=== PATIENT | female | born 1940 | race Caucasian/White ===

== ENCOUNTER 2017-04-20 15:21 | Emergency (ER) | payer MEDICARE, SELFPAY ==
[2017-04-20 16:53] VITALS: BP 129/76; PULSE 92; RESP 20; TEMP 37; O2SAT 96; BMI 31.1
--- NOTE | 2017-04-20 17:01 | HMH.EDUTC ---
[facility] [place] Disposition Clinical Impression: Traumatic hematoma Fall due to ice or snow Qualifiers: Encounter type: initial encounter Qualified Code(s): W00.9XXA - Unspecified fall due to ice and snow, initial encounter Disposition: Home, Self-Care Condition on Discharge: Good Instructions: DI for Hematoma (Bruise) Additional Instructions: Ice 15-20 minutes 3-4x day Elevated as much as possible although in a difficult place Can apply emmy wrap if ensure not too tight but again, difficult place for this Tylenol as needed for pain Bruising will gradually look worse. Referrals: Leigh Ann Acuna APRN [Primary Care Provider] - (Call Saturday. Report diagnosis and that seen here. Request follow up appt as you will need continued evaluation to ensure resolving and surgeon not required. ) Time of Disposition: 19:26 Medical Decision Making Vital Signs: 04/20/17 16:53 Temperature 98.6 F Temperature Source Temporal Artery Scan Pulse Rate [Right Radial] 92 H Respiratory Rate 20 Blood Pressure [Right Arm] 129/76 Blood Pressure Mean [Right Arm] 93 Blood Pressure Source [Right Arm] Automatic Cuff Blood Pressure Position [Right Arm] Sitting 02 Sat by Pulse Oximetry 96 Oxygen Delivery Method Room Air - Lab Data Lab results reviewed: Yes: I reviewed the patient's lab results. Lab Results 04/20/17 17:10: WBC 9.8, RBC 5.54 H, Hgb 13.8, Hct 44.2, MCV 79.7 L, MCH 24.9 L, MCHC 31.3 L, RDW 22.3 H, Plt Count 389, MPV 7.2 L, Neut % (Auto) 67.0, Lymph % (Auto) 22.0, [place] % (Auto) 6.5, Eos % (Auto) 3.8, Baso % (Auto) 0.7, Neut # (Auto) 6.6, Lymph # (Auto) 2.2, [place] # (Auto) 0.6, Eos # (Auto) 0.4, Baso # (Auto) 0.1 04/20/17 17:10: PT 15.4 H, INR 1.42 H, APTT 33.3 04/20/17 17:10: Sodium 141, Potassium 3.2 L, Chloride 100, Carbon Dioxide 34 H, Anion Gap 10.2, BUN 14, Creatinine 0.96, Estimated Creat Clear 56, Estimated GFR 56 L, Est GFR ( Amer) 68, Glucose 88, Total Creatine Kinase 76 Result diagrams: 04/20/17 17:10 04/20/17 17:10 - Radiology Data #1 Image(s): Pelvis, Hip, Other (femur) Image Reviewed: Yes I have reviewed radiologist's interpretation No acute findings - Physician Consults Physician Consulted: Dr. Frey, ER MD Reason -: Pt condition Comment/Response: Discussed PMHx, meds, HPI, exam with ER MD considering size of hematoma. Suggest CPK, CBC, BMP, PT, PTT, INR, hip and pelvis xray although no hip pain. 1919: Discussed pt's results with Dr. Frey. Have patient follow up with primary care Saturday. No treatment or medication changes necessary tonight. - Edvin Inquiry Pt receiving controlled substance: No - Reevaluation(s) Time: 18:50 Reevaluation #1: Went to discuss pt with Dr. Frey, ER MD. He is suturing. Patient updated that he will call be once finished. Provided with water. [facility] [place] HPI - General Stated complaint: ao [id number] fellinjured r hip&Leg Time Seen by Provider: 04/20/17 17:01 Mode of Arrival: Family Vehicle Source of Information: Patient Limitations: No Limitations Description of Symptoms (Recalled from Triage Doc. by RN): PT FELL YESTERDAY AND HAS KNOT ON RIGHT THIGH. HEENT Symptoms (Recalled from RN notes): No Resp Symptoms (Recalled from RN notes): No Skin Symptoms (Recalled from RN notes): No MS Symptoms (Recalled from RN notes): Yes (PT FELL AND HAS KNOT ON RIGHT THIGH) Functional Status (Recalled from RN notes): NA - History of Present Illness Provider Complaint: Here w/ daughter c/o swelling to right thigh after slipping on porch yesterday, covered with ice. States smacked right lateral lower leg on concrete. Denies joint pain or limited ROM. Just this knot hurts . Knot bruised today. No fever. No treatment before arrival. pt does take xarelto and ASA along with a list of other medications - Related Data Home Medications Medication Instructions Recorded Confirmed aspirin 81 mg tablet,delayed 81 mg PO .qday tab 04/02/17 04/20/17 release atorvastatin 80 mg tab
--- NOTE | 2017-04-20 17:11 | ED_ITS ---
[facility] [place] Clinical Impression: Traumatic hematoma Fall due to ice or snow Qualifiers: Encounter type: initial encounter Qualified Code(s): W00.9XXA - Unspecified fall due to ice and snow, initial encounter Disposition: Home, Self-Care Condition on Discharge: Good Instructions: DI for Hematoma (Bruise) Additional Instructions: Ice 15-20 minutes 3-4x day Elevated as much as possible although in a difficult place Can apply emmy wrap if ensure not too tight but again, difficult place for this Tylenol as needed for pain Bruising will gradually look worse. Referrals: Leigh Ann Acuna APRN [Primary Care Provider] - (Call Saturday. Report diagnosis and that seen here. Request follow up appt as you will need continued evaluation to ensure resolving and surgeon not required. ) Time of Disposition: 19:26 Medical Decision Making Vital Signs: 04/20/17 16:53 Temperature 98.6 F Temperature Source Temporal Artery Scan Pulse Rate [Right Radial] 92 H Respiratory Rate 20 Blood Pressure [Right Arm] 129/76 Blood Pressure Mean [Right Arm] 93 Blood Pressure Source [Right Arm] Automatic Cuff Blood Pressure Position [Right Arm] Sitting 02 Sat by Pulse Oximetry 96 Oxygen Delivery Method Room Air - Lab Data Lab results reviewed: Yes: I reviewed the patient's lab results. Lab Results 04/20/17 17:10: WBC 9.8, RBC 5.54 H, Hgb 13.8, Hct 44.2, MCV 79.7 L, MCH 24.9 L , MCHC 31.3 L, RDW 22.3 H, Plt Count 389, MPV 7.2 L, Neut % (Auto) 67.0, Lymph % (Auto) 22.0, [place] % (Auto) 6.5, Eos % (Auto) 3.8, Baso % (Auto) 0.7, Neut # ( Auto) 6.6, Lymph # (Auto) 2.2, Fisher # (Auto) 0.6, Eos # (Auto) 0.4, Baso # (Auto ) 0.1 04/20/17 17:10: PT 15.4 H, INR 1.42 H, APTT 33.3 04/20/17 17:10: Sodium 141, Potassium 3.2 L, Chloride 100, Carbon Dioxide 34 H, Anion Gap 10.2, BUN 14, Creatinine 0.96, Estimated Creat Clear 56, Estimated GFR 56 L, Est GFR ( Amer) 68, Glucose 88, Total Creatine Kinase 76 Result diagrams: 04/20/17 17:10 04/20/17 17:10 - Radiology Data #1 Image(s): Pelvis, Hip, Other (femur) Image Reviewed: Yes I have reviewed radiologist's interpretation No acute findings - Physician Consults Physician Consulted: Dr. Frey, ER MD Reason -: Pt condition Comment/Response: Discussed PMHx, meds, HPI, exam with ER MD considering size of hematoma. Suggest CPK, CBC, BMP, PT, PTT, INR, hip and pelvis xray although no hip pain. 1919: Discussed pt's results with Dr. Frey. Have patient follow up with primary care Saturday. No treatment or medication changes necessary tonight. - Edvin Inquiry Pt receiving controlled substance: No - Reevaluation(s) Time: 18:50 Reevaluation #1: Went to discuss pt with Dr. Frey, ER MD. He is suturing. Patient updated that he will call be once finished. Provided with water. [facility] [place] - General Stated complaint: ao [id number] fellinjured r hip&Leg Time Seen by Provider: 04/20/17 17:01 Mode of Arrival: Family Vehicle Source of Information: Patient Limitations: No Limitations Description of Symptoms (Recalled from Triage Doc. by RN): PT FELL YESTERDAY AND HAS KNOT ON RIGHT THIGH. HEENT Symptoms (Recalled from RN notes): No Resp Symptoms (Recalled from RN notes): No Skin Symptoms (Recalled from RN notes): No MS Symptoms (Recalled from RN notes): Yes (PT FELL AND HAS KNOT ON RIGHT THIGH) Functional Status (Recalled from RN notes): NA - History of Present Illness Provider Complaint: Here w/
--- NOTE | 2017-04-20 17:11 | XR_ITS ---
XR femur RT 2V COMPARISON: None HISTORY: Fell yesterday has hematoma right thigh TECHNIQUE: AP and crosstable lateral views FINDINGS: Right femur is intact with no evidence of recent or old fracture. There is prominent degenerative change of the knee with joint space narrowing both medially and laterally and spurring of the tibial spines. There is diffuse soft tissue swelling of the lateral mid and upper thigh likely due to the known large hematoma. There are no soft tissue foreign bodies or calcifications. IMPRESSION: Prominent degenerative changes of the knee, right femur negative for fracture
--- NOTE | 2017-04-20 17:21 | XR_ITS ---
XR hip RT 2-3V w/pelvis COMPARISON: None HISTORY: Fell on concrete yesterday. TECHNIQUE: AP pelvis cone-down AP and frog-leg views right hip FINDINGS: The iliac bones and pubic bones appear intact. There is prominent spurring of the acetabulum of both hips. There is no significant joint space narrowing on either side is no fracture seen either hip. There is normal range of motion of the right hip on the frog-leg view. SI joints and symphysis pubis are normal. IMPRESSION: Mild degenerative changes of both hips, pelvis and hips negative for fracture
[2017-04-20 17:59] LABS: Basophils # 0.1 K/mm3 (0-0.2); Basophils % 0.7 % (0.1-2.0); Eosinophils # 0.4 K/mm3 (0.0-0.4); Eosinophils % 3.8 % (0.1-12.0); Hematocrit 44.2 % (37.0-47.0); Hemoglobin 13.8 g/dL (12.2-16.2); Lymphocytes # 2.2 K/mm3 (0.7-4.5); Mean Corpuscular HGB Conc 31.3 g/dL (31.8-35.4); Mean Corpuscular Hemoglobin 24.9 pg (27.0-31.2); Mean Corpuscular Volume 79.7 fl (81-99); Mean Platelet Volume 7.2 fl (7.4-10.4); Monocytes # 0.6 K/mm3 (0.1-1.0); Monocytes % 6.5 % (1.7-9.3); Neutrophils # 6.6 K/mm3 (1.8-7.8); Platelet Count 389 K/mm3 (142-424); Red Blood Count 5.54 M/mm3 (4.20-5.40); Red Cell Distribution Width 22.3 % (11.5-17.5); White Blood Count 9.8 K/mm3 (4.8-10.8)
[2017-04-20 18:06] LABS: Activated Partial Thrombo Time 33.3 seconds (23.6-34.0); INR 1.42 (0.9-1.1); Prothrombin Time 15.4 seconds (9.4-11.8)
[2017-04-20 18:10] LABS: Anion Gap 10.2 mEq/L (5-15); Blood Urea Nitrogen 14 mg/dL (7-18); Carbon Dioxide 34 mmol/L (21.0-32.0); Chloride 100 mmol/L (98-107); Creatine Kinase 76 U/L (26-192); Creatinine Clearance Estimated 56 mL/min (0-300); Creatinine,Serum 0.96 mg/dL (0.55-1.02); Estimated Glomerular Filt Rate 56 ml/min (>60); GFR (African American) 68 ML/MIN (>60); Glucose 88 mg/dL (74-106); Potassium 3.2 mmoL/L (3.5-5.1); Sodium 141 mmol/L (136-145)
[2017-04-20 19:28] VITALS: BP 136/77; PULSE 88; RESP 20; TEMP 36.4; O2SAT 98
== END 2017-04-20 19:31 | disposition home or self-care (01) ==
PROVIDERS: Emergency Provider Nurse Practitioner Family; Family Provider Nurse Practitioner Family; PCP Nurse Practitioner Family
DX: S70.11XA Contusion of right thigh, initial encounter (principal); W00.9XXA Unspecified fall due to ice and snow, initial encounter
CPT/HCPCS: 73502; 73552; 80048; 82550; 85025; 85610; 85730; 99201; 99202

== ENCOUNTER 2017-11-02 18:37 | Inpatient (IN) ==
[2017-11-02 19:23] LABS: Basophils # 0.1 K/mm3 (0-0.2); Basophils % 0.5 % (0.1-2.0); Eosinophils # 0.1 K/mm3 (0.0-0.4); Eosinophils % 0.8 % (0.1-12.0); Hematocrit 46.6 % (37.0-47.0); Hemoglobin 16.5 g/dL (12.2-16.2); Lymphocytes # 2.1 K/mm3 (0.7-4.5); Lymphocytes % 14.4 K/mm3 (10-50); Mean Corpuscular HGB Conc 35.5 g/dL (31.8-35.4); Mean Corpuscular Hemoglobin 31.9 pg (27.0-31.2); Mean Corpuscular Volume 89.9 fl (81-99); Mean Platelet Volume 7.4 fl (7.4-10.4); Monocytes # 1.1 K/mm3 (0.1-1.0); Monocytes % 7.7 % (1.7-9.3); Neutrophils # 11.1 K/mm3 (1.8-7.8); Neutrophils % 76.6 % (37.0-80.0); Platelet Count 325 K/mm3 (142-424); Red Blood Count 5.18 M/mm3 (4.20-5.40); Red Cell Distribution Width 14.6 % (11.5-17.5); White Blood Count 14.5 K/mm3 (4.8-10.8)
[2017-11-02 19:25] LABS: Microscopic, Urine URINE MICROSCOPIC (MICROSCOPIC)
[2017-11-02 19:27] LABS: INR 1.34 (0.9-1.1); Prothrombin Time 13.7 seconds (9.4-11.8)
--- NOTE | 2017-11-02 19:29 | Emergency Department Note ---
ED Disposition Condition on Discharge: Serious - Critical Care Critical Care Time: No <SravaniDick - Last Filed: 11/02/17 20:01> <Tushar Chairez - Last Filed: 11/02/17 21:16> Clinical Impression: Severe sepsis, Acute respiratory failure with hypoxia, Hypokalemia, Acute exacerbation of chronic obstructive airways disease UTI (urinary tract infection) Qualifiers: Urinary tract infection type: site unspecified Hematuria presence: without hematuria Qualified Code(s): N39.0 - Urinary tract infection, site not specified Atrial fibrillation Qualifiers: Atrial fibrillation type: chronic Qualified Code(s): I48.2 - Chronic atrial fibrillation Disposition: Admitted As Inpatient Referrals: Leigh Ann Acuna APRN [Primary Care Provider] - Attestation: On 11/02/17, the high probability of a clinically significant, sudden or life threatening deterioration of the following system(s) required my full and direct attention, intervention and personal management. The time I documented below is in addition to time spent performing reported procedures but includes the following listed in this critical care notation. Medical Decision Making - Edvin Inquiry Pt receiving controlled substance: No - Lab Data Result diagrams: 11/02/17 19:00 11/02/17 19:00 - Radiology Data #1 Image(s): Chest Image Reviewed: Yes I reviewed the patient's radiology image - CT Data CT Scan: Head Time Received: 20:[address] Reviewed: Yes: I have viewed the radiologist's interpretation <SravaniDick - Last Filed: 11/02/17 20:01> - Lab Data Lab results reviewed: Yes: I reviewed the patient's lab results. Result diagrams: 11/02/17 19:00 11/02/17 19:00 - ECG Data Tracing #1 I reviewed this ECG and interpreted as documented below: Arrhythmias present: afib Ischemic changes: non-specific ST-T wave changes ECG compared to prior tracings: there are no significant changes - Physician Consults Physician Consulted: breezy Reason -: Admission - Tissue Perfus/Sepsis Re-Eval Reperfusion Exam Performed: Yes Date Performed: 11/02/17 Time Performed: 21:00 Sepsis Follow-Up: Yes: Respiratory exam, Cardiovascular exam, Capillary refill, Peripheral pulse strength, Peripheral pulse location, Skin exam, Vital Signs <Tushar Chairez - Last Filed: 11/02/17 21:16> Vital Signs: 11/02/17 18:50 11/02/17 19:11 11/02/17 20:08 Temperature 100.4 F H Temperature Source Oral Pulse Rate Pulse Rate [Right Radial] 121 H 117 H 105 H Respiratory Rate 24 20 Blood Pressure [Right Arm] 160/78 177/98 145/82 Blood Pressure Mean [Right Arm] 105 124 103 Blood Pressure Source [Right Arm] Automatic Cuff Automatic Cuff Automatic Cuff Blood Pressure Position [Right Arm] Sitting Sitting Supine 02 Sat by Pulse Oximetry 84 L 74 L 93 L Oxygen Delivery Method Room Air Room Air 11/02/17 20:41 11/02/17 20:50 11/02/17 20:51 Temperature 100.3 F H Temperature Source Oral Pulse Rate 83 83 Pulse Rate [Right Radial] Respiratory Rate Blood Pressure [Right Arm] Blood Pressure Mean [Right Arm] Blood Pressure Source [Right Arm] Blood Pressure Position [Right Arm] 02 Sat by Pulse Oximetry Oxygen Delivery Method - Lab Data Lab Results 11/02/17 18:05: Urine Color Yellow, Urine Appearance Sl cloudy, Urine pH 6.5, Ur Specific [place] 1.010, Urine Protein Trace, Urine Glucose (UA) Negative, Urine Ketones Negative, Urine Blood 1+, Urine Nitrate Positive, Urine Bilirubin Negative, Urine Urobilinogen 0.2, Ur Leukocyte Esterase 2+ A, Urine RBC Occasional, Urine WBC 10-20, Ur Squamous Epith Cells 5-10, Urine Bacteria 4+ 11/02/17 19:00: WBC 14.5 H, RBC 5.18, Hgb 16.5 H, Hct 46.6, MCV 89.9, MCH 31.9 H , MCHC 35.5 H, RDW 14.6, Plt Count 325, MPV 7.4, Neut % (Auto) 76.6, Lymph % ( Auto) 14.4, [place] % (Auto) 7.7, Eos % (Auto) 0.8, Baso % (Auto) 0.5, Neut # (Auto ) 11.1 H, Lymph # (Auto) 2.1, [place] # (Auto) 1.1 H, Eos # (Auto) 0.1, Baso # ( Auto) 0.1 11/02/17 19:00: PT 13.7 H, INR 1.34 H 11/02/17 19:00: Sodium 139, Potassium 3.2 L, Chloride 97 L, Carbon Dioxide 31, Anion Gap 14.2, BUN 15, Creatinine 1.43 H, Estimated Creat Clear 35, Estimated GFR 35 L, Est GFR ( Amer) 43 L, Glucose 143 H, Calcium 8.7, Total Bilirubin 1.4 H, AST 16, ALT 25, Alkaline Phosphatase 123 H, Total Creatine Kinase 61, CK-MB (CK-2) 0.6, CK-MB (CK-2) Rel Index 1.0, Troponin I < 0.02, Total Protein 8.3 H, Albumin 3.7, Globulin 4.6 H, Albumin/Globulin Ratio 0.8 L 11/02/17 19:00: Lactate 4.2 H 11/02/17 19:17: Urine Color Yellow, Urine Appearance Clear, Urine pH 7.0, Ur Specific [place] 1.015, Urine Protein 2+, Urine Glucose (UA) Negative, Urine Ketones Negative, Urine Blood 1+, Urine Nitrate Positive A, Urine Bilirubin Negative, Urine Urobilinogen 1, Ur Leukocyte Esterase 1+ A 11/02/17 20:34: ABG pH 7.47 H, ABG pCO2 38.7, ABG pO2 58.0 L, ABG HCO3 27.7 H, ABG Total CO2 28.8 H, ABG O2 Saturation 91, ABG Base Excess 4.0 H Orders (Tests/Meds): ED MEDICATIONS Generic Name Dose Route Start Last Admin Trade Name Freq PRN Reason Stop Dose Admin Albuterol/Ipratropium 3 ml 11/02/17 20:00 11/02/17 20:50 Duoneb 3ml Neb IH 12/02/17 19:59 3 ml QIDRT ESTRELLA Administration Ceftriaxone Sodium 1 gm/ 50 mls @ 100 mls/hr 11/02/17 19:30 11/02/17 19:39 Sodium Chloride IV 11/16/17 19:29 100 mls/hr Q24H ESTRELLA Administration Protocol Sodium Chloride 2,110 mls @ 1,055 mls/hr 11/02/17 19:55 11/02/17 20:04 Sod Chlor 0.9% 1000ml Bag 30 ml/kg infuse over 2 hr (2110 ml) 11/02/17 21: 54 1,055 mls/hr IV Administration .Q2H ONE Discontinued Medications Generic Name Dose Route Start Last Admin Trade Name Nicho PRN Reason Stop Dose Admin Acetaminophen 650 mg 11/02/17 19:39 11/02/17 19:40 Acetaminophen 325mg Tab PO 11/02/17 19:40 650 mg ONCE ONE Administration Methylprednisolone Sodium Succinate 125 mg 11/02/17 19:30 11/02/17 19:39 Solu-Medrol 125mg/2ml Vial IV 11/02/17 19:31 125 mg ONCE ONE Administration Potassium Chloride 40 meq 11/02/17 19:47 11/02/17 20:10 Klor-Con 20meq Tablet PO 11/02/17 19:48 40 meq ONCE ONE Administration ORDERS Category Date Time Status CT head/brain wo con Stat Cat Scan 11/02/17 19:29 Taken XR chest portable Stat Exams 11/02/17 19:07 Taken Urine Culture Stat Micro 11/02/17 18:05 Received Urine Culture Stat Micro 11/02/17 19:09 Uncollected ABG [Arterial Blood Gas] Stat RT 11/02/17 19:17 Ordered 12-lead EKG Request [ECG Request by Dr/Nse] Stat Y 11/02/17 19:09 Ordered - Radiology Data #1 atelectasis left base, no definite infiltrate (Dick Lassiter) - CT Data Findings Narrative: CT scan interpreted by [facility] radiologist. Faxed report received and reviewed: No acute intracranial findings (Dick Lassiter) Medical Decision Narrative: 8:00 PM: At shift change, I have discussed the patient with Dr. Chairez, who will assume care of the patient at this time. I have discussed all clinical information including history, physical and diagnostic study results. Preliminary diagnoses based on information available at this point have been recorded by me. Controlled substance administration and critical care statement are also preliminary, as of the time of handoff. (Dick Lassiter) General Adult HPI - General Mode of Arrival: Wheelchair Limitations: No Limitations Description of Symptoms (Recalled from ER Triage Doc. by RN): Pt currently has a UTI, she was treated for a sinus infection 2 wks ago. Today she is complaining of burning with urination, lethargy, and increased difficulty breathing. Pt doesn't remember falling but she has a red spot on her left restorationism. She thinks she nodded off and leaned side ways hitting her head on the dresser. <Dick Lassiter - Last Filed: 11/02/17 20:01> - General Source of Information: Patient, Relative, Medical Record <ContrerasTushar Kenny - Last Filed: 11/02/17 21:16> - General Chief complaint: Shortness of Breath/Dyspnea Stated complaint: Weakness, frequent urination Time Seen by Provider: 11/02/17 19:27 - History of Present Illness HPI narrative: History from Ronan López [employer] for Dr. Chairez, patient, and daughter. The patient came in today and went to the urgent treatment center for dysuria. She was found to have hypoxemia there. She initially denied shortness of breath , but now admits that she has increasing shortness of breath for 3 days. She is diagnosed with COPD and in fact saw Dr. Cason, commander internal affairs, a year ago and he wanted her on oxygen, but she refused. She has had a cough recently, nonproductive. She feels feverish, but no documented fever. She has rhinorrhea. Denies chest pain. She has never been a smoker. Daughter states she has been falling asleep in mid sentence for the past few days. Sleepy all the time. She has a bump on her left restorationism area. Thinks she might have fallen asleep and fallen and bumped her head on something today. Denies headache currently, but says she had one earlier. (Dick Lassiter) - Related Data Home Medications Medication Instructions Recorded Confirmed aspirin 81 mg tablet,delayed 81 mg PO .qday tab 04/02/17 11/02/17 release atorvastatin 80 mg tablet 80 mg PO Q24H tab 04/02/17 11/02/17 ferrous sulfate 325 mg (65 mg 325 mg PO DAILY tab 05/01/17 11/02/17 iron) tablet metformin 500 mg tablet 500 mg PO DAILY tab 05/23/17 11/02/17 Buspirone HCl 15 mg PO BID 11/02/17 11/02/17 Levothyroxine Sodium [Tirosint] 75 mcg PO DAILY 11/02/17 11/02/17 Previous Rx's Medication Instructions Recorded bisoprolol fumarate 5 mg tablet 5 mg PO DAILY #90 tab 05/27/17 diltiazem CD 180 mg 180 mg PO Q24H #30 cap 06/04/17 capsule,extended release 24 hr rivaroxaban 20 mg tablet 20 mg PO DAILY #30 tab 09/02/17 furosemide 80 mg tablet 80 mg PO Q24H #30 tab 09/09/17 digoxin 125 mcg tablet 125 mcg PO Q24H #30 tab 09/26/17 Allergies Allergy/AdvReac Type Severity Reaction Status Date / Time warfarin [From Coumadin] Allergy Mild Verified 11/02/17 19:22 amiodarone [AMIODARONE] Allergy Unknown Verified 11/02/17 19:22 PEROXIDE Allergy Mild S-BLISTERING Uncoded 03/05/17 14:31 [facility] History I have reviewed the patient's past medical history: Yes Medical History: Reports:: Atrial Fibrillation, Congestive Heart Failure, Coronary Artery Disease, Diabetes Mellitus Type 2, Gastroesophageal Reflux Disease(GERD), Hypertension Other Medical History: Reports: Arthritis Laterality Cases: Right: Arthroscopy Knee, Carpal Tunnel Release, Bilateral: Other Other Surgeries: Yes: Angioplasty, Appendectomy, Hysterectomy-Total, Hysterectomy-Partial Amputation: No Fractures: No - Social History Smoking Status: Never smoker Alcohol Intake: never Family Hx:: Cancer, Heart Attack Comment: Son-Cerebrovascular accident <Dick Lassiter - Last Filed: 11/02/17 20:01> ROS Obtained: Yes All systems reviewed & no additional complaints - Constitutional Constitutional: Reports chills - Cardiovascular Cardiovascular: Denies chest pain - Respiratory Respiratory: No change in phlegm color, Yes cough, Yes dyspnea, No excessive phlegm production, No coughing up blood - Gastrointestinal Gastrointestingal: Denies: abdominal pain, vomiting - Genitourinary Female Genitourinary: Reports dysuria <Dick Lassiter - Last Filed: 11/02/17 20:01> Physical Exam - General General appearance: alert, in no apparent distress - Head Head exam: other (Erythema edema and tenderness left restorationism area, approximately 5 x 10 cm) - Eye Eye exam: Present: normal appearance, PERRL, EOMI - ENT ENT exam: Present: normal exam, normal oropharynx, mucous membranes moist, TM's normal bilaterally, normal external ear exam - Neck Neck exam: Present: normal inspection, full ROM, trachea midline. Absent: meningismus, lymphadenopathy - Chest Chest inspection: Present: normal inspection, symmetric chest wall rise. Absent : tenderness - Respiratory Respiratory exam: Present: normal lung sounds bilaterally. Absent: respiratory distress - Cardiovascular Cardiovascular exam: Present: regular rate, normal rhythm. Absent: JVD - Abdominal Exam Abdominal exam: Present: soft, normal bowel sounds. Absent: distention, tenderness, guarding - Extremities Exam Extremities exam: Present: normal inspection, full ROM, normal capillary refill. Absent: calf tenderness - Back Exam Back exam: Present: normal inspection. Absent: tenderness, CVA tenderness (R), CVA tenderness (L) - Neurological Exam Neurological exam: Present: alert, oriented X3 - Psychiatric Psychiatric exam: Present: normal affect, normal mood - Skin Skin exam: Present: warm, dry, intact, cyanosis (Nailbeds) <Dick Lassiter - Last Filed: 11/02/17 20:01> <Tushar Chairez - Last Filed: 11/02/17 21:16> - General Comment: Pulse ox 90% on nasal cannula oxygen (Dick Lassiter)
[2017-11-02 19:36] LABS: Appearance,Urine SL CLOUDY (Clear); Bilirubin,Urine Negative (Negative); Blood, Urine 1+ (Negative); Color,Urine YELLOW (Yellow); Glucose,Urine (UA) Negative (Negative); Ketones,Urine Negative (Negative); Leukocyte Esterase,Urine 2+ (Negative); PH,Urine 6.5 (5.0-8.5); Protein,Urine TRACE (Negative); Urobilinogen,Urine 0.2 EU/dl (0.2)
[2017-11-02 19:46] LABS: Alanine Aminotransferase 25 U/L (12-78); Albumin Level 3.7 gm/dL (3.4-5.0); Albumin/Globulin Ratio 0.8 (1.1-1.8); Alkaline Phosphatase 123 U/L (46-116); Anion Gap 14.2 mEq/L (5-15); Aspartate Amino Transferase 16 U/L (15-37); Bilirubin,Total 1.4 mg/dL (0.2-1.0); Blood Urea Nitrogen 15 mg/dL (7-18); Calcium 8.7 mg/dL (8.5-10.1); Carbon Dioxide 31 mmol/L (21.0-32.0); Chloride 97 mmol/L (98-107); Creatine Kinase 61 U/L (26-192); Globulin 4.6 gm/dl (1.3-3.2); Glucose 143 mg/dL (74-106); Potassium 3.2 mmoL/L (3.5-5.1); Sodium 139 mmol/L (136-145); Total Protein,Serum 8.3 gm/dL (6.4-8.2)
[2017-11-02 19:54] LABS: Bacteria,Urine 4+ /lpf; RBC,Urine Occasional #/hpf (0-3)
[2017-11-02 20:35] LABS: ABG HCO3 27.7 mmhg (22.0-26.0); ABG Oxygen Saturation 91 % (90-100); ABG PCO2 38.7 mmhg (35.0-45.0); ABG PH 7.47 mmol/L (7.35-7.45); ABG TCO2 28.8 mmhg (23-27)
[2017-11-02 21:27] LABS: Digoxin 0.54 ng/mL (1.15-2.56); T4 (Thyroxine) 10.7 ug/dl (4.7-13.3); Thyroid Stimulating Hormone 1.13 uIU/ml (0.358-3.740)
[2017-11-03 05:44] LABS: Basophils % 0.3 % (0.1-2.0); Eosinophils % 0.1 % (0.1-12.0); Hematocrit 43.9 % (37.0-47.0); Lymphocytes # 0.7 K/mm3 (0.7-4.5); Lymphocytes % 7.4 K/mm3 (10-50); Mean Corpuscular HGB Conc 32.7 g/dL (31.8-35.4); Mean Corpuscular Hemoglobin 29.7 pg (27.0-31.2); Mean Corpuscular Volume 90.9 fl (81-99); Mean Platelet Volume 6.9 fl (7.4-10.4); Monocytes # 0.4 K/mm3 (0.1-1.0); Neutrophils % 88.2 % (37.0-80.0); Platelet Count 227 K/mm3 (142-424); Red Blood Count 4.83 M/mm3 (4.20-5.40); Red Cell Distribution Width 14.4 % (11.5-17.5); White Blood Count 9.1 K/mm3 (4.8-10.8)
[2017-11-03 05:46] LABS: Anion Gap 8.8 mEq/L (5-15); Potassium 3.8 mmoL/L (3.5-5.1)
[2017-11-03 05:52] LABS: Calcium 7.8 mg/dL (8.5-10.1)
[2017-11-03 06:16] LABS: Hemoglobin 14.4 g/dL (12.2-16.2)
--- NOTE | 2017-11-03 07:39 | History & Physical Report ---
*Admission Date: 11/02/17 *Chief complaint: Urinary urgency *History of present illness: 77-year-old female presented to the urgent treatment clinic yesterday with complaint of urinary urgency and frequency. In the [facility] she was noted to be hypoxic on check of her vital signs and she was transferred over to the emergency department. Patient does admit that over the preceding 24-48 hours she had noticed some mild shortness of breath. Workup in the emergency department was begun. Patient informed ER staff she had been battling a urinary tract infection for about 2 weeks with sensation of urinary urgency with incomplete bladder emptying. While she denies fever she had also endorsed chills over the preceding 24 hours. Workup was significant for hypoxia, tachycardia, elevation of white blood cell count, abnormal urine. Patient met criteria for sepsis and was treated as such with fluid bolus. She was given Rocephin for her urinary tract infection and admitted. This morning she states she is feeling better and has not had any urinary symptoms overnight [facility] History I have reviewed the patient's past medical history: Yes Medical History: Reports:: Atrial Fibrillation, Congestive Heart Failure, Coronary Artery Disease, Diabetes Mellitus Type 2, Gastroesophageal Reflux Disease(GERD), Hypertension Other Medical History: Reports: Arthritis Laterality Cases: Right: Arthroscopy Knee, Carpal Tunnel Release, Bilateral: Other Other Surgeries: Yes: Angioplasty, Appendectomy, Hysterectomy-Total, Hysterectomy-Partial Amputation: No Fractures: No - *Social History Smoking Status: Never smoker Alcohol Intake: former Occupational Status: retired - Psychiatric History Expresses thoughts of harming self/others: None Suicide Plan Description: No Plan *Family Hx:: Cancer, Heart Attack Review of Systems - Review of Systems Review of systems:: pertinent systems reviewed and negative unless documented below See HPI Meds Home Medications Medication Instructions Recorded Confirmed Type aspirin 81 mg tablet,delayed 81 mg PO .qday tab 04/02/17 11/02/17 History release atorvastatin 80 mg tablet 80 mg PO Q24H tab 04/02/17 11/02/17 History ferrous sulfate 325 mg (65 mg 325 mg PO DAILY tab 05/01/17 11/02/17 History iron) tablet metformin 500 mg tablet 500 mg PO DAILY tab 05/23/17 11/02/17 History Buspirone HCl 15 mg PO BID 11/02/17 11/02/17 History Digoxin 125 mcg PO Q48H 11/02/17 11/02/17 History Levothyroxine Sodium [Tirosint] 75 mcg PO DAILY 11/02/17 11/02/17 History Allergies Allergy/AdvReac Type Severity Reaction Status Date / Time warfarin [From Coumadin] Allergy Mild Verified 11/02/17 19:22 amiodarone [AMIODARONE] Allergy Unknown Difficulty Verified 11/02/17 21:54 Breathing PEROXIDE Allergy Mild S-BLISTERING Uncoded 03/05/17 14:31 WELTS Exam Vital signs and Labs for Last 24 Hours: Temp Pulse Resp BP Pulse Ox 98.0 F 80 16 129/59 90 L 11/03/17 07:24 11/03/17 07:24 11/03/17 07:24 11/03/17 07:24 11/03/17 07:24 Laboratory Results - last 24 hr 11/02/17 18:05: Urine Color Yellow, Urine Appearance Sl cloudy, Urine pH 6.5, Ur Specific [place] 1.010, Urine Protein Trace, Urine Glucose (UA) Negative, Urine Ketones Negative, Urine Blood 1+, Urine Nitrate Positive, Urine Bilirubin Negative, Urine Urobilinogen 0.2, Ur Leukocyte Esterase 2+ A, Urine RBC Occasional, Urine WBC 10-20, Ur Squamous Epith Cells 5-10, Urine Bacteria 4+ 11/02/17 19:00: WBC 14.5 H, RBC 5.18, Hgb 16.5 H, Hct 46.6, MCV 89.9, MCH 31.9 H , MCHC 35.5 H, RDW 14.6, Plt Count 325, MPV 7.4, Neut % (Auto) 76.6, Lymph % ( Auto) 14.4, [place] % (Auto) 7.7, Eos % (Auto) 0.8, Baso % (Auto) 0.5, Neut # (Auto ) 11.1 H, Lymph # (Auto) 2.1, [place] # (Auto) 1.1 H, Eos # (Auto) 0.1, Baso # ( Auto) 0.1 11/02/17 19:00: PT 13.7 H, INR 1.34 H 11/02/17 19:00: Sodium 139, Potassium 3.2 L, Chloride 97 L, Carbon Dioxide 31, Anion Gap 14.2, BUN 15, Creatinine 1.43 H, Estimated Creat Clear 35, Estimated GFR 35 L, Est GFR ( Amer) 43 L, Glucose 143 H, Calcium 8.7, Total Bilirubin 1.4 H, AST 16, ALT 25, Alkaline Phosphatase 123 H, Total Creatine Kinase 61, CK-MB (CK-2) 0.6, CK-MB (CK-2) Rel Index 1.0, Troponin I < 0.02, Total Protein 8.3 H, Albumin 3.7, Globulin 4.6 H, Albumin/Globulin Ratio 0.8 L 11/02/17 19:00: Lactate 4.2 H 11/02/17 19:00: TSH 1.13, Thyroxine (T4) 10.7, Digoxin 0.54 L 11/02/17 19:17: Urine Color Yellow, Urine Appearance Clear, Urine pH 7.0, Ur Specific [place] 1.015, Urine Protein 2+, Urine Glucose (UA) Negative, Urine Ketones Negative, Urine Blood 1+, Urine Nitrate Positive A, Urine Bilirubin Negative, Urine Urobilinogen 1, Ur Leukocyte Esterase 1+ A 11/02/17 20:34: ABG pH 7.47 H, ABG pCO2 38.7, ABG pO2 58.0 L, ABG HCO3 27.7 H, ABG Total CO2 28.8 H, ABG O2 Saturation 91, ABG Base Excess 4.0 H 11/02/17 23:25: Troponin I < 0.02 11/02/17 23:25: Lactate 0.9 11/03/17 02:49: Troponin I < 0.02 11/03/17 05:30: Troponin I < 0.02 11/03/17 05:30: WBC 9.1 D, RBC 4.83, Hgb 14.4 D, Hct 43.9, MCV 90.9, MCH 29.7 , MCHC 32.7, RDW 14.4, Plt Count 227 D, MPV 6.9 L, Neut % (Auto) 88.2 H, Lymph % (Auto) 7.4 L, [place] % (Auto) 4.0, Eos % (Auto) 0.1, Baso % (Auto) 0.3, Neut # ( Auto) 8.0 H, Lymph # (Auto) 0.7, [place] # (Auto) 0.4, Eos # (Auto) 0.0, Baso # ( Auto) 0.0 11/03/17 05:30: Sodium 141, Potassium 3.8, Chloride 106, Carbon Dioxide 30, Anion Gap 8.8, BUN 16, Creatinine 1.02 D, Estimated Creat Clear 50, Estimated GFR 52 L, Est GFR ( Amer) 63 D, Glucose 159 H, Calcium 7.8 L D, Magnesium 1.9 11/03/17 06:07: POC Glucose 136 H I & O for Last 24 hours: Intake & Output 10/31/17 11/01/17 11/02/17 11/03/17 11:59 11:59 11:59 11:59 Intake Total 4926 / 4926 Balance 4926 / 4926 Weight 156 lb 1 oz Narrative: Patient is awake and alert this morning HEENT exam reveals pupils are reactive to light, normal external ears, moist oropharynx. Neck is without lymphadenopathy or carotid bruits. Lungs are clear to auscultation bilaterally. Heart has an irregularly irregular rate and rhythm. Abdomen is soft, nontender, nondistended. Patient has active range of motion in all extremities. Assessment and Plan (1) UTI (urinary tract infection) Current visit: Yes Status: Acute Qualifiers: Urinary tract infection type: site unspecified Hematuria presence: without hematuria Qualified Code(s): N39.0 - Urinary tract infection, site not specified Category: Medical Code(s): N39.0 - Urinary tract infection, site not specified (2) Acute exacerbation of chronic obstructive airways disease Current visit: Yes Status: Acute Category: Medical Code(s): J44.1 - Chronic obstructive pulmonary disease with (acute) exacerbation (3) Acute respiratory failure with hypoxia Current visit: Yes Status: Acute Category: Medical Code(s): J96.01 - Acute respiratory failure with hypoxia (4) Severe sepsis Current visit: Yes Status: Acute Category: Medical Code(s): A41.9 - Sepsis , unspecified organism; R65.20 - Severe sepsis without septic shock (5) Atrial fibrillation Current visit: Yes Status: Chronic Qualifiers: Atrial fibrillation type: chronic Qualified Code(s): I48.2 - Chronic atrial fibrillation Category: Medical Code(s): I48.91 - Unspecified atrial fibrillation - Assessment and plan all Dx Assessment and Plan for all problems:: Patient is feeling better. She may been working on early pyelonephritis. Continue Rocephin intravenously. DC IV fluids as her appetite is adequate. Await blood and urine cultures
[2017-11-03 08:14] LABS: Lymphocytes % 7 % (10-50); Monocytes % 4 % (2-9); Neutrophils % 88 % (42-76); RBC Morphology Normal; Total Cells Counted 100
--- NOTE | 2017-11-03 10:15 | Pharmacy Consult Notes ---
[facility] Pharmacy VTE Monitoring - Patient Demographics Admission date: 11/03/17 Report Date: 11/03/17 Time: 10:15 Allergies/Adverse Reactions: Patient Allergies hydrogen peroxide Allergy (Severe, Verified 11/03/17 08:41) Blister warfarin [From Coumadin] Allergy (Mild, Verified 11/03/17 08:41) Unknown allergy reaction amiodarone [AMIODARONE] Allergy (Unknown, Verified 11/02/17 21:54) Difficulty Breathing Height: 1.57 m Weight: 70.789 kg Patient Problems: Current Active Problems Severe sepsis (Acute) UTI (urinary tract infection) (Acute) Acute respiratory failure with hypoxia (Acute) Hypokalemia (Acute) Acute exacerbation of chronic obstructive airways disease (Acute) Atrial fibrillation (Chronic) - VTE Risk Labs: VTE Related Lab Results Hgb 14.4 g/dL (12.2-16.2) D 11/03/17 05:30 Hct 43.9 % (37.0-47.0) 11/03/17 05:30 Plt Count 227 K/mm3 (142-424) D 11/03/17 05:30 PT 13.7 seconds (9.4-11.8) H 11/02/17 19:00 INR 1.34 (0.9-1.1) H 11/02/17 19:00 BUN 16 mg/dL (7-18) 11/03/17 05:30 Creatinine 1.02 mg/dL (0.55-1.02) D 11/03/17 05:30 Estimated Creat Clear 50 mL/min (0-300) 11/03/17 05:30 Was VTE Risk Assessment Performed: Yes VTE Score: 5 VTE Risk Level: Low Risk - Prophylaxis Types of VTE Prophylaxis: Pharmacological (XARELTO ORDERED) Location of Applied Device: Not Applicable
--- NOTE | 2017-11-04 07:03 | Progress Note ---
Internal Medicine - PN: Subj *Date: 11/04/17 *Time: 07:01 Interval history: Patient's only complaints this morning are what she considers small things. She is uncomfortable in the bed. Her room was little too cold last night while she was trying to sleep. Otherwise she had an uneventful day yesterday. She has been without supplemental oxygen now for about 24 hours and endorses some dyspnea on exertion but states this is fairly normal to her. She denies cough. Urinary symptoms have nearly resolved and we are awaiting her urine culture Exam Vital signs and Labs for Last 24 Hours: Temp Pulse Resp BP Pulse Ox 97.6 F 72 18 114/53 88 L 11/04/17 04:00 11/04/17 04:00 11/04/17 04:00 11/04/17 04:00 11/04/17 06:09 Laboratory Results - last 24 hr 11/03/17 05:30: Total Counted 100, Neutrophils % (Manual) 88 H, Band Neutrophils % 1.0, Lymphocytes % (Manual) 7 L, Monocytes % (Manual) 4, Platelet Estimate Normal, RBC Morphology Normal 11/03/17 11:55: POC Glucose 158 H 11/03/17 16:45: POC Glucose 208 H 11/03/17 20:54: POC Glucose 151 H 11/04/17 06:22: POC Glucose 133 H I & O for Last 24 hours: Intake & Output 11/01/17 11/02/17 11/03/17 11/04/17 11:59 11:59 11:59 11:59 Intake Total 4926 / 4926 100 / 100 Output Total 700 / 700 Balance 4926 / 4926 -600 / -600 Weight 156 lb 1 oz 151 lb 3 oz Microbiology Reports for the Last 24 Hours: Microbiology 11/02/17 18:05 Urine,Clean Catch Urine Culture - Preliminary Narrative: Patient is awake and alert. Lungs have some basilar crackles that clear with deep breathing. Heart rate is irregularly irregular. Abdomen is soft Assessment and Plan (1) UTI (urinary tract infection) Current visit: Yes Status: Acute Qualifiers: Urinary tract infection type: site unspecified Hematuria presence: without hematuria Qualified Code(s): N39.0 - Urinary tract infection, site not specified Category: Medical Code(s): N39.0 - Urinary tract infection, site not specified (2) Acute exacerbation of chronic obstructive airways disease Current visit: Yes Status: Acute Category: Medical Code(s): J44.1 - Chronic obstructive pulmonary disease with (acute) exacerbation (3) Acute respiratory failure with hypoxia Current visit: Yes Status: Acute Category: Medical Code(s): J96.01 - Acute respiratory failure with hypoxia (4) Severe sepsis Current visit: Yes Status: Acute Category: Medical Code(s): A41.9 - Sepsis , unspecified organism; R65.20 - Severe sepsis without septic shock (5) Atrial fibrillation Current visit: Yes Status: Chronic Qualifiers: Atrial fibrillation type: chronic Qualified Code(s): I48.2 - Chronic atrial fibrillation Category: Medical Code(s): I48.91 - Unspecified atrial fibrillation (6) Hypertensive heart disease Current visit: Yes Status: Acute Category: Medical Code(s): I11.9 - Hypertensive heart disease without heart failure (7) Chronic diastolic heart failure Current visit: Yes Status: Acute Category: Medical Code(s): I50.32 - Chronic diastolic (congestive) heart failure - Assessment and plan all Dx Assessment and Plan for all problems:: 1. Await urine culture, possible discharge this afternoon 2. Continue to monitor O2 sats. Patient does have known chronic diastolic heart failure.
--- NOTE | 2017-11-04 16:35 | Discharge Summary ---
General - General Admission date:: 11/02/17 Discharge date: 11/04/17 HPI HPI: 77-year-old female presented to the urgent treatment clinic yesterday with complaint of urinary urgency and frequency. In the [facility] she was noted to be hypoxic on check of her vital signs and she was transferred over to the emergency department. Patient does admit that over the preceding 24-48 hours she had noticed some mild shortness of breath. Workup in the emergency department was begun. Patient informed ER staff she had been battling a urinary tract infection for about 2 weeks with sensation of urinary urgency with incomplete bladder emptying. While she denies fever she had also endorsed chills over the preceding 24 hours. Workup was significant for hypoxia, tachycardia, elevation of white blood cell count, abnormal urine. Patient met criteria for sepsis and was treated as such with fluid bolus. She was given Rocephin for her urinary tract infection and admitted. This morning she states she is feeling better and has not had any urinary symptoms overnight Hospital Course Hospital Course: Patient was admitted after evaluation in the emergency department triggered a sepsis response. Patient was placed on IV fluids and received her 3 L bolus. She was given Rocephin intravenously for possibility of early pyelonephritis. Urinalysis was positive for nitrates. She did not have any fevers. By the morning following admission patient had near resolution of urinary frequency and urgency. Over the following 24 hours symptoms resolved. Urine culture was growing 2 gram-negative organisms. While patient had been given Rocephin initially on the day of discharge she was given Invanz 1 g to cover the possibility of an ESBL positive organism. From a physical and mental standpoint the patient was doing quite well and admitted she felt like she was at her baseline. She was hypoxic with some exertion but this is also her baseline at home. Patient was discharged home with 3 additional days of Cipro and will follow up with her primary care provider, Leigh Ann Acuna APRN either tomorrow or Saturday morning Objective Vital signs: Temp Pulse Resp BP Pulse Ox 97.6 F 72 18 123/49 93 L 11/04/17 15:50 11/04/17 15:50 11/04/17 15:50 11/04/17 15:50 11/04/17 15:50 Results Labs on day of discharge: Labs from last 24 hours 11/04/17 11/04/17 11/04/17 16:23 10:51 06:22 POC Glucose 109 173 H 133 H Urine Color Urine Appearance Urine pH Ur Specific [place] Urine Protein Urine Glucose (UA) Urine Ketones Urine Blood Urine Nitrate Urine Bilirubin Urine Urobilinogen Ur Leukocyte Esterase Urine RBC Urine WBC Ur Squamous Epith Cells Urine Bacteria 11/03/17 11/03/17 11/02/17 20:54 16:45 18:05 POC Glucose 151 H 208 H Urine Color Yellow Urine Appearance Sl cloudy Urine pH 6.5 Ur Specific [place] 1.010 Urine Protein Trace Urine Glucose (UA) Negative Urine Ketones Negative Urine Blood 1+ Urine Nitrate Positive Urine Bilirubin Negative Urine Urobilinogen 0.2 Ur Leukocyte Esterase 2+ A Urine RBC Occasional Urine WBC 10-20 Ur Squamous Epith Cells 5-10 Urine Bacteria 4+ Preliminary micro results at discharge 11/02/17 18:05 Urine Culture - Preliminary Urine,Clean Catch Gram Negative Rods Gram Negative Rods#2 DS: Diagnosis - Discharge Diagnosis (1) UTI (urinary tract infection) Status: Acute (2) Acute exacerbation of chronic obstructive airways disease Status: Acute (3) Acute respiratory failure with hypoxia Status: Acute (4) Severe sepsis Status: Acute (5) Atrial fibrillation Status: Chronic (6) Hypertensive heart disease Status: Acute (7) Chronic diastolic heart failure Status: Acute Discharge Plan - Patient Discharge Instructions ACTIVITY: Continue current activity DIET: continue same diet Patient Instructions: Heart-Healthy Diet - Follow up Plan Follow up with: Leigh Ann Acuna APRN [Primary Care Provider] - Disposition: Home, Self-Longterm Medications: Home Medications Medication Instructions Recorded Confirmed Type aspirin 81 mg tablet,delayed 81 mg PO DAILY tab 04/02/17 11/03/17 History release atorvastatin 80 mg tablet 80 mg PO HS tab 04/02/17 11/03/17 History ferrous sulfate 325 mg (65 mg 325 mg PO DAILY tab 05/01/17 11/02/17 History iron) tablet metformin 500 mg tablet 500 mg PO DAILY tab 05/23/17 11/02/17 History Buspirone HCl 15 mg PO BID 11/02/17 11/02/17 History Digoxin 125 mcg PO Q48H 11/02/17 11/02/17 History Levothyroxine Sodium [Tirosint] 75 mcg PO DAILY 11/02/17 11/02/17 History Rivaroxaban [Xarelto] 20 mg PO 1700 11/03/17 11/03/17 History Prescriptions/Medication Reconciliation: New Ciprofloxacin HCl [Ciprofloxacin 250mg Tab] 250 mg PO BID #6 tab Continue aspirin 81 mg tablet,delayed release 81 mg PO DAILY tab atorvastatin 80 mg tablet 80 mg PO HS tab ferrous sulfate 325 mg (65 mg iron) tablet 325 mg PO DAILY tab metformin 500 mg tablet 500 mg PO DAILY tab bisoprolol fumarate 5 mg tablet 5 mg PO DAILY #90 tab diltiazem CD 180 mg capsule,extended release 24 hr 180 mg PO Q24H #30 cap furosemide 80 mg tablet 80 mg PO Q24H #30 tab Buspirone HCl 15 mg PO BID Digoxin 125 mcg PO Q48H Rivaroxaban [Xarelto] 20 mg PO 1700 Levothyroxine Sodium [Tirosint] 75 mcg PO DAILY
== END 2017-11-04 17:18 | disposition home or self-care (01) ==
LOC: ER 18:37 → 2ND 21:13
PROVIDERS: ADMIT Family Medicine; ATTEND Family Medicine

== ENCOUNTER → 2017-12-16 12:54 | Outpatient (CLI) | payer MEDICARE, SELFPAY ==
--- NOTE | 2017-12-16 12:56 | CA_ITS ---
PROCEDURE: 2-D M-mode and color Doppler study INDICATIONS FOR THE TEST: Chest pain COPD+ Heart Murmur Tobacco Smoking Palpitations Fatigue+ Syncope Edema Hypertension+Diabetes Mellitus+ Rheumatic Fever SOB+CAMARENA+Obesity Hyperlipidemia+ Family History HD+ Additional History CAD, Pacemaker, Afib, CHF PATIENT INFORMATION HEIGHT: 63 WEIGHT: 154 GENDER: Female B/P: 119/65 2-D/M-MODE INTERPRETATION: 2-D MEASUREMENTS OBSERVED VALUES IN CMS Right Ventricular Dimension (RVDd) 2.0 Interventricular Septum (Thickness)(IVsd) 1.2 Left Ventricular Internal Dimensions(LVIDd) 4.4 Left Ventricular Posterior Wall (Thickness)(LVPWd) 1.0 Aortic Root 3.5 Aortic Cusp Separation 2.1 Left Atrial Dimensions (LAD) 4.7 2D 1. Left atrium is moderately enlarged, left ventricle is normal size, mild concentric left ventricular hypertrophy, visually estimated ejection fraction 55% with no regional wall motion abnormality. 2. The right atrium and right ventricle are moderately enlarged with normal contractility, there is a pacemaker lead seen in the right atrium and right ventricle. 3. The aortic valve is minimally thickened and fibrosed. 4. The mitral and tricuspid valve leaflets are minimally thickened. 5. The pulmonic valve is poorly visualized. 6. No significant pericardial effusion noted. DOPPLER INTERROGATION: Doppler interrogation of the aortic, mitral and tricuspid valvular presence of mild mitral and tricuspid regurgitation, tricuspid regurgitation jet velocity is insufficient for calculation of the right ventricular systolic pressure, diastolic parameters are inconclusive. CONCLUSION: 1. Moderate biatrial enlargement, normal left ventricular size, mild concentric left ventricular hypertrophy, visually estimated ejection fraction 55% with no regional wall motion abnormality. 2. Moderately enlarged right ventricle with normal contractility. 3. Mild mitral and tricuspid regurgitation 4. No significant pericardial effusion noted.
== END ==
PROVIDERS: Family Provider Nurse Practitioner Family; PCP Nurse Practitioner Family; Visit Provider Internal Medicine Cardiovascular Disease
DX: I11.0 Hypertensive heart disease with heart failure (principal); I50.32 Chronic diastolic (congestive) heart failure
CPT/HCPCS: 93306

== ENCOUNTER → 2018-09-24 13:15 | Outpatient (CLI) | payer MEDICARE, SELFPAY ==
[2018-09-24 15:34] LABS: Alanine Aminotransferase 30 U/L (12-78); Albumin Level 3.5 gm/dL (3.4-5.0); Alkaline Phosphatase 100 U/L (46-116); Aspartate Amino Transferase 21 U/L (15-37); Bilirubin,Direct 0.2 mg/dL (0.0-0.2); Bilirubin,Indirect 0.6 mg/dL (0.0-0.9); Bilirubin,Total 0.8 mg/dL (0.2-1.0); Chol/HDL Ratio 2.7 (1-3.5); Cholesterol 104 mg/dL (140-200); HDL Cholesterol 39 mg/dL (29-89); LDL Cholesterol 37 mg/dL (0-130); Total Protein,Serum 6.7 gm/dL (6.4-8.2); Triglycerides 138 mg/dL (30-200); VLDL Cholesterol 28 mg/dL (0-40)
== END ==
PROVIDERS: Visit Provider Internal Medicine
DX: I11.0 Hypertensive heart disease with heart failure (principal); I25.10 Atherosclerotic heart disease of native coronary artery without angina pectoris; I48.2 Chronic atrial fibrillation; I50.32 Chronic diastolic (congestive) heart failure; Z79.01 Long term (current) use of anticoagulants; Z95.0 Presence of cardiac pacemaker
CPT/HCPCS: 36415; 80061; 80076

== ENCOUNTER → 2018-12-08 06:55 | Outpatient (CLI) | payer MEDICARE, SELFPAY ==
--- NOTE | 2018-12-08 | CA_ITS ---
APPROVED REPORT Exam: Pharmacologic Technologist: Corazon Prather Ht: 5 ft 3 in Wt: 153 lbs BSA: 1.73 m2 HR: 70 bpm BP: 132/62 mmHg Stress Test Details HR Resting HR: 70 bpm Max Heart Rate (APMHR): 140 bpm Max HR Achieved: 89 bpm Target HR (85% APMHR): 119 bpm % of APMHR: 63 Recovery HR: 78 bpm BP Resting BP: 132.0/62.0 mmHg Max BP: 146.0/62.0 mmHg Recovery BP: 134.0/68.0 mmHg ECG Stress ECG Conclusion Resting ECG: Paced Rhythm (Atrial Fibrillation) Symptoms: Shortness of breath during peak infusion. Resolved in recovery. No chest pain Arrhythmias/Ectopy: No ectopy ST-T Changes: Less than 1.5mm ST depression. Conclusion: Images to follow Electronically signed by : Alberto Spring, 12/08/2018 21:18:39
--- NOTE | 2018-12-08 06:57 | NM_ITS ---
APPROVED REPORT Exam: Nuclear Stress Test Indication: SOB, HTN, Family history, CAD, Hx of CA, Pre-op Patient Location: Outpatient Stress Tech: Corazon Prather NM Tech:Leelee Angeles, ARRT, RT (R)(N) Ht: 5 ft 3 in Wt: 153 lbs BSA: 1.73 m2 HR: 70 bpm BP: 132/62 mmHg BMI: 27.0 History: SOB, HTN, Family history, CAD, Hx of CA, Pre-op Procedure: Patient received a 0.4 mg of intravenous Lexiscan, resting heart rate 70 bpm, resting blood pressure 132/62 mmHg, with Lexiscan maximum heart rate achived was 89 bpm which is 85 % of the maximum predicted heart rate and blood pressure was 140/72 mmHg. With Lexiscan, patient denied any complaint of chest pain. Electrocardiogram Resting electrocardiogram showed atrial fibrillation, nonspecific ST-T changes, intermittent paced rhythm. With Lexiscan there is less than 1.[address] segment depression noted from the baseline EKG. Intermittent paced beat with left bundle branch morphology was also seen. The EKG portion of the Lexiscan Myoview is nondiagnostic. Cardiac Stress and Resting SPECT Images: Cardiac Stress and Resting SPECT images were obtained using technetium 99m Myoview 32.5 mCi stress and 10.73 mCi at rest. Gated SPECT with analysis of segmental wall motion and calculation of the ejection fraction also done. Cardiac stress and resting SPECT images show uniform myocardial activity without segmental perfusion abnormality, computer derived ejection fraction is 50% with no regional wall motion abnormality, right ventricle is mildly enlarged with normal contractility. Conclusion: 1. The EKG portion of the Lexiscan Myoview is nondiagnostic. 2. No obvious scintigraphic evidence of reversible ischemia seen, computer derived ejection fraction 50% with no regional wall motion abnormality, right ventricle is mildly enlarged with normal contractility. 3. Normal Lexiscan perfusion imaging. Electronically signed by : Alberto Spring, 12/08/2018 21:11:32
--- NOTE | 2018-12-08 06:57 | CA_ITS ---
APPROVED REPORT EXAM: Comprehensive 2D, Doppler, and color-flow Echocardiogram Tool Room Machinist: Ingrid Vanegas RDCS Ht: 5 ft 4 in Wt: 153lbs BSA: 1.75 BP: 121/59 mmHg Indications: PACEMAKER PRE OP CLEARANCE Congestive Heart Failure, Atrial Fibrillation, CAD, Hypertension/HDD 2D Dimensions LVOT 2.00 cm (M/F) 1.5-2.5 M-Mode Dimensions RVDd 2.90 cm (0.9-2.6) LA Diam 5.30 cm (1.9-4.0) LVDd 4.60 cm (3.5-5.7) Ao Diam 3.70 cm (2.0-3.7) LVDs 2.80 cm (3.5-5.7) AV Cusp 2.40 cm (1.5-2.6) IVSd 1.90 cm (0.6-1.1) PWd 1.20 cm (0.6-1.1) EF (Teich) 69.60% FS 39.10% EDV (Teich) 97.30 mL ESV (Teich) 29.60 mL LV Diastology E/A Ratio 4.3 Mitral Valve MV E Max Robert. 89.30 (40-130 cm/s) MV A Velocity 20.70 (40-130 cm/s) E/A Ratio 4.30 Tricuspid Valve TR P. Velocity 369.00 cm/s RAP Estimate 10.00 mmHg RVSP 64.00 mmHg Left Ventricle Left atrium is moderately enlarged, left ventricle is normal size, mild concentric left ventricular hypertrophy, visually estimated ejection fraction 50% with no regional wall motion abnormality, endocardial surfaces are poorly visualized, there is abnormal septal motion. Diastolic parameters are inconclusive. Right Ventricle Right atrium and right ventricular moderately large, contractility of the right ventricle is normal, there is a pacemaker lead seen in the right atrium and right ventricle. Aortic Valve Aortic valve is minimally thickened and fibrosed, there is no aortic stenosis aortic insufficiency. Mitral Valve Mitral valve has mitral calcification, leaflets are minimally thickened, there is no mitral stenosis, there is mild mitral regurgitation. Tricuspid Valve Tricuspid valve leaflets are minimally thickened, there is mild tricuspid regurgitation, calculated right ventricular systolic pressure is 73 mmHg consistent with severely elevated right ventricular systolic pressure. Inferior vena cava is not well-visualized. Pulmonic Valve Pulmonic valve is poorly visualized. Great Vessels Aortic root is normal size. Pericardium No significant pericardial effusion noted. Conclusion 1. Moderate biatrial enlargement, normal left ventricular size, mild concentric left ventricular hypertrophy, visually estimated ejection fraction 50%, there is abnormal septal motion, diastolic parameters are inconclusive. Endocardial surfaces are poorly visualized. 2. Moderately enlarged right ventricle with normal contractility. 3. Mild mitral and tricuspid regurgitation, calculated right ventricular systolic pressure is 73 mmHg consistent with severely elevated right ventricular systolic pressure. 4. No significant pericardial effusion noted, inferior vena cava is not well visualized. Electronically signed by : Alberto Spring, 12/09/2018 06:11:48
--- NOTE | 2018-12-08 07:16 | HMH.ITSHM ---
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 []RIVAROXABAN PIOGLITAZONE METFORMIN LISINOPRIL LEVOTHYROXINE FUROSEMIDE DILTIAZEM DIGOXIN CETIRIZINE BUSPIRONE BISOPROLOL ATORVASTATIN ASA
== END ==
PROVIDERS: PCP Nurse Practitioner Family; Visit Provider Urology
DX: I11.0 Hypertensive heart disease with heart failure; I25.10 Atherosclerotic heart disease of native coronary artery without angina pectoris; Z01.818 Encounter for other preprocedural examination; I44.0 Atrioventricular block, first degree; I48.2 Chronic atrial fibrillation; I50.32 Chronic diastolic (congestive) heart failure; N18.3 Chronic kidney disease, stage 3 (moderate); R06.02 Shortness of breath; Z79.01 Long term (current) use of anticoagulants; Z95.0 Presence of cardiac pacemaker; E78.49 Other hyperlipidemia
CPT/HCPCS: 78452; 93017; 93306; A9502; J2785

== ENCOUNTER → 2018-12-25 11:21 | Outpatient (CLI) | payer MEDICARE, SELFPAY ==
[2018-12-25 12:57] LABS: Anion Gap 9.8 mEq/L (5-15); Blood Urea Nitrogen 23 mg/dL (7-18); Calcium 8.7 mg/dL (8.5-10.1); Carbon Dioxide 32 mmol/L (21.0-32.0); Chloride 106 mmol/L (98-107); Creatinine,Serum 1.25 mg/dL (0.55-1.02); Estimated Glomerular Filt Rate 41 ml/min (>60); GFR (African American) 50 ML/MIN (>60); Glucose 96 mg/dL (74-106); Potassium 4.8 mmoL/L (3.5-5.1); Sodium 143 mmol/L (136-145)
== END ==
PROVIDERS: Visit Provider Urology
DX: Z01.818 Encounter for other preprocedural examination; E78.49 Other hyperlipidemia; I11.0 Hypertensive heart disease with heart failure; I25.10 Atherosclerotic heart disease of native coronary artery without angina pectoris; I44.0 Atrioventricular block, first degree; I50.32 Chronic diastolic (congestive) heart failure; N18.3 Chronic kidney disease, stage 3 (moderate); R06.02 Shortness of breath; Z79.01 Long term (current) use of anticoagulants; Z95.0 Presence of cardiac pacemaker
CPT/HCPCS: 36415; 80048

== ENCOUNTER 2019-02-03 13:28 | Inpatient (IN) ==
--- NOTE | 2019-02-03 14:34 | Emergency Department Note ---
ED Disposition Clinical Impression: Fall, DELILAH (acute kidney injury) Disposition: Admitted as Observation Condition on Discharge: Fair Referrals: Breanne Clayton [Primary Care Provider] - Time of Disposition: 18:03 - Critical Care Critical Care Time: No Attestation: On 02/03/19, the high probability of a clinically significant, sudden or life threatening deterioration of the following system(s) required my full and direct attention, intervention and personal management. The time I documented below is in addition to time spent performing reported procedures but includes the fo llowing listed in this critical care notation. Medical Decision Making - Medical Records Medical records reviewed: Yes: I reviewed the patient's medical records. - Edvin Inquiry Pt receiving controlled substance: No Edvin was queried for this patient: No Vital Signs: 02/03/19 13:48 02/03/19 14:21 02/03/19 15:42 Temperature 98.3 F 97.7 F Temperature Source Oral Oral Pulse Rate [Right Brachial] 76 68 76 Respiratory Rate 20 18 Blood Pressure [Right Arm] 98/45 L 78/43 L 101/50 L Blood Pressure Mean [Right Arm] 62 54 67 Blood Pressure Source [Right Arm] Automatic Cuff Blood Pressure Position [Right Arm] Sitting Sitting 02 Sat by Pulse Oximetry 95 98 97 Oxygen Delivery Method Room Air Room Air 02/03/19 16:00 Temperature Temperature Source Pulse Rate [Right Brachial] 98 H Respiratory Rate Blood Pressure [Right Arm] 111/60 Blood Pressure Mean [Right Arm] 77 Blood Pressure Source [Right Arm] Blood Pressure Position [Right Arm] Sitting 02 Sat by Pulse Oximetry Oxygen Delivery Method - Lab Data Lab results reviewed: Yes: I reviewed the patient's lab results. Lab Results 02/03/19 14:10: WBC 10.2, RBC 4.30, Hgb 12.9, Hct 39.6, MCV 92.1, MCH 29.9, MCHC 32.5, RDW 15.0, Plt Count 247, MPV 7.7, Neut % (Auto) 74.8, Lymph % (Auto) 16.3, [place] % (Auto) 6.7, Eos % (Auto) 1.4, Baso % (Auto) 0.8, Neut # (Auto) 7.6, Lymph # (Auto) 1.7, [place] # (Auto) 0.7, Eos # (Auto) 0.2, Baso # (Auto) 0.1 02/03/19 14:10: Sodium 131 L, Potassium 5.3 H, Chloride 97 L, Carbon Dioxide 22, Anion Gap 17.3 H, BUN 78 H, Creatinine 4.23 H, Estimated Creat Clear 11, E stimated GFR 10 L*, Est GFR ( Amer) 12 L*, Glucose 119 H, Calcium 8.4 L, Total Bilirubin 0.5, Direct Bilirubin 0.2, Indirect Bilirubin 0.3, AST 17, ALT 19, Alkaline Phosphatase 88, Troponin I < 0.02, Total Protein 7.0, Albumin 3.3 L 02/03/19 15:54: Urine Color Yellow, Urine Appearance Clear, Urine pH 6.0, Ur Specific [place] 1.010, Urine Protein Negative, Urine Glucose (UA) Negative, Urine Ketones Negative, Urine Blood Negative, Urine Nitrate Negative, Urine Bilirubin Negative, Urine Urobilinogen 0.2, Ur Leukocyte Esterase Negative, Urine WBC Occasional, Ur Squamous Epith Cells 3-5, Urine Bacteria 1+ 02/03/19 16:50: Sodium 135 L, Potassium 5.2 H, Chloride 103, Carbon Dioxide 24, Anion Gap 13.2, BUN 69 H, Creatinine 3.38 H D, Estimated Creat Clear 14, Estimat ed GFR 13 L*, Est GFR ( Amer) 16 L* D, Glucose 110 H, Calcium 7.9 L Result diagrams: 02/03/19 14:10 02/03/19 16:50 Orders (Tests/Meds): ED MEDICATIONS Discontinued Medications Generic Name Dose Route Start Last Admin Trade Name Freq PRN Reason Stop Dose Admin Sodium Chloride 1,000 mls @ 999 mls/hr 02/03/19 14:45 02/03/19 14:34 Sod Chlor 0.9% 1000ml Bag IV 02/03/19 15:45 999 mls/hr .Q1H1M ESTRELLA Administration Sodium Chloride 1,000 mls @ 999 mls/hr 02/03/19 14:45 02/03/19 15:41 Sod Chlor 0.9% 1000ml Bag IV 02/03/19 15:45 999 mls/hr .Q1H1M ESTRELLA Administration Morphine Sulfate 2 mg 02/03/19 15:54 02/03/19 15:58 Morphine 2mg/Ml Syringe IV 02/03/19 15:55 2 mg ONCE ONE Administration Ondansetron HCl 4 mg 02/03/19 15:54 02/03/19 15:58 Zofran 4mg/2ml Vial IV 02/03/19 15:55 4 mg ONCE ONE Administration ORDERS Category Date Time Status CK [Creatine Kinase] Stat Lab 02/03/19 18:01 Ordered - Physician Consults Physician Consulted: opal Time: 18:02 Reason -: Pt condition Comment/Response: admit General Adult HPI - General Chief complaint: Dizziness Stated complaint: syncope, fell Time Seen by Provider: 02/03/19 14:29 Mode of Arrival: Wheelchair Source of Information: Patient Limitations: No Limitations Description of Symptoms (Recalled from ER Triage Doc. by RN): to ed per pvt car pt sent to ed from [facility] for eval. pt with c/o dizziness, nausea, multiple falls starting saturday. family c/o syncopal episodes but pt denies. pt states she bent over yesterday became dizzy and fell hitting lt hip on wall c/o pain. large hematoma, bruising noted lt hip area. limited wgt bearing lt side. pt alert skin pale. - History of Present Illness HPI narrative: patient had a fall today, has pain in left hip/buttock. Large hematoma noted. BP is low on arrival. She lives alone. Has frequent falls. - Related Data Home Medications Medication Instructions Recorded Confirmed aspirin 81 mg tablet,delayed 81 mg PO DAILY tab 04/02/17 12/16/18 release metformin 500 mg tablet 500 mg PO DAILY tab 05/23/17 12/16/18 buspirone 15 mg tablet 15 mg PO BID tab 11/11/18 12/16/18 cetirizine 10 mg tablet 10 mg PO DAILY tab 11/11/18 12/16/18 lisinopril 10 mg tablet 10 mg PO DAILY 11/11/18 12/16/18 pioglitazone 15 mg tablet 15 mg PO DAILY 11/11/18 12/16/18 Previous Rx's Medication Instructions Recorded digoxin 125 mcg (0.125 mg) tablet 125 mcg PO DAILY #30 tab 12/03/17 levothyroxine 75 mcg capsule 75 mcg PO DAILY #90 cap 12/04/17 atorvastatin 80 mg tablet 80 mg PO HS #90 tab 02/13/18 bisoprolol fumarate 5 mg tablet 5 mg PO QDAY #30 tab 03/05/18 furosemide 80 mg tablet 80 mg PO Q24H #90 tab 10/06/18 spironolactone 25 mg tablet 25 mg PO DAILY #30 tab 12/16/18 diltiazem CD 180 mg 180 mg PO Q24H #30 cap 12/29/18 capsule,extended release 24 hr Cyclobenzaprine HCl 10 mg PO Q8H PRN 30 Days #90 tab 01/09/19 [Cyclobenzaprine 10mg Tab] rivaroxaban 20 mg tablet 20 mg PO DAILY #30 tab 01/28/19 Allergies Allergy/AdvReac Type Severity Reaction Status Date / Time hydrogen peroxide Allergy Severe Blister Verified 12/16/18 08:58 amiodarone [AMIODARONE] Allergy Unknown Difficulty Verified 12/16/18 08:58 Breathing [facility] History - Hepatitis A Screen Drug use history?: No High risk sexual behaviors?: No History of sexually transmitted infection?: No Currently employed?: No Childcare worker?: No Do you have indoor plumbing?: Yes Do you have electricity?: Yes Attestation statement:: This patient has been screened for Hepatitis A risk factors. I have reviewed the patient's past medical history: Yes Medical History: Reports:: Atrial Fibrillation, Congestive Heart Failure, Coronary Artery Disease, Diabetes Mellitus Type 2, Gastroesophageal Reflux Disease(GERD), Hypertension Other Medical History: Reports: Arthritis Laterality Cases: Right: Arthroscopy Knee, Carpal Tunnel Release, Bilateral: Other Other Surgeries: Yes: Angioplasty, Appendectomy, Hysterectomy-Total, Hysterectomy-Partial Amputation: No Fractures: No - Social History Smoking Status: Never smoker Alcohol Intake: never Substance Use Type: denies use Occupational Status: retired Family Hx:: Cancer, Heart Attack Comment: Son-Cerebrovascular accident ROS Obtained: Yes All systems reviewed & no additional complaints - Constitutional Constitutional: Denies fever(s) - Eyes Eyes: Denies change in vision - Cardiovascular Cardiovascular: Denies chest pain at rest - Respiratory Respiratory: No system reviewed and no additional complaints, except as docu - Gastrointestinal Gastrointestingal: Denies: abdominal pain - Musculoskeletal Musculoskeletal: Reports system reviewed and no additional complaints, except as docu, Reports joint swelling, Reports limited range of motion, Reports stiffness - Integumentary/Breasts Skin/Breast: Denies skin pain - Neurologic Neurologic: Reports system reviewed and no additional complaints, except as docu - Endocrine Endocrine: Reports system reviewed and no additional complaints, except as docu - Hematologic/Lymphatic Henatologic/Lymphatic: Reports system reviewed and no additional complaints, except as docu - Allergic/Immunologic Allergic/Immunologic: Reports system reviewed and no additional complaints, except as docu Physical Exam - General General appearance: alert, in no apparent distress - Head Head exam: atraumatic, normocephalic, normal inspection - Eye Eye exam: Present: normal appearance, PERRL, EOMI - ENT ENT exam: Present: normal exam, normal oropharynx, mucous membranes moist, TM's normal bilaterally, normal external ear exam - Chest Chest inspection: Present: normal inspection, symmetric chest wall rise. Absent: tenderness - Respiratory Respiratory exam: Present: normal lung sounds bilaterally. Absent: respiratory distress - Cardiovascular Cardiovascular exam: Present: regular rate, normal rhythm. Absent: JVD - Abdominal Exam Abdominal exam: Present: soft, normal bowel sounds. Absent: distention, tenderness, guarding - Extremities Exam Extremities exam: Present: tenderness, normal capillary refill, other (large hematoma left buttock/hip, tense with blood). Absent: normal inspection, full ROM - Neurological Exam Neurological exam: Present: alert, oriented X3 - Psychiatric Psychiatric exam: Present: normal affect, normal mood - Skin Skin exam: Present: erythema
[2019-02-03 14:37] LABS: Basophils # 0.1 K/mm3 (0-0.2); Basophils % 0.8 % (0.1-2.0); Eosinophils # 0.2 K/mm3 (0.0-0.4); Eosinophils % 1.4 % (0.1-12.0); Hematocrit 39.6 % (37.0-47.0); Hemoglobin 12.9 g/dL (12.2-16.2); Lymphocytes # 1.7 K/mm3 (0.7-4.5); Lymphocytes % 16.3 % (10-50); Mean Corpuscular HGB Conc 32.5 g/dL (31.8-35.4); Mean Corpuscular Volume 92.1 fl (81-99); Mean Platelet Volume 7.7 fl (7.4-10.4); Monocytes # 0.7 K/mm3 (0.1-1.0); Monocytes % 6.7 % (1.7-9.3); Neutrophils # 7.6 K/mm3 (1.8-7.8); Neutrophils % 74.8 % (37.0-80.0); Platelet Count 247 K/mm3 (142-424); White Blood Count 10.2 K/mm3 (4.8-10.8)
[2019-02-03 14:59] LABS: Alanine Aminotransferase 19 U/L (12-78); Albumin Level 3.3 gm/dL (3.4-5.0); Alkaline Phosphatase 88 U/L (46-116); Anion Gap 17.3 mEq/L (5-15); Aspartate Amino Transferase 17 U/L (15-37); Bilirubin,Direct 0.2 mg/dL (0.0-0.2); Bilirubin,Indirect 0.3 mg/dL (0.0-0.9); Bilirubin,Total 0.5 mg/dL (0.2-1.0); Calcium 8.4 mg/dL (8.5-10.1); Carbon Dioxide 22 mmol/L (21.0-32.0); Chloride 97 mmol/L (98-107); Glucose 119 mg/dL (74-106); Sodium 131 mmol/L (136-145)
[2019-02-03 15:02] LABS: Blood Urea Nitrogen 78 mg/dL (7-18)
[2019-02-03 15:59] LABS: Microscopic, Urine URINE MICROSCOPIC (MICROSCOPIC)
[2019-02-03 16:04] LABS: Appearance,Urine CLEAR (Clear); Bilirubin,Urine Negative (Negative); Blood, Urine Negative (Negative); Color,Urine YELLOW (Yellow); Glucose,Urine (UA) Negative (Negative); Ketones,Urine Negative (Negative); Leukocyte Esterase,Urine Negative (Negative); Protein,Urine Negative (Negative); Urobilinogen,Urine 0.2 EU/dl (0.2)
[2019-02-03 16:21] LABS: Bacteria,Urine 1+ /lpf; WBC,Urine Occasional #/hpf (0-3)
[2019-02-03 17:07] LABS: Anion Gap 13.2 mEq/L (5-15); Calcium 7.9 mg/dL (8.5-10.1)
[2019-02-03 18:25] LABS: Digoxin 1.59 ng/mL (0.90-2.00)
[2019-02-04 07:18] LABS: Anion Gap 10.9 mEq/L (5-15); Calcium 8.3 mg/dL (8.5-10.1)
--- NOTE | 2019-02-04 07:21 | Pharmacy Consult Notes ---
[facility] Pharmacy VTE Monitoring - Patient Demographics Admission date: 02/04/19 Report Date: 02/04/19 Time: 07:21 Allergies/Adverse Reactions: Patient Allergies hydrogen peroxide Allergy (Severe, Verified 12/16/18 08:58) Blister amiodarone [AMIODARONE] Allergy (Unknown, Verified 12/16/18 08:58) Difficulty Breathing Height: 1.68 m Weight: 67.16 kg Patient Problems: Current Active Problems (Last Updated 11/11/18 @ 09:58 by Pippa Orozco RN) Fall (Acute) DELILAH (acute kidney injury) (Acute) - VTE Risk Labs: VTE Related Lab Results Hgb 12.9 g/dL (12.2-16.2) 02/03/19 14:10 Hct 39.6 % (37.0-47.0) 02/03/19 14:10 Plt Count 247 K/mm3 (142-424) 02/03/19 14:10 BUN 55 mg/dL (7-18) H 02/04/19 06:59 Creatinine 2.10 mg/dL (0.55-1.02) H D 02/04/19 06:59 Estimated Creat Clear 23 mL/min (50-200) 02/04/19 06:59 Was VTE Risk Assessment Performed: Yes VTE Score: 11 VTE Risk Level: Moderate Risk Clinical Trial Participant: No - Prophylaxis VTE Prophylaxis Ordered?: Yes Types of VTE Prophylaxis: TEDS Knee High
[2019-02-04 07:35] LABS: Basophils # 0.1 K/mm3 (0-0.2); Basophils % 0.7 % (0.1-2.0); Eosinophils # 0.2 K/mm3 (0.0-0.4); Eosinophils % 2.1 % (0.1-12.0); Hematocrit 38.5 % (37.0-47.0); Hemoglobin 12.5 g/dL (12.2-16.2); Lymphocytes # 1.2 K/mm3 (0.7-4.5); Lymphocytes % 12.5 % (10-50); Mean Corpuscular HGB Conc 32.4 g/dL (31.8-35.4); Mean Corpuscular Volume 91.7 fl (81-99); Mean Platelet Volume 7.7 fl (7.4-10.4); Monocytes # 0.7 K/mm3 (0.1-1.0); Monocytes % 7.7 % (1.7-9.3); Neutrophils # 7.2 K/mm3 (1.8-7.8); Neutrophils % 76.9 % (37.0-80.0); Platelet Count 236 K/mm3 (142-424); Red Cell Distribution Width 14.9 % (11.5-17.5); White Blood Count 9.4 K/mm3 (4.8-10.8)
--- NOTE | 2019-02-04 08:32 | History & Physical Report ---
*Admission Date: 02/04/19 <Magdalena Rivero 02/04/19 08:39> *Chief complaint: fall at home, left hip pain <Magdalena Rivero 02/04/19 08:39> *History of present illness: Ms. Bolanos is an 78-year-old female with a history of A. fib with pacemaker/defibrillator, CHF, coronary artery disease, type 2 diabetes, GERD, and hypertension. She states 2 days ago she had a bolus some strawberries that fell on the floor. She bent over to pick them up and got dizzy and fell landing on her left hip. She was able to get herself up and into her recliner. She states her daughter had a physical therapy appointment yesterday and she felt she should come to the emergency room for evaluation of her left hip as it continued to hurt. She did have a pelvic CT which showed a posterior pelvic hematoma but no fracture. Her BUN was 78 and her creatinine was 4.23. Her potassium was elevated and her sodium was low, therefore she was admitted for IV fluids. This a.m., she is feeling slightly better. She was able to eat some of her breakfast. She continues with some left hip pain. She has had good output out of her catheter. <Magdalena Rivero 02/04/19 08:39> [facility] History I have reviewed the patient's past medical history: Yes <Magdalena Rivero 02/04/19 08:39> Medical History: Reports:: Atrial Fibrillation, Congestive Heart Failure, Coronary Artery Disease, Diabetes Mellitus Type 2, Gastroesophageal Reflux Disease(GERD), Hypertension, Internal Pacemaker Denies:: Cancer, MRSA <Magdalena Rivero 02/04/19 08:39> *Have you ever received a pneumonia vaccine?: Yes <Magdalena Rivero 02/04/19 08:39> *Have you received a flu vaccine this season?: Yes <Magdalena Rivero 02/04/19 08:39> Other Medical History: Reports: Arthritis <Magdalena Rivero 02/04/19 08:39> Laterality Cases: Right: Arthroscopy Knee, Bilateral: Carpal Tunnel Release, Other <Magdalena Rivero 02/04/19 08:39> Other Surgeries: Yes: Angioplasty, Appendectomy, Hysterectomy-Total, Pacemaker, Other (Back surgery, Dental implant) <Magdalena Rivero 02/04/19 08:39> Amputation: No <Magdalena Rivero 02/04/19 08:39> Fractures: No <Magdalena Rivero 02/04/19 08:39> - *Social History Smoking Status: Never smoker <Magdalena Rivero 02/04/19 08:39> Alcohol Intake: never <Magdalena Rivero 02/04/19 08:39> Substance Use Type: denies use <Magdalena Rivero 02/04/19 08:39> *Occupational Status:: retired <Magdalena Rivero 02/04/19 08:39> *Travel in the last 8 weeks: None <Magdalena Rivero 02/04/19 08:39> Family Hx:: Cancer, Heart Attack, Tuberculosis <Magdalena Rivero 02/04/19 08:39> Review of Systems - Constitutional Reports weakness, Denies chills, Denies fever(s) <Magdalena Rivero 02/04/19 08:39> - Eyes Denies blurry vision, Denies double vision <Magdalena Rivero 02/04/19 08:39> - ENT Reports nasal congestion, Denies throat swelling <Magdalena Rivero 02/04/19 08:39> - *Cardiovascular Denies chest pain, Denies leg swelling, Denies rapid, pounding, or irregular heartbeat <Magdalena Rivero 02/04/19 08:39> - *Respiratory Reports shortness of breath, Denies cough, Denies wheezing <Magdalena Rivero 02/04/19 08:39> - *Gastrointestinal Denies abdominal pain, Denies loose stools, Denies nausea, Denies vomiting <Magdalena Rivero 02/04/19 08:39> - *Genitourinary Denies difficulty urinating, Denies painful urination <Magdalena Rivero 02/04/19 08:39> - *Musculoskeletal Reports joint pain (left hip) <Magdalena Rivero 02/04/19 08:39> - *Neurologic Reports dizziness, Reports weakness, Denies headache(s) <Magdalena Rivero 02/04/19 08:39> Meds Home Medications Medication Instructions Recorded Confirmed Type aspirin 81 mg tablet,delayed 81 mg PO DAILY tab 04/02/17 02/03/19 History release digoxin 125 mcg (0.125 mg) tablet 125 mcg PO DAILY #30 tab 12/03/17 02/03/19 Rx levothyroxine 75 mcg capsule 75 mcg PO DAILY #90 cap 12/04/17 02/03/19 Rx atorvastatin 80 mg tablet 80 mg PO HS #90 tab 02/13/18 02/03/19 Rx furosemide 80 mg tablet 80 mg PO Q24H #90 tab 10/06/18 02/03/19 Rx buspirone 15 mg tablet 15 mg PO BID tab 11/11/18 02/03/19 History lisinopril 10 mg tablet 10 mg PO DAILY 11/11/18 02/03/19 History pioglitazone 15 mg tablet 15 mg PO DAILY 11/11/18 02/03/19 History diltiazem CD 180 mg 180 mg PO Q24H #30 cap 12/29/18 02/03/19 Rx capsule,extended release 24 hr rivaroxaban 20 mg tablet 20 mg PO DAILY #30 tab 01/28/19 02/03/19 Rx Bisoprolol Fumarate [Bisoprolol 5 mg PO QDAY 02/03/19 02/03/19 History 5mg Tablet] Cetirizine HCl 10 mg PO DAILYP PRN 02/04/19 02/04/19 History Cyclobenzaprine HCl 10 mg PO TIDP PRN 02/04/19 02/04/19 History [Cyclobenzaprine 10mg Tab] Spironolactone [Spironolactone 25 mg PO DAILY 02/04/19 02/04/19 History 25mg Tablet] <Brent Bonilla - 02/04/19 09:37> Allergies Allergy/AdvReac Type Severity Reaction Status Date / Time hydrogen peroxide Allergy Severe Blister Verified 12/16/18 08:58 amiodarone [AMIODARONE] Allergy Unknown Difficulty Verified 12/16/18 08:58 Breathing <Brent Bonilla - 02/04/19 09:37> Exam Vital signs and Labs for Last 24 Hours: Temp Pulse Resp BP Pulse Ox 98.0 F 68 17 96/54 L 96 02/04/19 08:00 02/04/19 09:23 02/04/19 08:00 02/04/19 08:00 02/04/19 08:00 Laboratory Results - last 24 hr 02/03/19 14:10: WBC 10.2, RBC 4.30, Hgb 12.9, Hct 39.6, MCV 92.1, MCH 29.9, MCHC 32.5, RDW 15.0, Plt Count 247, MPV 7.7, Neut % (Auto) 74.8, Lymph % (Auto) 16.3, [place] % (Auto) 6.7, Eos % (Auto) 1.4, Baso % (Auto) 0.8, Neut # (Auto) 7.6, Lymph # (Auto) 1.7, [place] # (Auto) 0.7, Eos # (Auto) 0.2, Baso # (Auto) 0.1 02/03/19 14:10: Sodium 131 L, Potassium 5.3 H, Chloride 97 L, Carbon Dioxide 22, Anion Gap 17.3 H, BUN 78 H, Creatinine 4.23 H, Estimated Creat Clear 11, Estimated GFR 10 L*, Est GFR ( Amer) 12 L*, Glucose 119 H, Calcium 8.4 L, Total Bilirubin 0.5, Direct Bilirubin 0.2, Indirect Bilirubin 0.3, AST 17, ALT 19, Alkaline Phosphatase 88, Troponin I < 0.02, Total Protein 7.0, Albumin 3.3 L 02/03/19 15:54: Urine Color Yellow, Urine Appearance Clear, Urine pH 6.0, Ur Specific Jol[place] 1.010, Urine Protein Negative, Urine Glucose (UA) Negative, Urine Ketones Negative, Urine Blood Negative, Urine Nitrate Negative, Urine Bilirubin Negative, Urine Urobilinogen 0.2, Ur Leukocyte Esterase Negative, Urine WBC Occasional, Ur Squamous Epith Cells 3-5, Urine Bacteria 1+ 02/03/19 16:40: Total Creatine Kinase 47, Digoxin 1.59 02/03/19 16:50: Sodium 135 L, Potassium 5.2 H, Chloride 103, Carbon Dioxide 24, Anion Gap 13.2, BUN 69 H, Creatinine 3.38 H D, Estimated Creat Clear 14, Estimated GFR 13 L*, Est GFR ( Amer) 16 L* D, Glucose 110 H, Calcium 7.9 L 02/04/19 06:59: WBC 9.4, RBC 4.20, Hgb 12.5, Hct 38.5, MCV 91.7, MCH 29.7, MCHC 32.4, RDW 14.9, Plt Count 236, MPV 7.7, Neut % (Auto) 76.9, Lymph % (Auto) 12.5, [place] % (Auto) 7.7, Eos % (Auto) 2.1, Baso % (Auto) 0.7, Neut # (Auto) 7.2, Lymp h # (Auto) 1.2, [place] # (Auto) 0.7, Eos # (Auto) 0.2, Baso # (Auto) 0.1 02/04/19 06:59: Sodium 140, Potassium 4.9, Chloride 108 H, Carbon Dioxide 26, A nion Gap 10.9, BUN 55 H, Creatinine 2.10 H D, Estimated Creat Clear 23, Estimated GFR 23 L, Est GFR ( Amer) 27 L D, Glucose 104, Calcium 8.3 L <IreneBrent lambert - 02/04/19 09:37> Temp Pulse Resp BP Pulse Ox 97.6 F 73 17 98/55 L 92 L 02/04/19 04:00 02/04/19 04:00 02/04/19 04:00 02/04/19 04:00 02/04/19 04:00 Laboratory Results - last 24 hr 02/03/19 14:10: WBC 10.2, RBC 4.30, Hgb 12.9, Hct 39.6, MCV 92.1, MCH 29.9, MCHC 32.5, RDW 15.0, Plt Count 247, MPV 7.7, Neut % (Auto) 74.8, Lymph % (Auto) 16.3, [place] % (Auto) 6.7, Eos % (Auto) 1.4, Baso % (Auto) 0.8, Neut # (Auto) 7.6, Lymph # (Auto) 1.7, [place] # (Auto) 0.7, Eos # (Auto) 0.2, Baso # (Auto) 0.1 02/03/19 14:10: Sodium 131 L, Potassium 5.3 H, Chloride 97 L, Carbon Dioxide 22, Anion Gap 17.3 H, BUN 78 H, Creatinine 4.23 H, Estimated Creat Clear 11, Estimated GFR 10 L*, Est GFR ( Amer) 12 L*, Glucose 119 H, Calcium 8.4 L, Total Bilirubin 0.5, Direct Bilirubin 0.2, Indirect Bilirubin 0.3, AST 17, ALT 19, Alkaline Phosphatase 88, Troponin I < 0.02, Total Protein 7.0, Albumin 3.3 L 02/03/19 15:54: Urine Color Yellow, Urine Appearance Clear, Urine pH 6.0, Ur Specific [place] 1.010, Urine Protein Negative, Urine Glucose (UA) Negative, Urine Ketones Negative, Urine Blood Negative, Urine Nitrate Negative, Urine Bilirubin Negative, Urine Urobilinogen 0.2, Ur Leukocyte Esterase Negative, Urine WBC Occasional, Ur Squamous Epith Cells 3-5, Urine Bacteria 1+ 02/03/19 16:40: Total Creatine Kinase 47, Digoxin 1.59 02/03/19 16:50: Sodium 135 L, Potassium 5.2 H, Chloride 103, Carbon Dioxide 24, Anion Gap 13.2, BUN 69 H, Creatinine 3.38 H D, Estimated Creat Clear 14, Estimated GFR 13 L*, Est GFR ( Amer) 16 L* D, Glucose 110 H, Calcium 7.9 L 02/04/19 06:59: WBC 9.4, RBC 4.20, Hgb 12.5, Hct 38.5, MCV 91.7, MCH 29.7, MCHC 32.4, RDW 14.9, Plt Count 236, MPV 7.7, Neut % (Auto) 76.9, Lymph % (Auto) 12.5, [place] % (Auto) 7.7, Eos % (Auto) 2.1, Baso % (Auto) 0.7, Neut # (Auto) 7.2, Lymph # (Auto) 1.2, [place] # (Auto) 0.7, Eos # (Auto) 0.2, Baso # (Auto) 0.1 02/04/19 06:59: Sodium 140, Potassium 4.9, Chloride 108 H, Carbon Dioxide 26, Anion Gap 10.9, BUN 55 H, Creatinine 2.10 H D, Estimated Creat Clear 23, Estimated GFR 23 L, Est GFR ( Amer) 27 L D, Glucose 104, Calcium 8.3 L <Magdalena Rivero - 02/04/19 08:39> I & O for Last 24 hours: Intake & Output 02/01/19 02/02/19 02/03/19 02/04/19 11:59 11:59 11:59 11:59 Intake Total 4190 / 4190 Output Total 4300 / 4300 Balance -110 / -110 Weight 148 lb 1 oz <Brent Bonilla - 02/04/19 09:37> Intake & Output 02/01/19 02/02/19 02/03/19 02/04/19 11:59 11:59 11:59 11:59 Intake Total 1974 Output Total 4300 / 4300 Balance -2325 / -2325 Weight 148 lb 1 oz <Magdalena Rivero - 02/04/19 08:39> - Constitutional no acute distress <Magdalena Rivero 02/04/19 08:39> - *Routine HEENT Exam Head: Present: normocephalic <Magdalena Rivero 02/04/19 08:39> Eye: Present: EOMI, PERRL <TojayMagdalena 02/04/19 08:39> ENT: Present: mucous membranes dry <Magdalena Rivero 02/04/19 08:39> - *Routine Neck Exam Present: supple. Absent: lymphadenopathy <Magdalena Rivero 02/04/19 08:39> - *Routine Respiratory Exam Present: CTA bilaterally <Magdalena Rivero 02/04/19 08:39> - *Routine Cardiovascular Exam Present: RRR <Magdalena Rivero 02/04/19 08:39> - *Routine Abdominal Exam Present: soft, normoactive bowel sounds. Absent: tenderness <Magdalena Rivero 02/04/19 08:39> - *Routine Extremities Exam Absent: cyanosis, clubbing, edema <Magdalena Rivero 02/04/19 08:39> Comments: left leg with ttp along the lateral side of the hip, mild ecchymosis <Magdalena Rivero 02/04/19 08:39> - *Routine Skin Exam Present: warm. Absent: rash <Magdalena Rivero 02/04/19 08:39> - *Routine Neurological Exam Present: alert, oriented X3 <TojayMagdalena 02/04/19 08:39> H&P: Result - Impressions CXR - nothing acute Head CT - nothing acute Lumbar Spine CT 1. Left lower flank and upper posterior pelvic hematoma 2. No acute fracture. 3. Degenerative changes of the hips Pelvic CT 1. Left lower flank and upper posterior pelvic hematoma 2. No acute fracture. 3. Degenerative changes of the hips <Magdalena Rivero - 02/04/19 08:39> Assessment and Plan (1) Left hip pain Current visit: Yes Status: Acute Category: Medical Code(s): M25.552 - Pain in left hip (2) DELILAH (acute kidney injury) Current visit: Yes Status: Acute Category: Medical Code(s): N17.9 - Acute kidney failure, unspecified (3) Fall Current visit: Yes Status: Acute Category: Medical Code(s): W19.XXXA - Unspecified fall, initial encounter (4) Arthritis Current visit: No Status: Chronic Category: Medical Code(s): M19.90 - Unspecified osteoarthritis, unspecified site (5) Chronic diastolic heart failure Current visit: No Status: Chronic Category: Medical Code(s): I50.32 - Chronic diastolic (congestive) heart failure (6) Anticoagulant long-term use Current visit: No Status: Chronic Category: Medical Code(s): Z79.01 - 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 transplanted heart: [place] heart Associated angina: without angina Qualified Code(s): I25.10 - Atherosclerotic heart disease of [place] coronary artery without angina pectoris Category: Medical Code(s): I25.10 - Atherosclerotic heart disease of [place] coronary artery without angina pectoris (9) Cardiac pacemaker in situ Current visit: No Status: Chronic Category: Medical Code(s): Z95.0 - Presence of cardiac pacemaker (10) Chronic kidney disease, stage 3 Current visit: No Status: Chronic Category: Medical Code(s): N18.3 - Chronic kidney disease, stage 3 (moderate) (11) Hyperlipemia Current visit: No Status: Chronic Qualifiers: Hyperlipidemia type: other hyperlipidemia Category: Medical Code(s): E78.5 - Hyperlipidemia, unspecified (12) Hypertensive heart disease Current visit: No Status: Chronic Qualifiers: Heart failure presence: with heart failure Heart failure type: diastolic Heart failure chronicity: chronic Qualified Code(s): I11.0 - Hypertensive heart disease with heart failure Category: Medical Code(s): I11.9 - Hypertensive heart disease without heart failure <Magdalena Rivero - 02/04/19 08:29> (1) Near syncope Current visit: Yes Status: Acute Category: Medical Code(s): R55 - Syncope and collapse (2) Fall Current visit: Yes Status: Acute Category: Medical Code(s): W19.XXXA - Unspecified fall, initial encounter (3) Contusion of left hip Current visit: Yes Status: Acute Category: Medical Code(s): S70.02XA - Contusion of left hip, initial encounter (4) Hematoma Current visit: Yes Status: Acute Category: Medical Code(s): T14.8XXA - Other injury of unspecified body region, initial encounter (5) Acute on chronic renal failure Current visit: Yes Status: Acute Category: Medical Code(s): N17.9 - Acute kidney failure, unspecified; N18.9 - Chronic kidney disease, unspecified (6) Prerenal azotemia Current visit: Yes Status: Acute Category: Medical Code(s): R79.89 - Other specified abnormal findings of blood chemistry (7) Arthritis Current visit: No Status: Chronic Category: Medical Code(s): M19.90 - Unspecified osteoarthritis, unspecified site (8) Chronic diastolic heart failure Current visit: No Status: Chronic Category: Medical Code(s): I50.32 - Clarification Operator mihai diastolic (congestive) heart failure (9) Anticoagulant long-term use Current visit: No Status: Chronic Category: Medical Code(s): Z79.01 - extermination inspector (current) use of anticoagulants (10) Atrial fibrillation Current visit: No Status: Chronic Qualifiers: Atrial fibrillation type: chronic Category: Medical Code(s): I48.91 - Unspecified atrial fibrillation (11) CAD (coronary artery disease) Current visit: No Status: Chronic Qualifiers: Coronary Disease-Associated Artery/Lesion type: [place] artery [place] vs. transplanted heart: [place] heart Associated angina: without angina Qualified Code(s): I25.10 - Atherosclerotic heart disease of [place] coronary artery without angina pectoris Category: Medical Code(s): I25.10 - Atherosclerotic heart disease of [place] coronary artery without angina pectoris (12) Cardiac pacemaker in situ Current visit: No Status: Chronic Category: Medical Code(s): Z95.0 - Presence of cardiac pacemaker (13) Chronic kidney disease, stage 3 Current visit: No Status: Chronic Category: Medical Code(s): N18.3 - Chronic kidney disease, stage 3 (moderate) (14) Hyperlipemia Current visit: No Status: Chronic Qualifiers: Hyperlipidemia type: other hyperlipidemia Category: Medical Code(s): E78.5 - Hyperlipidemia, unspecified (15) Hypertensive heart disease Current visit: No Status: Chronic Qualifiers: Heart failure presence: with heart failure Heart failure type: diastolic Heart failure chronicity: chronic Qualified Code(s): I11.0 - Hypertensive heart disease with heart failure Category: Medical Code(s): I11.9 - Hypertensive heart disease without heart failure (16) Diastolic heart failure Current visit: No Status: Chronic Qualifiers: Heart failure chronicity: chronic Qualified Code(s): I50.32 - Chronic diastolic (congestive) heart failure Category: Medical Code(s): I50.30 - Unspecified diastolic (congestive) heart failure <Brent Bonilla - 02/04/19 09:37> - Assessment and plan all Dx Assessment and Plan for all problems:: Patient seen and examined this morning. She feels better and is comfortable. Denies feeling dizzy. Renal function has improved with hydration. Will continue IV fluids but decrease IV fluid rate. Cardiology consult for recommendations on adjusting diuretics upon discharge. <Brent Bonilla - 02/04/19 09:37> Renal function has improved with hydration. Potassium and sodium have normalized. We will continue IV fluids and discuss further care with Dr. Bonilla. <Magdalena Rivero - 02/04/19 08:39>
--- NOTE | 2019-02-04 09:34 | Consult Report ---
History of Present Illness Consult date: 02/04/19 Requesting physician: Brent Bonilla Consult reason: hypotension Chief complaint: dizziness Additional Medical History:: 1. Coronary artery disease 2. Atrial fibrillation 3. Chronic diastolic congestive heart failure 4. Hypertension 5. Hyperlipidemia 6. Diabetes mellitus 7. Permanent pacemaker in place 8. Long-term anticoagulation 9. Chronic kidney disease Echocardiogram from November 2018 shows: 1. Moderate biatrial enlargement, normal left ventricular size, mild concentric left ventricular hypertrophy, visually estimated ejection fraction 50%, there is abnormal septal motion, diastolic parameters are inconclusive. Endocardial surfaces are poorly visualized. 2. Moderately enlarged right ventricle with normal contractility. 3. Mild mitral and tricuspid regurgitation, calculated right ventricular systolic pressure is 73 mmHg consistent with severely elevated right ventricular systolic pressure. 4. No significant pericardial effusion noted, inferior vena cava is not well visualized. Myoview from November 2018 shows: 1. The EKG portion of the Lexiscan Myoview is nondiagnostic. 2. No obvious scintigraphic evidence of reversible ischemia seen, computer derived ejection fraction 50% with no regional wall motion abnormality, right ventricle is mildly enlarged with normal contractility. 3. Normal Lexiscan perfusion imaging. History of present illness: This is an 78-year-old white female who presented to the emergency department with complaints of dizziness. The patient states that 2 days ago she was sitting at the kitchen table. She dropped a drink and bent over to clean it up. When she bent over the patient states that she became significantly dizzy and fell injuring her left hip. The patient states that she has had left hip pain since that time. She denies any syncope or loss of consciousness. She states that her left hip was very painful swollen and bruised. The patient states that yesterday she became progressively worse with her dizziness and just did not feel well. She states that she felt very lightheaded and felt as if she could pass out but never passed out. She states that because of the significant dizziness and pain in her left hip she decided to come to the emergency department. Upon arrival at the emergency department, the patient was found to be hypotensive and in acute renal failure. She did have a hematoma noted to her left hip as well. The patient has received IV fluids and her creatinine has gone from 4.23 down to 2.10. She still remains a little hypotensive this morning as well but all of her diuretics and lisinopril have been discontinued. The patient does have atrial fibrillation with a history of atrial fibrillation with RVR. She is on long-term anticoagulation. The patient also has a history of coronary artery disease as well as chronic diastolic congestive heart failure. She denies any chest pain or pressure. She denies any shortness of breath or edema. She denies any fever, chills, nausea, diarrhea, PND or orthopnea. [facility] History I have reviewed the patient's past medical history: Yes Medical History: Reports:: Atherosclerotic Heart Disease, Atrial Fibrillation, Congestive Heart Failure (Chronic diastolic congestive heart failure), Coronary Artery Disease, Diabetes Mellitus Type 2, Gastroesophageal Reflux Disease(GERD), Hyperlipidemia, Hypertension, Internal Pacemaker, Palpitations Denies:: Cancer, MRSA *Have you ever received a pneumonia vaccine?: Yes *Have you received a flu vaccine this season?: Yes Other Medical History: Reports: Arthritis Laterality Cases: Right: Arthroscopy Knee, Bilateral: Carpal Tunnel Release, Other Other Surgeries: Yes: Angioplasty, Appendectomy, Hysterectomy-Total, Hysterectomy-Partial, Pacemaker, Other (Back surgery, Dental implant) Amputation: No Fractures: No - *Social History Smoking Status: Never smoker Alcohol Intake: never Substance Use Type: denies use *Occupational Status:: retired *Travel in the last 8 weeks: None Family Hx:: Cancer, Heart Attack, Tuberculosis Meds Home Medications Medication Instructions Recorded Confirmed Type aspirin 81 mg tablet,delayed 81 mg PO DAILY tab 04/02/17 02/03/19 History release digoxin 125 mcg (0.125 mg) tablet 125 mcg PO DAILY #30 tab 12/03/17 02/03/19 Rx levothyroxine 75 mcg capsule 75 mcg PO DAILY #90 cap 12/04/17 02/03/19 Rx atorvastatin 80 mg tablet 80 mg PO HS #90 tab 02/13/18 02/03/19 Rx furosemide 80 mg tablet 80 mg PO Q24H #90 tab 10/06/18 02/03/19 Rx buspirone 15 mg tablet 15 mg PO BID tab 11/11/18 02/03/19 History lisinopril 10 mg tablet 10 mg PO DAILY 11/11/18 02/03/19 History pioglitazone 15 mg tablet 15 mg PO DAILY 11/11/18 02/03/19 History diltiazem CD 180 mg 180 mg PO Q24H #30 cap 12/29/18 02/03/19 Rx capsule,extended release 24 hr rivaroxaban 20 mg tablet 20 mg PO DAILY #30 tab 01/28/19 02/03/19 Rx Bisoprolol Fumarate [Bisoprolol 5 mg PO DAILY 02/03/19 02/04/19 History 5mg Tablet] Cetirizine HCl 10 mg PO DAILYP PRN 02/04/19 02/04/19 History Cyclobenzaprine HCl 10 mg PO TIDP PRN 02/04/19 02/04/19 History [Cyclobenzaprine 10mg Tab] Spironolactone [Spironolactone 25 mg PO DAILY 02/04/19 02/04/19 History 25mg Tablet] Allergies Allergy/AdvReac Type Severity Reaction Status Date / Time hydrogen peroxide Allergy Severe Blister Verified 12/16/18 08:58 amiodarone [AMIODARONE] Allergy Unknown Difficulty Verified 12/16/18 08:58 Breathing Review of Systems - Review of Systems Review of systems:: pertinent systems reviewed and negative unless documented below - Constitutional Reports fatigue, Reports weakness - *Neurologic Reports dizziness, Reports weakness, Denies headache(s) Exam Vital signs and Labs for Last 24 Hours: Temp Pulse Resp BP Pulse Ox 98.0 F 68 17 96/54 L 96 02/04/19 08:00 02/04/19 09:23 02/04/19 08:00 02/04/19 08:00 02/04/19 08:00 Laboratory Results - last 24 hr 02/03/19 14:10: WBC 10.2, RBC 4.30, Hgb 12.9, Hct 39.6, MCV 92.1, MCH 29.9, MCHC 32.5, RDW 15.0, Plt Count 247, MPV 7.7, Neut % (Auto) 74.8, Lymph % (Auto) 16.3, [place] % (Auto) 6.7, Eos % (Auto) 1.4, Baso % (Auto) 0.8, Neut # (Auto) 7.6, Lymph # (Auto) 1.7, [place] # (Auto) 0.7, Eos # (Auto) 0.2, Baso # (Auto) 0.1 02/03/19 14:10: Sodium 131 L, Potassium 5.3 H, Chloride 97 L, Carbon Dioxide 22, Anion Gap 17.3 H, BUN 78 H, Creatinine 4.23 H, Estimated Creat Clear 11, Estimated GFR 10 L*, Est GFR ( Amer) 12 L*, Glucose 119 H, Calcium 8.4 L, Total Bilirubin 0.5, Direct Bilirubin 0.2, Indirect Bilirubin 0.3, AST 17, ALT 19, Alkaline Phosphatase 88, Troponin I < 0.02, Total Protein 7.0, Albumin 3.3 L 02/03/19 15:54: Urine Color Yellow, Urine Appearance Clear, Urine pH 6.0, Ur Specific [place] 1.010, Urine Protein Negative, Urine Glucose (UA) Negative, Urine Ketones Negative, Urine Blood Negative, Urine Nitrate Negative, Urine Bilirubin Negative, Urine Urobilinogen 0.2, Ur Leukocyte Esterase Negative, Urine WBC Occasional, Ur Squamous Epith Cells 3-5, Urine Bacteria 1+ 02/03/19 16:40: Total Creatine Kinase 47, Digoxin 1.59 02/03/19 16:50: Sodium 135 L, Potassium 5.2 H, Chloride 103, Carbon Dioxide 24, Anion Gap 13.2, BUN 69 H, Creatinine 3.38 H D, Estimated Creat Clear 14, Estimated GFR 13 L*, Est GFR ( Amer) 16 L* D, Glucose 110 H, Calcium 7.9 L 02/04/19 06:59: WBC 9.4, RBC 4.20, Hgb 12.5, Hct 38.5, MCV 91.7, MCH 29.7, MCHC 32.4, RDW 14.9, Plt Count 236, MPV 7.7, Neut % (Auto) 76.9, Lymph % (Auto) 12.5, [place] % (Auto) 7.7, Eos % (Auto) 2.1, Baso % (Auto) 0.7, Neut # (Auto) 7.2, Lymph # (Auto) 1.2, [place] # (Auto) 0.7, Eos # (Auto) 0.2, Baso # (Auto) 0.1 02/04/19 06:59: Sodium 140, Potassium 4.9, Chloride 108 H, Carbon Dioxide 26, Anion Gap 10.9, BUN 55 H, Creatinine 2.10 H D, Estimated Creat Clear 23, Estimated GFR 23 L, Est GFR ( Amer) 27 L D, Glucose 104, Calcium 8.3 L I & O for Last 24 hours: Intake & Output 02/01/19 02/02/19 02/03/19 02/04/19 23:59 23:59 23:59 23:59 Intake Total 4190 / 4190 Output Total 2400 / 2400 1900 / 1900 Balance -2400 / -2400 2290 / 2290 Weight 148 lb 1 oz 148 lb 1 oz Radiology Reports for the Last 24 Hours: Chest x-ray shows No change with no acute finding. CT of the head shows no intracranial abnormalities. Lumbar CT shows: 1. No acute fracture. 2. Multilevel lumbar spondylosis with facet and ligamentum hypertrophy and bulging disc. Please see above for detailed description at each level. There are varying degrees of foraminal lateral recess narrowing and canal stenosis. Pelvic CT shows: 1. Left lower flank and upper posterior pelvic hematoma 2. No acute fracture. 3. Degenerative changes of the hips Narrative: Her EKG is AV pacing with a rate of 72. - Constitutional no acute distress, average body habitus - *Routine HEENT Exam Head: Present: normocephalic, atraumatic Eye: Present: EOMI, PERRL ENT: Present: mucous membranes moist - *Routine Neck Exam Present: supple, full ROM, normal carotid upstroke. Absent: JVD, carotid bruit, lymphadenopathy - *Routine Respiratory Exam Present: CTA bilaterally - *Routine Cardiovascular Exam Present: RRR, Normal S1, Normal S2. Absent: murmur, gallop - *Routine Abdominal Exam Present: soft, normoactive bowel sounds. Absent: tenderness, distended - *Routine Extremities Exam Present: full ROM, pulses intact, normal capillary refill. Absent: cyanosis, clubbing, edema - *Routine Skin Exam Present: intact, warm. Absent: erythema, rash - *Routine Neurological Exam Present: alert, oriented X3, CN II-XII intact. Absent: sensory deficit, motor deficit - Routine Psychiatric Exam Present: normal affect, normal thought process - Detailed Eye Exam Eyelids: Left normal inspection Assessment and Plan (1) Left hip pain Current visit: Yes Status: Acute Category: Medical Code(s): M25.552 - Pain in left hip (2) DELILAH (acute kidney injury) Current visit: Yes Status: Acute Category: Medical Code(s): N17.9 - Acute kidney failure, unspecified (3) Fall Current visit: Yes Status: Acute Category: Medical Code(s): W19.XXXA - Unspecified fall, initial encounter (4) Arthritis Current visit: No Status: Chronic Category: Medical Code(s): M19.90 - Unspecified osteoarthritis, unspecified site (5) Chronic diastolic heart failure Current visit: No Status: Chronic Category: Medical Code(s): I50.32 - Chronic diastolic (congestive) heart failure (6) Anticoagulant long-term use Current visit: No Status: Chronic Category: Medical Code(s): Z79.01 - long-term (current) use of anticoagulants (7) Atrial fibrillation Current visit: No Status: Chronic Qualifiers: Category: Medical Code(s): I48.91 - Unspecified atrial fibrillation (8) CAD (coronary artery disease) Current visit: No Status: Chronic Qualifiers: Qualified Code(s): I25.10 - Atherosclerotic heart disease of [place] coronary artery without angina pectoris Category: Medical Code(s): I25.10 - Atherosclerotic heart disease of [place] coronary artery without angina pectoris (9) Cardiac pacemaker in situ Current visit: No Status: Chronic Category: Medical Code(s): Z95.0 - Presence of cardiac pacemaker (10) Chronic kidney disease, stage 3 Current visit: No Status: Chronic Category: Medical Code(s): N18.3 - Chronic kidney disease, stage 3 (moderate) (11) Hyperlipemia Current visit: No Status: Chronic Qualifiers: Qualified Code(s): E78.49 - Other hyperlipidemia; E78.4 - Other hyperlipidemia Category: Medical Code(s): E78.5 - Hyperlipidemia, unspecified (12) Hypertensive heart disease Current visit: No Status: Chronic Qualifiers: Qualified Code(s): I11.0 - Hypertensive heart disease with heart failure; I50.32 - Chronic diastolic (congestive) heart failure Category: Medical Code(s): I11.9 - Hypertensive heart disease without heart failure - Assessment and plan all Dx Assessment and Plan for all problems:: Plan: 1. The patient was admitted to the hospital secondary to dizziness, a fall and hypotension as well as acute renal failure. The patient states that she was trying to pick something up when she got significantly dizzy and fell. She injured her left hip and the next day the left hip pain worsened and she was significantly dizzy. The patient decided to come into the emergency department. She was found to be hypotensive and in acute renal failure. The patient has been getting IV fluids and her creatinine has gone from 4.23 down t to 2.10. Be mindful of the fluid load given her history of chronic diastolic congestive heart failure, want to avoid pulmonary edema. 2. We will stop her Lasix and Aldactone given her acute renal failure. She was significantly dehydrated likely from her diuretics. However she does have a history of chronic diastolic congestive heart failure as well as pulmonary hypertension. If the patient does become short of breath, consider starting back low-dose diuretics. 3. Stop her lisinopril secondary to her acute renal failure. 4. The patient does have a history of atrial fibrillation. She has had multiple episodes of atrial fibrillation with RVR. We will continue her bisoprolol at current dose. We will decrease her diltiazem CD down to 120 mg daily for rate control. She is on Xarelto for anticoagulation. 5. The patient does have a permanent pacemaker in place. We will have this downloaded today. 6. The patient does have a history of coronary artery disease. She denies any chest pain or pressure. She had a stress test in November of this year that showed no evidence of ischemia. No plans for invasive testing at this time. 7. Her blood pressure is marginal. We will continue to follow. 8. Her LDL goal is less than 55. 9. The patient does have a history of diabetes. She will need aggressive control of her diabetes. Will defer this to the primary care provider. 10. Place the patient on telemetry. 11. The patient does have chronic kidney disease. We will continue to follow her renal function. 12. Further recommendations will be made pending the patient's response to treatment. Thank you for the opportunity to help participate in the care of this patient.
[2019-02-05 07:23] LABS: Anion Gap 8.1 mEq/L (5-15); Calcium 8.3 mg/dL (8.5-10.1)
--- NOTE | 2019-02-05 08:29 | Progress Note ---
<Magdalena Rivero - Last Filed: 02/05/19 08:26> Internal Medicine - PN: Subj *Date: 02/05/19 *Time: 08:26 Interval history: Patient states she is feeling a little bit better this morning. She still has some significant left hip pain and bruising. She states if she walks or lays on her left side she has hip pain. She slept better last night and has been eating and drinking well. Exam Vital signs and Labs for Last 24 Hours: Temp Pulse Resp BP Pulse Ox 98.3 F 84 18 110/59 L 99 02/05/19 04:00 02/05/19 08:12 02/05/19 04:00 02/05/19 04:00 02/05/19 04:00 Laboratory Results - last 24 hr 02/05/19 06:48: Sodium 138, Potassium 5.1, Chloride 108 H, Carbon Dioxide 27, Anion Gap 8.1, BUN 37 H D, Creatinine 1.35 H D, Estimated Creat Clear 35, Estimated GFR 38 L, Est GFR ( Amer) 46 L D, Glucose 103, Calcium 8.3 L I & O for Last 24 hours: Intake & Output 02/02/19 02/03/19 02/04/19 02/05/19 11:59 11:59 11:59 11:59 Intake Total 4190 / 4190 2655 / 2655 Output Total 4900 / 4900 575 / 575 Balance -710 / -710 2080 / 2080 Weight 148 lb 1 oz 149 lb 2 oz - Constitutional no acute distress - *Routine Respiratory Exam Present: CTA bilaterally - *Routine Cardiovascular Exam Present: RRR - *Routine Abdominal Exam Present: soft, normoactive bowel sounds. Absent: tenderness - *Routine Extremities Exam Absent: cyanosis, clubbing, edema Comments: ecchymosis along the left lateral hip and up into the left pelvic region - *Routine Skin Exam Present: warm. Absent: rash - *Routine Neurological Exam Present: alert, oriented X3 Assessment and Plan (1) Near syncope Current visit: Yes Status: Acute Category: Medical Code(s): R55 - Syncope and collapse (2) Fall Current visit: Yes Status: Acute Category: Medical Code(s): W19.XXXA - Unspecified fall, initial encounter (3) Contusion of left hip Current visit: Yes Status: Acute Category: Medical Code(s): S70.02XA - Contusion of left hip, initial encounter (4) Hematoma Current visit: Yes Status: Acute Category: Medical Code(s): T14.8XXA - Other injury of unspecified body region, initial encounter (5) Acute on chronic renal failure Current visit: Yes Status: Acute Category: Medical Code(s): N17.9 - Acute kidney failure, unspecified; N18.9 - Chronic kidney disease, unspecified (6) Prerenal azotemia Current visit: Yes Status: Acute Category: Medical Code(s): R79.89 - Other specified abnormal findings of blood chemistry (7) Arthritis Current visit: No Status: Chronic Category: Medical Code(s): M19.90 - Unspecified osteoarthritis, unspecified site (8) Chronic diastolic heart failure Current visit: No Status: Chronic Category: Medical Code(s): I50.32 - Chronic diastolic (congestive) heart failure (9) Anticoagulant long-term use Current visit: No Status: Chronic Category: Medical Code(s): Z79.01 - senior care (current) use of anticoagulants (10) Atrial fibrillation Current visit: No Status: Chronic Qualifiers: Atrial fibrillation type: chronic Category: Medical Code(s): I48.91 - Unspecified atrial fibrillation (11) CAD (coronary artery disease) Current visit: No Status: Chronic Qualifiers: Coronary Disease-Associated Artery/Lesion type: [place] artery [place] vs. transplanted heart: [place] heart Associated angina: without angina Qualified Code(s): I25.10 - Atherosclerotic heart disease of [place] coronary artery without angina pectoris Category: Medical Code(s): I25.10 - Atherosclerotic heart disease of [place] coronary artery without angina pectoris (12) Cardiac pacemaker in situ Current visit: No Status: Chronic Category: Medical Code(s): Z95.0 - Presence of cardiac pacemaker (13) Chronic kidney disease, stage 3 Current visit: No Status: Chronic Category: Medical Code(s): N18.3 - Chronic kidney disease, stage 3 (moderate) (14) Hyperlipemia Current visit: No Status: Chronic Qualifiers: Hyperlipidemia type: other hyperlipidemia Category: Medical Code(s): E78.5 - Hyperlipidemia, unspecified (15) Hypertensive heart disease Current visit: No Status: Chronic Qualifiers: Heart failure presence: with heart failure Heart failure type: diastolic Heart failure chronicity: chronic Qualified Code(s): I11.0 - Hypertensive heart disease with heart failure Category: Medical Code(s): I11.9 - Hypertensive heart disease without heart failure (16) Diastolic heart failure Current visit: No Status: Chronic Qualifiers: Heart failure chronicity: chronic Qualified Code(s): I50.32 - Chronic diastolic (congestive) heart failure Category: Medical Code(s): I50.30 - Unspecified diastolic (congestive) heart failure - Assessment and plan all Dx Assessment and Plan for all problems:: Patient's renal function has improved. She can likely be discharged home today but will await cardiology's recommendations for medication. <Brent Bonilla - Last Filed: 02/05/19 14:03> Internal Medicine - PN: Subj *Date: 02/05/19 *Time: 14:03 Exam Vital signs and Labs for Last 24 Hours: Temp Pulse Resp BP Pulse Ox 98.3 F 80 18 111/70 95 02/05/19 08:00 02/05/19 12:00 02/05/19 08:00 02/05/19 08:00 02/05/19 08:00 Laboratory Results - last 24 hr 02/05/19 06:48: Sodium 138, Potassium 5.1, Chloride 108 H, Carbon Dioxide 27, Anion Gap 8.1, BUN 37 H D, Creatinine 1.35 H D, Estimated Creat Clear 35, Estimated GFR 38 L, Est GFR ( Amer) 46 L D, Glucose 103, Calcium 8.3 L I & O for Last 24 hours: Intake & Output 02/03/19 02/04/19 02/05/19 02/06/19 11:59 11:59 11:59 11:59 Intake Total 4190 / 4190 2655 / 2655 Output Total 4900 / 4900 575 / 575 Balance -710 / -710 0 / 208 Weight 148 lb 1 oz 149 lb 2 oz Assessment and Plan (1) Near syncope Current visit: Yes Status: Acute Category: Medical Code(s): R55 - Syncope and collapse (2) Fall Current visit: Yes Status: Acute Category: Medical Code(s): W19.XXXA - Unspecified fall, initial encounter (3) Contusion of left hip Current visit: Yes Status: Acute Category: Medical Code(s): S70.02XA - Contusion of left hip, initial encounter (4) Hematoma Current visit: Yes Status: Acute Category: Medical Code(s): T14.8XXA - Other injury of unspecified body region, initial encounter (5) Acute on chronic renal failure Current visit: Yes Status: Acute Category: Medical Code(s): N17.9 - Acute kidney failure, unspecified; N18.9 - Chronic kidney disease, unspecified (6) Prerenal azotemia Current visit: Yes Status: Acute Category: Medical Code(s): R79.89 - Other specified abnormal findings of blood chemistry (7) Arthritis Current visit: No Status: Chronic Category: Medical Code(s): M19.90 - Unspecified osteoarthritis, unspecified site (8) Chronic diastolic heart failure Current visit: No Status: Chronic Category: Medical Code(s): I50.32 - Chronic diastolic (congestive) heart failure (9) Anticoagulant long-term use Current visit: No Status: Chronic Category: Medical Code(s): Z79.01 - senior care (current) use of anticoagulants (10) Atrial fibrillation Current visit: No Status: Chronic Qualifiers: Atrial fibrillation type: chronic Category: Medical Code(s): I48.91 - Unspecified atrial fibrillation (11) CAD (coronary artery disease) Current visit: No Status: Chronic Qualifiers: Coronary Disease-Associated Artery/Lesion type: [place] artery [place] vs. transplanted heart: [place] heart Associated angina: without angina Qualified Code(s): I25.10 - Atherosclerotic heart disease of [place] coronary artery without angina pectoris Category: Medical Code(s): I25.10 - Atherosclerotic heart disease of [place] coronary artery without angina pectoris (12) Cardiac pacemaker in situ Current visit: No Status: Chronic Category: Medical Code(s): Z95.0 - Presence of cardiac pacemaker (13) Chronic kidney disease, stage 3 Current visit: No Status: Chronic Category: Medical Code(s): N18.3 - Chronic kidney disease, stage 3 (moderate) (14) Hyperlipemia Current visit: No Status: Chronic Qualifiers: Hyperlipidemia type: other hyperlipidemia Category: Medical Code(s): E78.5 - Hyperlipidemia, unspecified (15) Hypertensive heart disease Current visit: No Status: Chronic Qualifiers: Heart failure presence: with heart failure Heart failure type: diastolic Heart failure chronicity: chronic Qualified Code(s): I11.0 - Hypertensive heart disease with heart failure Category: Medical Code(s): I11.9 - Hypertensive heart disease without heart failure - Assessment and plan all Dx Assessment and Plan for all problems:: Patient seen and examined. Concur with above. Will obtain PT eval to assess for post hospital needs.
--- NOTE | 2019-02-05 09:29 | Progress Note ---
Subjective Date: 02/05/19 Time: 09:15 Principal diagnosis: dizziness Interval history: This is an 78-year-old female who was admitted to the hospital after an episode of dizziness and falling. She was found to be hypotensive and in acute renal failure. The patient has been in getting IV fluids and all of her diuretics and lisinopril was stopped. The patient's creatinine has improved to 1.3 today. She denies any dizziness today. She denies any shortness of breath or edema. She denies any chest pain or pressure. She denies any fever, chills, nausea, vomiting, diarrhea, PND or orthopnea. She states that she is feeling much better. Exam Vital signs and Labs for Last 24 Hours: Temp Pulse Resp BP Pulse Ox 98.3 F 84 18 111/70 95 02/05/19 08:00 02/05/19 08:12 02/05/19 08:00 02/05/19 08:00 02/05/19 08:00 Laboratory Results - last 24 hr 02/05/19 06:48: Sodium 138, Potassium 5.1, Chloride 108 H, Carbon Dioxide 27, Anion Gap 8.1, BUN 37 H D, Creatinine 1.35 H D, Estimated Creat Clear 35, Estimated GFR 38 L, Est GFR ( Amer) 46 L D, Glucose 103, Calcium 8.3 L I & O for Last 24 hours: Intake & Output 02/02/19 02/03/19 02/04/19 02/05/19 23:59 23:59 23:59 23:59 Intake Total 5688 / 6416 1157 / 1157 Output Total 2400 / 2400 2750 / 2750 325 / 325 Balance -2400 / -2400 2938 / 3666 832 / 832 Weight 148 lb 1 oz 148 lb 0.999 oz 149 lb 2 oz Narrative: Her telemetry strip shows atrial fibrillation with a rate of 82. - Constitutional no acute distress, average body habitus - *Routine HEENT Exam Head: Present: normocephalic, atraumatic Eye: Present: EOMI, PERRL ENT: Present: mucous membranes moist - *Routine Neck Exam Present: supple, full ROM, normal carotid upstroke. Absent: JVD, carotid bruit, lymphadenopathy - *Routine Respiratory Exam Present: CTA bilaterally - *Routine Cardiovascular Exam Present: Normal S1, Normal S2, irregularly irregular. Absent: murmur - *Routine Abdominal Exam Present: soft, normoactive bowel sounds. Absent: tenderness, distended - *Routine Extremities Exam Present: full ROM, pulses intact, normal capillary refill. Absent: cyanosis, clubbing, edema - *Routine Skin Exam Present: intact, petechiae (Noted to her left hip), warm. Absent: erythema, rash - *Routine Neurological Exam Present: alert, oriented X3, CN II-XII intact. Absent: sensory deficit, motor deficit - Detailed Eye Exam Eyelids: Left normal inspection Progress Note: A&P (1) Near syncope Status: Acute Current Visit: Yes (2) Fall Status: Acute Current Visit: Yes (3) Contusion of left hip Status: Acute Current Visit: Yes (4) Hematoma Status: Acute Current Visit: Yes (5) Acute on chronic renal failure Status: Acute Current Visit: Yes (6) Prerenal azotemia Status: Acute Current Visit: Yes (7) Arthritis Status: Chronic Current Visit: No (8) Chronic diastolic heart failure Status: Chronic Current Visit: No (9) Anticoagulant long-term use Status: Chronic Current Visit: No (10) Atrial fibrillation Status: Chronic Current Visit: No (11) CAD (coronary artery disease) Status: Chronic Current Visit: No (12) Cardiac pacemaker in situ Status: Chronic Current Visit: No (13) Chronic kidney disease, stage 3 Status: Chronic Current Visit: No (14) Hyperlipemia Status: Chronic Current Visit: No (15) Hypertensive heart disease Status: Chronic Current Visit: No Assessment and Plan for All Diagnoses:: Plan: 1. Patient was admitted to the hospital secondary to fall. She was found to be hypotensive and in acute renal failure. The patient has been getting IV fluid resuscitation and her creatinine is down to 1.3 today which is significantly improved. We will continue to hold her diuretics and lisinopril at this time. 2. The patient does have chronic diastolic congestive heart failure. Will need to be mindful of the amount of fluids that the patient does get to avoid pulmonary edema. 3. The patient does have chronic atrial fibrillation. She does have a history of multiple episodes of atrial fibrillation with RVR. Her heart rate is a little higher than we would like today at 82 bpm. We will increase her bisoprolol to 10 mg p.o. daily for better heart rate control. 4. Her blood pressure is well controlled today. 5. Her coronary artery disease is likely stable. She denies any chest pain or pressure at this time. 6. Her LDL goal is less than 55. 7. The patient does have permanent pacemaker in place. Her download yesterday showed no events. She is in chronic atrial fibrillation. 8. The patient is on long-term anticoagulation with Xarelto. We will continue this medication. 9. She is diabetic. She does need aggressive control of her diabetes. Will defer this to her primary care provider. 10. No further recognitions at this time from a cardiac standpoint. She is stable for discharge home from a cardiac standpoint whenever her primary care provider feels that it is reasonable to discharge the patient. She will need to follow-up in 1 to 2 weeks on an outpatient basis. Thank you for the opportunity to help participate in the care of this patient.
--- NOTE | 2019-02-05 14:47 | Discharge Summary ---
General - General Admission date:: 02/04/19 <Brent Bonilla - 02/24/19 12:39> 02/04/19 <Magdalena Rivero - 02/05/19 14:49> Discharge date: 02/05/19 <Magdalena Rivero - 02/05/19 14:49> HPI HPI: Ms. Bolanos is an 78-year-old female with a history of A. fib with pacemaker/defibrillator, CHF, coronary artery disease, type 2 diabetes, GERD, and hypertension. She states 2 days prior to admission, she had some strawberries that fell on the floor. She bent over to pick them up and got dizzy and fell landing on her left hip. She was able to get herself up and into her recliner. She stated her daughter had a physical therapy appointment in the hospital the next day and she felt she should come to the emergency room for evaluation of her left hip as it continued to hurt. She did have a pelvic CT which showed a posterior pelvic hematoma but no fracture. Her BUN was 78 and her creatinine was 4.23. Her potassium was elevated and her sodium was low, therefore she was admitted for IV fluids. <Magdalena Rivero - 02/05/19 14:49> Hospital Course Hospital Course: The patient's chest x-ray showed nothing acute. Her head CT also showed nothing acute. Her lumbar spine CT showed some disc bulging and arthritic changes as well as canal stenosis, but nothing acute. Her pelvic CT showed a left lower flank and upper posterior pelvic hematoma but no acute fracture. She was admitted and started on IV fluids due to her renal failure. Cardiology was consulted for recommendations on adjusting patient's diuretics upon discharge. The patient's renal function improved with hydration and her potassium and sodium both normalized. Cardiology saw the patient and stopped her Lasix and Aldactone given her acute renal failure. They felt if the patient became short of breath, they would consider starting her back on low-dose diuretics. They also stopped her lisinopril secondary to the acute renal failure. They recommended continuing her bisoprolol for her history of atrial fibrillation and decreasing her diltiazem dose down to 120 mg for rate control. They also recommended continuing Xarelto for anticoagulation. They checked her pacemaker and it showed no new events. The battery life was good for 10 years. By 02/05/2019, the patient was feeling a little bit better. She continued to have left hip pain. Her renal function continued to improve. Physical therapy was ordered for an evaluation and they felt the patient was appropriate to return home once medically stable with home health physical therapy. Cardiology felt she was stable to be discharged home and they recommended continuing to hold her diuretics and lisinopril. They wanted to see the patient in follow-up in their office in 1 to 2 weeks. <Magdalena Rivero - 02/05/19 14:49> Objective Vital signs: Temp Pulse Resp BP Pulse Ox 98.3 F 80 18 111/70 95 02/05/19 08:00 02/05/19 12:00 02/05/19 08:00 02/05/19 08:00 02/05/19 08:00 <Brent Bonilla - 02/24/19 12:39> Temp Pulse Resp BP Pulse Ox 98.3 F 80 18 111/70 95 02/05/19 08:00 02/05/19 12:00 02/05/19 08:00 02/05/19 08:00 02/05/19 08:00 <Magdalena Rivero - 02/05/19 14:49> Narrative: - Constitutional no acute distress - *Routine Respiratory Exam Present: CTA bilaterally - *Routine Cardiovascular Exam Present: RRR - *Routine Abdominal Exam Present: soft, normoactive bowel sounds. Absent: tenderness - *Routine Extremities Exam Absent: cyanosis, clubbing, edema Comments: ecchymosis along the left lateral hip and up into the left pelvic region - *Routine Skin Exam Present: warm. Absent: rash - *Routine Neurological Exam Present: alert, oriented X3 <Magdalena Rivero - 02/05/19 14:49> Results Labs on day of discharge: Labs from last 24 hours 02/05/19 06:48 Sodium 138 Potassium 5.1 Chloride 108 H Carbon Dioxide 27 Anion Gap 8.1 BUN 37 H D Creatinine 1.35 H D Estimated Creat Clear 35 Estimated GFR 38 L Est GFR ( Amer) 46 L D Glucose 103 Calcium 8.3 L <Magdalena Rivero - 02/05/19 14:49> DS: Diagnosis - Discharge Diagnosis (1) Near syncope Status: Acute (2) Fall Status: Acute (3) Contusion of left hip Status: Acute (4) Hematoma Status: Acute (5) Acute on chronic renal failure Status: Acute (6) Prerenal azotemia Status: Acute (7) Arthritis Status: Chronic (8) Chronic diastolic heart failure Status: Chronic (9) Anticoagulant long-term use Status: Chronic (10) Atrial fibrillation Status: Chronic (11) CAD (coronary artery disease) Status: Chronic (12) Cardiac pacemaker in situ Status: Chronic (13) Chronic kidney disease, stage 3 Status: Chronic (14) Hyperlipemia Status: Chronic (15) Hypertensive heart disease Status: Chronic <Magdalena Rivero - 02/05/19 14:43> (1) Near syncope Status: Acute (2) Fall Status: Acute (3) Contusion of left hip Status: Acute (4) Hematoma Status: Acute (5) Acute on chronic renal failure Status: Acute (6) Prerenal azotemia Status: Acute (7) Arthritis Status: Chronic (8) Chronic diastolic heart failure Status: Chronic (9) Anticoagulant long-term use Status: Chronic (10) Atrial fibrillation Status: Chronic (11) CAD (coronary artery disease) Status: Chronic (12) Cardiac pacemaker in situ Status: Chronic (13) Chronic kidney disease, stage 3 Status: Chronic (14) Hyperlipemia Status: Chronic (15) Hypertensive heart disease Status: Chronic <Brent Bonilla - 02/24/19 12:39> Discharge Plan - Patient Discharge Instructions ACTIVITY: Continue current activity <Magdalena Rivero - 02/05/19 14:49> DIET: continue same diet <Magdalena Rivero - 02/05/19 14:49> Patient Instructions: How to Prevent Falls, Low-Sodium Diet <Brent Bonilla - 02/24/19 12:39> Forms: <Brent Bonilla - 02/24/19 12:39> - Follow up Plan Follow up with: Stephan Dillon MD [Staff Physician] - 02/16/19 <Brent Bonilla - 02/24/19 12:39> Disposition: Home Health Service <Brent Bonilla - 02/24/19 12:39> Home Medications: Home Medications Medication Instructions Recorded Confirmed Type aspirin 81 mg tablet,delayed 81 mg PO DAILY tab 04/02/17 02/03/19 History release digoxin 125 mcg (0.125 mg) tablet 125 mcg PO DAILY #30 tab 12/03/17 02/03/19 Rx levothyroxine 75 mcg capsule 75 mcg PO DAILY #90 cap 12/04/17 02/03/19 Rx atorvastatin 80 mg tablet 80 mg PO HS #90 tab 02/13/18 02/03/19 Rx buspirone 15 mg tablet 15 mg PO BID tab 11/11/18 02/03/19 History pioglitazone 15 mg tablet 15 mg PO DAILY 11/11/18 02/03/19 History diltiazem CD 180 mg 180 mg PO Q24H #30 cap 12/29/18 02/03/19 Rx capsule,extended release 24 hr rivaroxaban 20 mg tablet 20 mg PO DAILY #30 tab 01/28/19 02/03/19 Rx Cetirizine HCl 10 mg PO DAILYP PRN 02/04/19 02/04/19 History Cyclobenzaprine HCl 10 mg PO TIDP PRN 02/04/19 02/04/19 History [Cyclobenzaprine 10mg Tab] bisoproloL fumarate [Bisoprolol 10 mg PO DAILY #30 tab 02/05/19 Rx 10mg Tablet] enoxaparin 80 mg/0.8 mL 70 mg SQ BID #9 ml 02/16/19 02/16/19 Rx subcutaneous syringe <Brent Bonilla - 02/24/19 12:39> Prescriptions/Medication Reconciliation: New bisoproloL fumarate [Bisoprolol 10mg Tablet] 10 mg PO DAILY #30 tab Continued aspirin 81 mg tablet,delayed release 81 mg PO DAILY tab levothyroxine 75 mcg capsule 75 mcg PO DAILY #90 cap buspirone 15 mg tablet 15 mg PO BID tab pioglitazone 15 mg tablet 15 mg PO DAILY digoxin 125 mcg (0.125 mg) tablet 125 mcg PO DAILY #30 tab atorvastatin 80 mg tablet 80 mg PO HS #90 tab diltiazem CD 180 mg capsule,extended release 24 hr 180 mg PO Q24H #30 cap rivaroxaban 20 mg tablet 20 mg PO DAILY #30 tab Cetirizine HCl 10 mg PO DAILYP PRN PRN Reason: allergy symptoms Cyclobenzaprine HCl [Cyclobenzaprine 10mg Tab] 10 mg PO TIDP PRN PRN Reason: Muscle Pain Discontinued furosemide 80 mg tablet 80 mg PO Q24H #90 tab lisinopril 10 mg tablet 10 mg PO DAILY Bisoprolol Fumarate [Bisoprolol 5mg Tablet] 5 mg PO DAILY Spironolactone [Spironolactone 25mg Tablet] 25 mg PO DAILY No Action enoxaparin 80 mg/0.8 mL subcutaneous syringe 70 mg SQ BID #9 ml <Brent Bonilla - 02/24/19 12:39> - Problem Reconciliation Problems Reviewed?: Yes <Brent Bonilla - 02/24/19 12:39> Yes <Magdalena Rivero - 02/05/19 14:49> - Additional Information Additional Information: Concur with plan for discharge as outlined above. <Brent Bonilla - 02/24/19 12:39>
--- NOTE | 2019-02-06 08:15 | Electrocardiograph Report ---
APPROVED REPORT Exam: Resting ECG HR:72 bpm ECG Measurements Heart Rate 72 AXES QRSd 164 QRS -69 QT 422 T82 QTc 462 <Conclusion> Electronic ventricular pacemaker Electronically signed by : Reddy Dey, 02/06/2019 08:14:59
== END 2019-02-05 16:45 | disposition home health service (06) | DRG 292 ==
LOC: UTC 13:28 → 2ND 13:28 → ER 13:28 → OBSVTOIN 19:04 → INTOOBSV 19:04 → 2ND 19:04
PROVIDERS: ADMIT Family Medicine; ATTEND Family Medicine
CPT/HCPCS: 36415; 70450; 71010; 71045; 72131; 72192; 80048; 80076; 80162; 81001; 82550; 84484; 85025; 93005; 93306; 96365; 96367; 96375; 97162; 99285; G0378; J2405

== ENCOUNTER 2019-07-13 15:00 | Outpatient (RCR) | payer MEDICARE, MEDICAID, SELFPAY | END 2019-07-13 17:00 | disposition home or self-care (01) | LOC: PT.CARL 15:00 | PROVIDERS: PCP Family Medicine; Visit Provider Nurse Practitioner Family | DX: M62.81 Muscle weakness (generalized) (principal) | CPT/HCPCS: 97110; 97140; 97163 ==

== ENCOUNTER 2019-07-22 14:00 | Outpatient (RCR) | payer MEDICARE, MEDICAID, SELFPAY ==
--- NOTE | 2019-06-09 13:06 | HMH.PTOPEV ---
PT Outpatient Evaluation Rehab PT Outpatient Evaluation Start: 06/09/19 10:40 Freq: Status: Active Protocol: Document 06/09/19 10:40 RIOS (Rec: 06/09/19 13:04 RIOS [id number]) Electronically Signed By Jose Wright, PT 06/09/19 10:40 Outpatient Therapy Subjective History Subjective History Pt reports R TKA on 03/13/19, with rehab 'going good', but pt reports R knee 'got infected'. Pt reports 2nd R knee procedure ~3 weeks ( described as I&D), and 'it's been doing better since then'. Pt reports global R knee pain currently, 'worse in the front', and limited ROM. Chief Complaint Pain,Stiff,Weakness Symptom Type Ache,Sharp,Dull Symptoms Relieved By Rest/Positioning,Ice Symptoms Aggravated By Physical Activity,Twisting, Walking Prior Functional Limitations Housework,Standing,Walking, Stairs Current Functional Limitations Housework,Standing,Squatting, Walking,Stairs Symptom Description Constant but Variable Level of pain today (0-10) 9 Pain scale - at its best (0-10) 9 Pain scale - at its worst (0-10) 9 Hip/Knee Eval Gait Observation General Gait Pattern Observation Antalgic Gait,Wide Based Gait Assistive Device Assistive Devices Rolling / Wheeled Walker Palpation Tenderness right Knee Palpation Finding Tenderness Knee Palpation Overall Comment 3/4 MMT left Hip Flexion Strength Grade 4 Good Hip Abduction Strength Grade 4- Good- Hip Adduction Strength Grade 4- Good- Hip Extension Strength Grade 4- Good- Knee Extension Strength Grade 4 Good Knee Flexion Strength Grade 4 Good right Hip Flexion Strength Grade 4- Good- Hip Abduction Strength Grade 3+ Fair+ Hip Adduction Strength Grade 3+ Fair+ Hip Extension Strength Grade 4- Good- Knee Extension Strength Grade 4- Good- Knee Flexion Strength Grade 4- Good- ROM left Knee Flexion Active Range of Motion ( 5-110 degrees) right Knee Flexion Active Range of Motion ( 10-90 degrees) Knee Flexion Passive Range of Motion ( 5-100 degrees) Effusion joint effusion knee exam standard right Mid - Patellar Circumerential Measure ( 37.5 cm) Outpatient Therapy Assessment Impairments Problems/Impairmments Palpation Tenderness,Impaired Range of Motion,Impaired
== END 2019-07-22 16:15 | disposition home or self-care (01) ==
LOC: PT.CARL 14:00
PROVIDERS: PCP Family Medicine; Visit Provider Internal Medicine Adolescent Medicine
DX: M25.561 Pain in right knee (principal); M17.0 Bilateral primary osteoarthritis of knee; Z96.651 Presence of right artificial knee joint
CPT/HCPCS: 97016; 97110; 97140; 97163; 97760

== ENCOUNTER 2020-02-27 18:22 | Emergency (ER) | payer MEDICARE, MEDICAID, SELFPAY ==
[2020-02-27 18:23] VITALS: BP 103/53; PULSE 74; RESP 16; TEMP 36.8; O2SAT 92; BMI 26.6
--- NOTE | 2020-02-27 18:28 | CT_ITS ---
PROCEDURE: CT ABDOMEN PELVIS W CON CLINICAL INDICATION: fall COMPARISON: No exams were available for comparison TECHNIQUE: IV Contrast: 75ML Isovue 370 Oral Contrast none givenAxial images obtained with sagittal and coronal reformats. All CT scans at the facility use one or more dose reduction, viz: automated exposure control, ma/kV adjustment per patient size (including targeted exams where dose is matched to indication, i.e. head), or iterative reconstruction technique. 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 The stomach presents just beneath the elevated left hemidiaphragm. There is minimal left basilar atelectasis in the posterior gutter, there is no pleural fluid on either side. ABDOMEN: Liver: Grossly normal in overall size, showing mild diffuse fatty infiltration. Gallbladder: Multiple calcified gallstones near the neck of the gallbladder, the remainder of the gallbladder appearing somewhat hydropic. Pancreas: No masses or peripancreatic fluid collections. Spleen: The spleen is small normal in size and contains a couple of calcified granulomata. There is no evidence of traumatic injury. Adrenals: unremarkable Kidneys/ureters: The kidneys are normal in size and show symmetrical function both appearing normal. ABDOMEN & PELVIS: Stomach bowel: Most of the stomach extends upward presenting just beneath the elevated left hemidiaphragm. The small bowel is grossly normal. There is moderate scattered stool and gas seen throughout the colon especially in the somewhat elongated sigmoid colon and also upper rectum. Peritoneum: No abnormal fluid collections. No obvious inflammatory changes. No free air. Lymph nodes: No enlarged lymph nodes apparent. Vasculature: There is marked and diffuse arthrosclerotic calcification of the abdominal aorta and lower thoracic aorta with mild calcification of the proximal common iliac arteries as well but there is no evidence of aneurysm. Bones: There multilevel degenerate changes of the lower thoracic and lumbar spine. Other: There is a large somewhat heterogenic appearing soft tissue mass right lateral abdominal wall measuring 6.0 x 8.3 cm on the axial image by 11.7 cm superior to inferior dimension on the coronal sequence. There is diffuse subcutaneous edema in the right lateral abdominal wall. Couple of the images show apparent active bleeding likely arterial at the superior most extent of this mass. This obviously is a an evolving and active bleeding hematoma. PELVIS: Reproductive: Post hysterectomy Bladder: The urinary bladder is moderately distended with urine but shows no evidence of traumatic injury. There is no free fluid in the pelvis. Appendix: Not definitely identified but there are no findings to suggest appendicitis.. IMPRESSION: Large right lateral abdominal wall mass consistent with an evolving hematoma likely with active bleeding and I suspect this is arterial in origin. Mild diffuse contusion and/or generalized edema of the subcutaneous tissues right lateral abdominal wall surrounding the hematoma. Obvious cholelithiasis at the neck of the gallbladder Dictated by: Dr. Dallas Dumont MD 02/27/2020 20:44 Dr. Dallas Dumont MD in [place] 02/27/2020 20:44
[2020-02-27 18:50] LABS: Basophils # 0.1 K/mm3 (0-0.2); Basophils % 0.8 % (0.1-2.0); Eosinophils # 0.1 K/mm3 (0.0-0.4); Eosinophils % 1.1 % (0.1-12.0); Hematocrit 40.2 % (37.0-47.0); Hemoglobin 13.4 g/dL (12.2-16.2); Lymphocytes # 1.8 K/mm3 (0.7-4.5); Lymphocytes % 18.2 % (10-50); Mean Corpuscular HGB Conc 33.2 g/dL (31.8-35.4); Mean Corpuscular Hemoglobin 30.1 pg (27.0-31.2); Mean Corpuscular Volume 90.7 fl (81-99); Mean Platelet Volume 7.6 fl (7.4-10.4); Monocytes # 0.7 K/mm3 (0.1-1.0); Monocytes % 7.2 % (1.7-9.3); Neutrophils # 7.3 K/mm3 (1.8-7.8); Neutrophils % 72.6 % (37.0-80.0); Platelet Count 250 K/mm3 (142-424); Red Blood Count 4.43 M/mm3 (4.20-5.40); Red Cell Distribution Width 14.7 % (11.5-17.5); White Blood Count 10.1 K/mm3 (4.8-10.8)
[2020-02-27 18:52] VITALS: BP 91/42; PULSE 71; O2SAT 92
[2020-02-27 18:53] LABS: Alanine Aminotransferase 21 U/L (12-78); Albumin Level 3.7 g/dl (3.5-5.0); Albumin/Globulin Ratio 1.2 (1.1-1.8); Alkaline Phosphatase 106 U/L (38-126); Anion Gap 9.2 mEq/L (5-15); Aspartate Amino Transferase 31 U/L (14-36); Bilirubin,Total 0.8 mg/dl (0.2-1.3); Blood Urea Nitrogen 19 mg/dl (7-17); Calcium 8.8 mg/dl (8.4-10.2); Carbon Dioxide 36 mmol/L (22.0-30.0); Chloride 96 mmol/L (98-107); Creatinine Clearance Estimated 51 mL/min (50-200); Estimated Glomerular Filt Rate 53 ml/min (>60); GFR (African American) 64 ML/MIN (>60); Globulin 3.2 g/dL (1.3-3.2); Glucose 111 mg/dl (74-100); Potassium 4.2 mmoL/L (3.5-5.1); Sodium 137 mmol/L (136-145); Total Protein,Serum 6.9 g/dl (6.3-8.2)
[2020-02-27 18:57] LABS: INR 1.47 (0.9-1.1); Prothrombin Time 15.8 seconds (9.4-11.8)
--- NOTE | 2020-02-27 19:05 | HMH.EDGENADL ---
ED Disposition Clinical Impression: Subcutaneous hematoma, Hemorrhage Disposition: Xfer Other Condition on Discharge: Serious Referrals: Jessica Ojeda [Primary Care Provider] - - Critical Care Critical Care Time: Yes (45 minutes) Attestation: On 02/27/20, the high probability of a clinically significant, sudden or life threatening deterioration of the following system(s) required my full and direct attention, intervention and personal management. The time I documented below is in addition to time spent performing reported procedures but includes the following listed in this critical care notation. Vital system(s) involved:: Circulatory Failure, Shock (Hemorrhage) My critical care processes included: Assessment & monitoring of V/S, Initial and Re-exams, Data Review/Interpretation, Coordinating Care, Medication Orders and management, Documentation Medical Decision Making - Medical Records Medical records reviewed: Yes: I reviewed the patient's medical records. - Edvin Inquiry Pt receiving controlled substance: No Vital Signs: 02/27/20 18:23 02/27/20 18:52 02/27/20 19:23 Temperature 98.2 F Temperature Source Oral Pulse Rate [Left Radial] 74 71 76 Respiratory Rate 16 16 Blood Pressure [Right Arm] 103/53 L 91/42 L 98/56 L Blood Pressure Mean [Right Arm] 69 58 70 Blood Pressure Source [Right Arm] Automatic Cuff Automatic Cuff Automatic Cuff Blood Pressure Position [Right Arm] Sitting Sitting Sitting 02 Sat by Pulse Oximetry 92 L 92 L 92 L Oxygen Delivery Method Room Air Room Air Room Air - Lab Data Lab Results 02/27/20 18:30: WBC 10.1, RBC 4.43, Hgb 13.4, Hct 40.2, MCV 90.7, MCH 30.1, MCHC 33.2, RDW 14.7, Plt Count 250, MPV 7.6, Neut % (Auto) 72.6, Lymph % (Auto) 18.2, [place] % (Auto) 7.2, Eos % (Auto) 1.1, Baso % (Auto) 0.8, Neut # (Auto) 7.3, Lymph # (Auto) 1.8, [place] # (Auto) 0.7, Eos # (Auto) 0.1, Baso # (Auto) 0.1 02/27/20 18:30: PT 15.8 H, INR 1.47 H 02/27/20 18:30: Sodium 137, Potassium 4.2, Chloride 96 L, Carbon Dioxide 36 H, Anion Gap 9.2, BUN 19 H, Creatinine 1.00, Estimated Creat Clear 51, Estimated GFR 53 L, Est GFR ( Amer) 64, Glucose 111 H, Calcium 8.8, Total Bilirubin 0.8, AST 31, ALT 21, Alkaline Phosphatase 106, Total Protein 6.9, Albumin 3.7, Globulin 3.2, Albumin/Globulin Ratio 1.2 Result diagrams: 02/27/20 18:30 02/27/20 18:30 Orders (Tests/Meds): ED MEDICATIONS Discontinued Medications Generic Name Dose Route Start Last Admin Trade Name Freq PRN Reason Stop Dose Admin Iopamidol 75 ml 02/27/20 19:22 02/27/20 19:23 Iopamidol-370 (76%);100ml Bottle IV 02/27/20 19:23 75 ml ONCE ONE Administration Sodium Chloride 10 ml 02/27/20 19:22 02/27/20 19:23 Sodium Chloride 0.9% 10ml Syr (Rad Only) IV 02/27/20 19:23 10 ml ONCE ONE Administration ORDERS Category Date Time Status CT abdomen pelvis w con Stat Cat Scan 02/27/20 18:28 Taken Medical Decision Narrative: The patient is an 79-year-old female with a history of atrial fibrillation on Xarelto who presents to the emergency department today with right flank pain after a fall. Physical exam concerning for a large subcutaneous hematoma. Vital signs stable. CBC, CMP, INR ordered. CT abdomen pelvis with IV contrast ordered. CT scan concerning for 11 x 7 x 6 hematoma with active extract in the patient's right flank. [facility] consulted for trauma transfer. Hemodynamically stable throughout. General Adult HPI - General Chief complaint: Fall Stated complaint: fall Time Seen by Provider: 02/27/20 18:30 Mode of Arrival: EMS Limitations: No Limitations Description of Symptoms (Recalled from ER Triage Doc. by RN): pt states that sometime this morning she fell in between the toilet and sink. She has swelling and pain on her left abdomen/flank area. Denies any other injuries at this time - History of Present Illness HPI narrative: The patient is an 79-year-old female with a histor
[2020-02-27 19:23] VITALS: BP 98/56; PULSE 76; RESP 16; O2SAT 92
--- NOTE | 2020-02-27 19:53 | PC.NURSE ---
Physician speaking with [facility] with pt's CT report
[2020-02-27 20:00] VITALS: BP 106/50; PULSE 77; RESP 16; O2SAT 90
--- NOTE | 2020-02-27 20:13 | PC.NURSE ---
SPEAKING WITH DR. CARO
--- NOTE | 2020-02-27 20:14 | PC.NURSE ---
[facility] accepted pt.
[2020-02-27 20:21] VITALS: BP 96/73; PULSE 71; RESP 16; O2SAT 91
[2020-02-27 21:19] VITALS: BP 98/72; PULSE 70; RESP 16; TEMP 36.8; O2SAT 94
== END 2020-02-27 21:23 | disposition other institution (70) ==
PROVIDERS: Emergency Provider Emergency Medicine; PCP Nurse Practitioner Family
DX: S36.892A Contusion of other intra-abdominal organs, initial encounter (principal); W18.12XA Fall from or off toilet with subsequent striking against object, initial encounter; Y92.012 Bathroom of single-family (private) house as the place of occurrence of the external cause; I48.20 Chronic atrial fibrillation, unspecified; Z79.01 Long term (current) use of anticoagulants; Z95.0 Presence of cardiac pacemaker; I25.10 Atherosclerotic heart disease of native coronary artery without angina pectoris; E11.9 Type 2 diabetes mellitus without complications; I10 Essential (primary) hypertension; E78.5 Hyperlipidemia, unspecified; K21.9 Gastro-esophageal reflux disease without esophagitis; Z88.8 Allergy status to other drugs, medicaments and biological substances; Z79.899 Other long term (current) drug therapy
CPT/HCPCS: 74177; 80053; 85025; 85610; 96365; 99284; Q9967

== ENCOUNTER 2020-07-08 12:17 | Inpatient (IN) | payer MEDICARE, MEDICAID, SELFPAY ==
[2020-07-08] VITALS (17 sets, daily range): BP systolic 126–148; BP diastolic 60–76; PULSE 64–91; RESP 21–44; TEMP 37.3–38; O2SAT 86–97; BMI 29.9; BMI 25.3
--- NOTE | 2020-07-08 12:18 | ECG_ITS ---
APPROVED REPORT Exam: Resting ECG HR:73 bpm ECG Measurements Heart Rate 73 AXES QRSd 80 QRS 12 QT 348 T 257 QTc 383 Conclusion Demand pacemaker, interpretation is based on intrinsic rhythm Atrial fibrillation with premature ventricular or aberrantly conducted complexes Anterior infarct, age undetermined ST & T wave abnormality, consider inferolateral ischemia or digitalis effect Abnormal ECG Electronically signed by : Reddy Dey, 07/08/2020 19:07:04
--- NOTE | 2020-07-08 12:19 | HMH.EDGENADL ---
ED Disposition Clinical Impression: CHF exacerbation Qualifiers: Heart failure type: unspecified Qualified Code(s): I50.9 - Heart failure, unspecified Acute and chronic respiratory failure Qualifiers: Respiratory failure complication: hypoxia Qualified Code(s): J96.21 - Acute and chronic respiratory failure with hypoxia Disposition: Admitted as Observation Condition on Discharge: Fair Referrals: Jessica Ojeda [Primary Care Provider] - Time of Disposition: 15:18 - Critical Care Critical Care Time: No Attestation: On , the high probability of a clinically significant, sudden or life threatening deterioration of the following system(s) required my full and direct attention, intervention and personal management. The time I documented below is in addition to time spent performing reported procedures but includes the following listed in this critical care notation. Medical Decision Making - Medical Records Medical records reviewed: Yes: I reviewed the patient's medical records. - Edvin Inquiry Pt receiving controlled substance: No Vital Signs: 07/08/20 12:18 07/08/20 12:31 07/08/20 13:00 Temperature 99.2 F Temperature Source Oral Pulse Rate 91 H Pulse Rate [Left Radial] 75 Respiratory Rate 21 28 H 22 Blood Pressure 127/73 133/68 Blood Pressure [Right Arm] 136/64 Blood Pressure Mean 97 100 Blood Pressure Mean [Right Arm] 88 Blood Pressure Source [Right Arm] Automatic Cuff Blood Pressure Position [Right Arm] Sitting 02 Sat by Pulse Oximetry 90 L 91 L 91 L Oxygen Delivery Method Nasal Cannula Oxygen Flow Rate (LPM) 3 07/08/20 13:30 07/08/20 14:00 07/08/20 14:30 Temperature Temperature Source Pulse Rate 72 75 76 Pulse Rate [Left Radial] Respiratory Rate 39 H 32 H 44 H Blood Pressure 148/71 H 128/72 126/65 Blood Pressure [Right Arm] Blood Pressure Mean 104 96 91 Blood Pressure Mean [Right Arm] Blood Pressure Source [Right Arm] Blood Pressure Position [Right Arm] 02 Sat by Pulse Oximetry 94 L 91 L 89 L Oxygen Delivery Method Oxygen Flow Rate (LPM) - Lab Data Lab results reviewed: Yes: I reviewed the patient's lab results. Lab Results 07/08/20 12:25: WBC 10.4, RBC 5.30, Hgb 14.6, Hct 47.8 H, MCV 90.0, MCH 27.5, MCHC 30.6 L, RDW 15.5, Plt Count 210, MPV 6.8 L, Neut % (Auto) 77.8, Lymph % (Auto) 11.9, [place] % (Auto) 8.8, Eos % (Auto) 0.8, Baso % (Auto) 0.6, Neut # (Auto) 8.1 H, Lymph # (Auto) 1.2, [place] # (Auto) 0.9, Eos # (Auto) 0.1, Baso # (Auto) 0.1 07/08/20 12:25: Sodium 140, Potassium 4.3, Chloride 97 L, Carbon Dioxide 34 H, Anion Gap 13.3, BUN 25 H, Creatinine 1.00, Estimated Creat Clear 57, Estimated GFR 53 L, Est GFR ( Amer) 64, Glucose 145 H, Calcium 8.9, Troponin I 0.02 07/08/20 12:25: NT-Pro-B Natriuret Pep 7620 H Result diagrams: 07/08/20 12:25 07/08/20 12:25 Orders (Tests/Meds): ED MEDICATIONS Discontinued Medications Generic Name Dose Route Start Last Admin Trade Name Freq PRN Reason Stop Dose Admin Furosemide 60 mg 07/08/20 13:46 07/08/20 13:55 Furosemide 40mg/4ml Vial IV 07/08/20 13:47 60 mg ONCE ONE Administration ORDERS Category Date Time Status XR chest portable Stat Exams 07/08/20 12:25 Taken Covid-19 Nasal PCR ([facility]) Routine Lab 07/08/20 13:45 Received Urinalysis and Microscopic Stat Lab 07/08/20 12:25 Ordered - CT Data CT Scan: Head, C-Spine Time Received: 14:[address] Reviewed: Yes: I have viewed the radiologist's interpretation Preliminary Findings: Abnormal Findings Narrative: CT head: No acute intracranial findings. Concern for possible mass in the upper cervical spine causing shift of the spinal cord. CT C-spine recommended. CT C-spine: Masslike prominence appreciated. Possible extra synovium but cannot exclude mass. Recommend MRI. - ECG Data Tracing #1 Paced rhythm, 73 bpm, no ST elevation or depression. ECG initial impression date: 07/08/20 ECG initial impression
--- NOTE | 2020-07-08 12:25 | CT_ITS ---
PROCEDURE: CT HEAD/BRAIN WO CON CLINICAL INDICATION: weakness COMPARISON: CR,CT HEADWO CT head/brain wo con from 11/02/[address] HEAD/BRAIN WO CON from 02/03/2019 TECHNIQUE: Axial images obtained. All CT scans at the facility use one or more dose reduction, viz: automated exposure control, ma/kV adjustment per patient size (including targeted exams where dose is matched to indication, i.e. head), or iterative reconstruction technique. FINDINGS: In the right paracentral region posterior to the dens soft tissue density is present with some peripheral calcification and may represent partially calcified pannus formation. This is causing canal stenosis compressing the anterior and right aspect of the cord. This is incompletely image. CT cervical spine may provide further evaluation. No midline shift, mass effect, intracranial hemorrhage, or hydrocephalus is evident. There is generalized atrophy with hypoattenuation of the periventricular white matter consistent with microangiopathic changes.. There is a small air-fluid level in the left maxillary sinus. IMPRESSION: 1. No acute intracranial findings. 2. Mass effect upon the central and right aspect of the cord anteriorly from a partially calcified lesion in the right paracentral area posterior to the odontoid process possibly due to prominent pannus formation. CT cervical spine may provide further evaluation. Dictated by: Bobby Tabor MD 07/08/2020 13:07 Bobby Tabor MD in [facility] 07/08/2020 13:07
--- NOTE | 2020-07-08 12:25 | XR_ITS ---
PROCEDURE: XR CHEST PORTABLE CLINICAL HISTORY: weakness Weakness and shortness of air COMPARISON: CT CHWO CT CHEST W/O CONTRAST from 12/07/2014 CR CXR1 CHEST-PORTABLE from 06/15/2016 CR CXR1VP XR chest portable from 11/02/2017 CR XR CHEST PORTABLE from 02/03/2019 FINDINGS: There is mild cardiomegaly without failure. Bipolar pacemaker is present from left subclavian approach. There is chronic elevation of left hemidiaphragm. There is silhouetting out of the left hemidiaphragm with increased density in the left lung base which may be related to an area of atelectasis or infiltrate. Right lung is clear. Degenerative changes in the shoulders IMPRESSION: Airspace disease in the left lung base consistent with atelectasis or infiltrate with elevated left hemidiaphragm Dictated by: Bobby Tabor MD 07/08/2020 15:32 Bobby Tabor MD in [facility] 07/08/2020 15:32
--- NOTE | 2020-07-08 12:31 | PC.NURSE ---
pt going to ct
[2020-07-08 12:34] LABS: Basophils # 0.1 K/mm3 (0-0.2); Basophils % 0.6 % (0.1-2.0); Eosinophils # 0.1 K/mm3 (0.0-0.4); Eosinophils % 0.8 % (0.1-12.0); Hematocrit 47.8 % (37.0-47.0); Hemoglobin 14.6 g/dL (12.2-16.2); Lymphocytes # 1.2 K/mm3 (0.7-4.5); Lymphocytes % 11.9 % (10-50); Mean Corpuscular HGB Conc 30.6 g/dL (31.8-35.4); Mean Corpuscular Hemoglobin 27.5 pg (27.0-31.2); Mean Platelet Volume 6.8 fl (7.4-10.4); Monocytes # 0.9 K/mm3 (0.1-1.0); Monocytes % 8.8 % (1.7-9.3); Neutrophils # 8.1 K/mm3 (1.8-7.8); Neutrophils % 77.8 % (37.0-80.0); Platelet Count 210 K/mm3 (142-424); Red Cell Distribution Width 15.5 % (11.5-17.5); White Blood Count 10.4 K/mm3 (4.8-10.8)
[2020-07-08 12:44] LABS: Blood Urea Nitrogen 25 mg/dl (7-17); Calcium 8.9 mg/dl (8.4-10.2); Chloride 97 mmol/L (98-107); Creatinine Clearance Estimated 57 mL/min (50-200); Estimated Glomerular Filt Rate 53 ml/min (>60); GFR (African American) 64 ML/MIN (>60); Glucose 145 mg/dl (74-100); Potassium 4.3 mmoL/L (3.5-5.1); Sodium 140 mmol/L (136-145)
[2020-07-08 12:51] LABS: Anion Gap 13.3 mEq/L (5-15)
[2020-07-08 12:54] LABS: Carbon Dioxide 34 mmol/L (22.0-30.0)
[2020-07-08 12:56] LABS: Troponin I 0.02 ng/ml (0.00-0.034)
--- NOTE | 2020-07-08 14:01 | CT_ITS ---
PROCEDURE: CT CERVICAL SPINE WO CON CLINICAL INDICATION: Weakness COMPARISON: CR XR CHEST PORTABLE from 07/08/2020 TECHNIQUE: Axial images obtained with sagittal and coronal reformats. All CT scans at the facility use one or more dose reduction, viz: automated exposure control, ma/kV adjustment per patient size (including targeted exams where dose is matched to indication, i.e. head), or iterative reconstruction technique. Axial spiral CT scanning performed of the cervical spine beginning at the base of the skull and continuing to the upper T-spine. 3-D multiplanar reconstruction with 3-D manipulation of volumetric data set in image rendering was completed by the radiologist and/or technologist with the supervision of the radiologist on independent workstation. FINDINGS: There is generalized motion artifact which does somewhat limit fine detail. There is a partially calcified masslike lesion beginning at the inferior tip of the clivus and extending inferiorly to the mid aspect of the C2 vertebral body measuring 3 cm cephalad caudad, 1.3 cm AP, and 2 cm transverse. This is partially calcified and is more prominent along the right aspect of the lesion which is at the base of the odontoid process. This is causing severe canal stenosis at 7 mm eccentric toward the right. No bony destruction. There are some subchondral cystic changes along the posterior aspect of the odontoid process. C2-C3: Degenerative disc disease with endplate hypertrophy with bilateral foraminal narrowing left greater than right. C3-C4: 3 mm anterolisthesis of C4 with bilateral foraminal narrowing from facet and uncovertebral hypertrophy and degenerative disc disease. C4-C5: Degenerative disc disease with bilateral foraminal narrowing in narrowing of the canal at 8 mm. C5-C6: Degenerative disc disease with bilateral foraminal narrowing. C6-C7: Mild degenerative disc disease. C7-T1: Unremarkable Lung apices are clear IMPRESSION: Partially calcified masslike lesion at the C1-C2 level posteriorly. This may be related to partially calcified redundant/hypertrophied synovium but does appear to be causing canal stenosis at this level and is eccentric toward the right. This raises suspicion additional types of masses such as a meningioma. MRI may provide further evaluation if feasible. Motion artifact is present on this exam. Multilevel cervical spondylosis as described above. Dictated by: Bobby Tabor MD 07/08/2020 14:51 Bobby Tabor MD in [facility] 07/08/2020 14:51
[2020-07-08 14:11] LABS: NT Pro Brain Natriuretic Pep. 7620 pg/mL (0-450)
--- NOTE | 2020-07-08 16:55 | PC.NURSE ---
Report given to Jane Plaza RN
[2020-07-08 18:07] LABS: Microscopic, Urine URINE MICROSCOPIC (MICROSCOPIC)
[2020-07-08 18:09] LABS: Appearance,Urine SL CLOUDY (Clear); Bilirubin,Urine Negative (Negative); Blood, Urine 2+ (Negative); Color,Urine YELLOW (Yellow); Glucose,Urine (UA) Negative (Negative); Ketones,Urine Negative (Negative); Leukocyte Esterase,Urine Negative (Negative); Nitrate,Urine POSITIVE (Negative); Protein,Urine Negative (Negative); Urobilinogen,Urine 0.2 EU/dl (0.2)
[2020-07-08 18:18] LABS: Bacteria,Urine 4+ /lpf; Mucus,Urine Trace /lpf; Squamous Epithelial Cell,Urine Occasional #/hpf (0-5)
--- NOTE | 2020-07-08 18:58 | PC.WOUNDNOTE ---
PEA SIZED STAGE 2 NOTED TO THE RT BUTTOCK BRUISING/REDNESS NOTED TO THE COCCYX MASS-LIKE AREA NOTED TO THE RT SIDE
--- NOTE | 2020-07-08 20:35 | PC.NURSE ---
Pt temp was 100.4 axilary per MICA BUILDER, reassed Temp was 99.3 F. Gave Tylenol 650 mg. Will continue to monitor.
--- NOTE | 2020-07-08 21:25 | PC.NURSE ---
Pt had a difficult time swallowing water, she coughed after a sip. Gave patient Applesauce and did not cough. Crushed pills Lipitor 40 mg X 2 and Tylenol 325 X 2 and made patient NPO for a swallow study. Left patient 90 degrees for 15 minutes. Reassesed mouth and no medication or food particles noted. Will pass on to day shift. Will continue to monitor.
--- NOTE | 2020-07-08 22:24 | PC.NURSE ---
Spoke with Patient's daughter Mary Ann and was inquiring about patient's behavior. Pt can follow commands but is very weak. Patient's daughter stated that this morning she went to the house and discovered that her mother had not urinated the previous night. She also stated that she could not swallow her medications properly. Daughter also stated this was very unusual. Performed a small neuro exam on patient. 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 No noted facial droop or slurred speech. Patient not strong enough to hold up both arms. Also noted patient temp 98.9F Patient followed commands. Will continue to monitor for any acute changes.
[2020-07-09] VITALS (23 sets, daily range): BP systolic 85–177; BP diastolic 33–97; PULSE 60–92; RESP 12–28; TEMP 36.5–38.7; O2SAT 90–100; BMI 25.4
--- NOTE | 2020-07-09 05:23 | XR_ITS ---
PROCEDURE: XR CHEST PORTABLE CLINICAL HISTORY: Respitory failure COMPARISON: No exams were available for comparison FINDINGS: There is cardiomegaly. Bipolar pacemaker is present from left approach. There are low lung volumes with vascular crowding in the perihilar regions and lower lobes. There is elevated left hemidiaphragm with small left effusion. Increased density is present in the the right lung base consistent with atelectasis or infiltrate which has developed since the previous exam. There remains left basilar atelectasis or infiltrate. Degenerative changes of the shoulders. IMPRESSION: Low lung volumes with bibasilar airspace disease consistent with atelectasis or infiltrate unchanged on the left and increased on the right Dictated by: Bobby Tabor MD 07/09/2020 06:00 Bobby Tabor MD in [place] 07/09/2020 06:00
[2020-07-09 05:30] LABS: ABG Base Excess 6.6 mmol/L (-2.4-2.3); ABG Oxygen Saturation 74 % (90-100); ABG PO2 53.2 mmhg (80-100)
[2020-07-09 05:31] LABS: Allen's Test Patient Unable; Oxygen 100% NRB %; Source Right Femoral
[2020-07-09 05:35] LABS: ABG PCO2 162.6 mmhg (35.0-45.0); ABG PH 6.99 mmol/L (7.35-7.45)
[2020-07-09 05:59] LABS: Basophils # 0.3 K/mm3 (0-0.2); Basophils % 1.8 % (0.1-2.0); Eosinophils # 0.1 K/mm3 (0.0-0.4); Eosinophils % 0.3 % (0.1-12.0); Hematocrit 52.8 % (37.0-47.0); Hemoglobin 15.4 g/dL (12.2-16.2); Lymphocytes # 1.7 K/mm3 (0.7-4.5); Lymphocytes % 10.6 % (10-50); Mean Corpuscular HGB Conc 29.3 g/dL (31.8-35.4); Mean Corpuscular Hemoglobin 27.2 pg (27.0-31.2); Mean Platelet Volume 7.8 fl (7.4-10.4); Monocytes # 1.4 K/mm3 (0.1-1.0); Neutrophils # 12.1 K/mm3 (1.8-7.8); Neutrophils % 78.2 % (37.0-80.0); Platelet Count 250 K/mm3 (142-424); Red Blood Count 5.68 M/mm3 (4.20-5.40); Red Cell Distribution Width 15.6 % (11.5-17.5); White Blood Count 15.5 K/mm3 (4.8-10.8)
[2020-07-09 06:03] LABS: MANUAL DIFFERENTIAL MANUAL DIFFERENTIAL (MANUAL DIFF)
--- NOTE | 2020-07-09 06:03 | HMH.RR ---
Acute Rapid Response Note - Subjective Date Responded: 07/09/20 Time Responded: 05:00 Provider Note: called to second floor- rapid red resp for change in mental status - pt unable to give hx - nurse reports dec bp and loc over the last 30 min- no chest pain - ed record reviewed - pt was obtunded - - Objective Findings: Vital Signs - Last 4 Hours Temperature 99.9 F H 07/09/20 00:00 Temperature Source Axillary 07/09/20 00:00 Pulse Rate 90 07/09/20 04:00 Respiratory Rate 22 07/09/20 00:00 Blood Pressure 141/63 H 07/09/20 00:00 Blood Pressure Mean 89 07/09/20 00:00 Blood Pressure Source Automatic Cuff 07/09/20 00:00 Blood Pressure Position Supine 07/09/20 00:00 02 Sat by Pulse Oximetry 96 07/09/20 05:20 Oxygen Delivery Method 07/09/20 05:20 Oxygen Flow Rate (LPM) 100 07/09/20 05:20 Lab Results for Past 12 Hours 07/09/20 05:27: Specimen Source Right femoral, O2 % 100% nrb, ABG pH 6.99 L*, ABG pCO2 162.6 H, ABG pO2 53.2 L, ABG HCO3 38.0 H, ABG Total CO2 43.0 H, ABG O2 Saturation 74 L*, ABG Base Excess 6.6 H, Bobby Test Patient unable 07/09/20 05:15: WBC 15.5 H D, RBC 5.68 H, Hgb 15.4, Hct 52.8 H, MCV 93.0, MCH 27.2, MCHC 29.3 L, RDW 15.6, Plt Count 250, MPV 7.8, Neut % (Auto) 78.2, Lymph % (Auto) 10.6, [place] % (Auto) 9.0, Eos % (Auto) 0.3, Baso % (Auto) 1.8, Neut # (Auto) 12.1 H, Lymph # (Auto) 1.7, [place] # (Auto) 1.4 H, Eos # (Auto) 0.1, Baso # (Auto) 0.3 H 07/08/20 18:00: Urine Color Yellow, Urine Appearance Sl cloudy, Urine pH 6.0, Ur Specific [place] 1.020, Urine Protein Negative, Urine Glucose (UA) Negative, Urine Ketones Negative, Urine Blood 2+, Urine Nitrate Positive, Urine Bilirubin Negative, Urine Urobilinogen 0.2, Ur Leukocyte Esterase Negative, Urine RBC 5-10, Urine WBC 3-5, Ur Squamous Epith Cells Occasional, Urine Bacteria 4+, Urine Mucus Trace My Orders Category Date Time Status Mcmillan, Insert [Urinary Catheter, Insert] ONCE Care 07/09/20 05:28 Active XR chest portable Stat Exams 07/09/20 05:23 Taken CBC [Complete Blood Count Auto Diff] Stat Lab 07/09/20 05:15 Received CMP [Comprehensive Metabolic Panel] Stat Lab 07/09/20 05:15 Received Lactic Acid Stat Lab 07/09/20 05:15 Received Acetaminophen [Acetaminophen 650mg suppository] Med 07/09/20 05:32 Once 650 mg RC ONCE ONE Cefepime HCl [Maxipime 1gm Vial] 1 gm Med 07/09/20 05:30 Ordered 0.9 % Sodium Chloride [Sod Chloride 0.9% 50mL MB+] 50 ml IV Q12H Levofloxacin/D5w 750 mg/150 ml [Levofloxacin 750mg/ Med 07/09/20 05:45 Ordered 150mL premix] 750 mg in 150 ml IV Q24H Blood Culture Stat Micro 07/09/20 05:26 Ordered ABG [Arterial Blood Gas] Stat RT 07/09/20 05:27 Completed - Radiology Findings #1 Xray Reviewed: Chest Image Reviewed: Yes I reviewed the patient's radiology image ED XR Results: Abnormal (rt lower lobe new and cm with pacemaker) Rapid Response Exam - General General appearance: obtunded - Head Head exam: normocephalic - Eye Eye exam: Present: PERRL, EOMI - ENT ENT exam: Present: mucous membranes dry - Neck Neck exam: Present: trachea midline - Respiratory Respiratory exam: Present: respiratory distress, other (shallow resp with dec bs bilat ) - Cardiovascular Cardiovascular exam: Present: regular rate - Abdominal Exam Abdominal exam: Present: soft - Extremities Exam Extremities exam: Present: pedal edema - Neurological Exam Neurological exam: Present: other (obtunded w/o focal changes and no posturing ) - Skin Skin exam: Absent: rash RR Procedures/Assess/Plan - Additional Bedside Procedures Arterial blood draw: Yes (1) Acute respiratory failure with hypercapnia Status: Acute (2) Severe sepsis with acute organ dysfunction Status: Acute (3) HCAP (healthcare-associated pneumonia) Status: Acute - Assessment and plan all Dx Assessment and Plan for all problems:: pt is do not intubate and has acute resp failure will need bpap and h
[2020-07-09 06:06] LABS: Chloride 95 mmol/L (98-107)
[2020-07-09 06:07] LABS: Potassium 4.6 mmoL/L (3.5-5.1); Sodium 141 mmol/L (136-145)
[2020-07-09 06:09] LABS: Alanine Aminotransferase 59 U/L (12-78); Albumin Level 4.1 g/dl (3.5-5.0); Albumin/Globulin Ratio 1.3 (1.1-1.8); Alkaline Phosphatase 139 U/L (38-126); Anion Gap 16.6 mEq/L (5-15); Aspartate Amino Transferase 65 U/L (14-36); Blood Urea Nitrogen 27 mg/dl (7-17); Calcium 9.1 mg/dl (8.4-10.2); Carbon Dioxide 34 mmol/L (22.0-30.0); Creatinine Clearance Estimated 34 mL/min (50-200); Estimated Glomerular Filt Rate 39 ml/min (>60); GFR (African American) 48 ML/MIN (>60); Globulin 3.2 g/dL (1.3-3.2); Glucose 224 mg/dl (74-100); Total Protein,Serum 7.3 g/dl (6.3-8.2)
--- NOTE | 2020-07-09 06:10 | PC.NURSE ---
Rec'd call from Mabel in the lab stating that the Lactic was 4.0, informed Dr. Orona of said result.
[2020-07-09 06:11] LABS: POC Glucose,Bedside 213 (70-110)
--- NOTE | 2020-07-09 06:31 | PC.NURSE ---
Pt was found unresponsive by other nurse. Rapid response followed by rapid red called. Pt with manual BP 70/45 and was transferred to step-down and started on levophed. Critical ABG given to Dr. Chairez during rapid. She was placed on bipap @ 100% FiO2. At this time she is responsive (facial grimacing) to painful stimuli. BLE mottled to knees. She was febrile during rapid and acetaminophen suppository was administered. Per report, pt had choked on water earlier. Will be made NPO at this time for swallow eval.
--- NOTE | 2020-07-09 06:35 | PC.NURSE ---
Received call from Dr. Orona to administered Lasix 40 mg IV X 1. Patient's B/P found to be automatic 62/34 and manual 70/45. Did not administer the medication. Patient placed in a Step Down where additional interventions were being ordered. Patient transferred to room 217.
[2020-07-09 06:42] LABS: Lymphocytes % 8 % (10-50); Monocytes % 14 % (2-9); Neutrophils % 78 % (42-76); Total Cells Counted 100
[2020-07-09 06:43] LABS: Platelet Estimate Normal; RBC Morphology Normal
--- NOTE | 2020-07-09 07:12 | HMH.SEPSISRE ---
[facility] Tissue Perfusion Eval Sepsis Re-Evaluation Performed: Yes Date Performed: 07/09/20 Time Performed: 07:12
--- NOTE | 2020-07-09 07:13 | HMH.HP ---
*Admission Date: 07/08/20 *Chief complaint: Dyspnea, diminished urine output *History of present illness: 79-year-old white female who follows with a nurse practitioner clinic in [place], [place], who has been diagnosed with CHF and is on chronic Lasix therapy. Her niece reports that over the past week she has had diminished urine output and has been somewhat more lethargic, they called nurse practitioner's office who recommended increasing Lasix about 3 days ago. This was done and for the first day she had increasing urine output and went to the bathroom quite a bit but then this seemed to stop. She then became more breathless through the day yesterday, was slightly confused and was brought to the emergency department. In the emergency department she was noted to be relatively hypoxic even on 3 L nasal cannula, required more oxygen, diagnosis of CHF exacerbation was made with elevated BNP levels and patient was admitted to hospital after having received IV Lasix in the emergency department. Mcmillan catheter was not inserted and urine output measurements have been somewhat erratic. Through the night patient did well until approximately 430 this morning when she had sudden decompensation, unresponsiveness, worsening respiratory status and significant acidosis on blood gas. Nursing staff reports that she might have aspirated on some food yesterday evening. She was made n.p.o., but also had some choking spells on some medication. Rapid response was called-appreciate emergency department physician responding and documentation. Placed on BiPAP, found to be hypotensive and transferred to stepdown unit. I was notified, patient meets criteria for severe sepsis, antibiotics have been started, 30 mg/kg fluid bolus has been started and Levophed has also been started. I reviewed her labs, x-ray films personally and discussed case with family. Patient has maintained a DNI status, we will continue to respect this. I had a conversation with her niece at the bedside regarding her overall condition and prognosis. [facility] History I have reviewed the patient's past medical history: Yes Medical History: Reports:: Atherosclerotic Heart Disease, Atrial Fibrillation, Congestive Heart Failure, Coronary Artery Disease, Gastroesophageal Reflux Disease(GERD), Hyperlipidemia, Hypertension, Internal Pacemaker, Palpitations Denies:: Cancer, Diabetes Mellitus Type 1, Diabetes Mellitus Type 2, MRSA *Have you ever received a pneumonia vaccine?: Yes *Have you received a flu vaccine this season?: Yes Other Medical History: Reports: Arthritis Laterality Cases: Right: Arthroscopy Knee, Bilateral: Carpal Tunnel Release, Other Other Surgeries: Yes: Angioplasty, Appendectomy, Hysterectomy-Total, Hysterectomy-Partial, Pacemaker, Other (Back surgery, Dental implant) Amputation: No Fractures: No - *Social History Last grade of school completed: GED Smoking Status: Never smoker Alcohol Intake: never Substance Use Type: denies use *Occupational Status:: retired Housing: house *Travel in the last 8 weeks: None Family Hx:: Cancer, Heart Attack, Tuberculosis Review of Systems - Review of Systems Review of systems:: unable to obtain Meds Home Medications Medication Instructions Recorded Confirmed Type aspirin 81 mg tablet,delayed 81 mg PO DAILY tab 04/02/17 07/08/20 History release atorvastatin 80 mg tablet 80 mg PO HS #30 tab 09/15/19 07/08/20 Rx digoxin 125 mcg (0.125 mg) tablet 125 mcg PO DAILY #30 tab 09/15/19 07/08/20 Rx rivaroxaban 20 mg tablet 20 mg PO DAILY #30 tab 09/15/19 07/08/20 Rx levothyroxine 50 mcg tablet 50 mcg PO DAILY tab 12/15/19 07/08/20 History ropinirole 0.25 mg tablet 1 mg PO HS tab 03/29/20 07/08/20 History Buspirone HCl [Buspirone 15 mg 15 mg PO BID 07/08/20 07/08/20 History Tablets] Folic Acid 0.8 mg PO DAILY 07/08/20 07/08/20 History Furosemide [Furosemide 80mg Tab] 80 mg PO DAILY 07/08/20 07/08/20 History Ipratropium [place] [Ipratropium
--- NOTE | 2020-07-09 07:14 | PC.NURSE ---
At 0445 this am went to assess patient and check vitals, patient found to unresponsive to painful stimuli and arousal (shouting at patient to wake up. Patient B/P 81/37 and SpO2 59%. Called a Rapid Response at 0456 and a Rapid Red at 0500. Patient placed on a Non Rebreather at 15 L. A Bolus of approximately 300 mL given. B/P 124/67 89 HR 77% Sp02 on non rebreather. Dr. Chairez present for assessment along with warehouse selector Sharona Jara, others in attendance, Angelina Macias, Zander Morse, Evei Cruz, Zander Desai and Angelina Miranda. Orders from MD included Mcmillan Catheter insertion, Blood Cultures, CMP, CBC, CXR, ABG's, Lactic and BiPap. Medications ordered Levaquin 750 mg IV BID, Cefipime 1 Gram Q day. Notified, patient's damir Reese to inquire if she indeed wanted to a DNI and daughter stated that it was her wish not to be intubated. Patient's daughter advised this RN that she could not come because she could not wear a mask. She then stated that she would send a cousin to be with her.
[2020-07-09 07:39] LABS: ABG Base Excess 5.8 mmol/L (-2.4-2.3); ABG HCO3 32.6 mmhg (22.0-26.0); ABG Oxygen Saturation 98 % (90-100); ABG PH 7.28 mmol/L (7.35-7.45); ABG PO2 137.5 mmhg (80-100); ABG TCO2 34.7 mmhg (23-27)
[2020-07-09 07:44] LABS: ABG PCO2 70.7 mmhg (35.0-45.0); Allen's Test Patient Unable; Oxygen 100 %; Pressure Support 10; Source Right Femoral; Vent Rate 24
--- NOTE | 2020-07-09 08:45 | PC.NURSE ---
Verified code status with daughter over the phone. Pt is a DNI. POC updated with daughter.
--- NOTE | 2020-07-09 09:08 | PC.NURSE ---
AM po meds not given. Pt does not open eyes. Will localize to sternal rub. Continues on 100% Bipap. Pharmacy and Dr. Dey aware.
[2020-07-09 09:24] LABS: Reflex Lactic Add Lactic Reflex
[2020-07-09 10:01] LABS: Lactic Acid Follow Up (RFLX 1) 1.9 mmol/L (0.7-2.1)
--- NOTE | 2020-07-09 10:06 | PC.NURSE ---
no response to IV Lasix
--- NOTE | 2020-07-09 10:43 | PC.NURSE ---
received call from daughter (Mary Ann Cevallos). She states that she wants to change pt's code status to DNR. Repeated what she stated and she confirmed. DNR status confirmed with 2nd RN Jane Plaza. Order entered and bracelet applied. Pt's niece continues to remain @ BS.
--- NOTE | 2020-07-09 11:18 | PC.NURSE ---
RT (Martina) decreased FiO2 on Bipap to 80%.
--- NOTE | 2020-07-09 11:22 | HMH.PHAVTE ---
[facility] Pharmacy VTE Monitoring - Patient Demographics Admission date: 07/09/20 Report Date: 07/09/20 Time: 11:23 Allergies/Adverse Reactions: Patient Allergies hydrogen peroxide Allergy (Severe, Verified 07/08/20 18:19) Blister amiodarone [AMIODARONE] Allergy (Unknown, Verified 07/08/20 18:19) Difficulty Breathing Height: 1.57 m Weight: 62.85 kg Patient Problems: Current Active Problems (Last Updated 11/11/18 @ 09:58 by Pippa Orozco RN) CHF exacerbation (Acute) Acute and chronic respiratory failure (Acute) Acute respiratory failure with hypercapnia (Acute) CAP (community acquired pneumonia) (Acute) Severe sepsis with acute organ dysfunction (Acute) HCAP (healthcare-associated pneumonia) (Acute) - VTE Risk Labs: VTE Related Lab Results Hgb 15.4 g/dL (12.2-16.2) 07/09/20 05:15 Hct 52.8 % (37.0-47.0) H 07/09/20 05:15 Plt Count 250 K/mm3 (142-424) 07/09/20 05:15 BUN 27 mg/dl (7-17) H 07/09/20 05:15 Creatinine 1.30 mg/dl (0.52-1.04) H D 07/09/20 05:15 Estimated Creat Clear 34 mL/min (50-200) 07/09/20 05:15 VTE Score: 4 VTE Risk Level: Low Risk - Prophylaxis Types of VTE Prophylaxis: IPCS Thigh High, Pharmacological (XARELTO REORDERED) Location of Applied Device: Not Applicable
--- NOTE | 2020-07-09 11:34 | PC.NURSE ---
Upper and lower dentures taken out as they are visible with Bipap pressure. They are in a denture cup by pt's sink. 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
--- NOTE | 2020-07-09 14:25 | PC.NURSE ---
RT (Martina) decreased FiO2 to 60%.
[2020-07-09 15:25] LABS: Microscopic,Cath URINE MICROSCOPIC (MICROSCOPIC)
--- NOTE | 2020-07-09 15:26 | PC.NURSE ---
pt is answering questions by nodding head yes and no . Denies pain. Shakes head yes when asked if she's comfortable.
[2020-07-09 15:34] LABS: Appearance,Urine/Cath CLOUDY (Clear); Bilirubin,Cath Negative (Negative); Blood, Urine/Cath 2+ (Negative); Color,Urine/Cath YELLOW (Yellow); Glucose,Urine/Cath (UA) Negative (Negative); Ketones,Urine/Cath Negative (Negative); Leukocyte Esterase,Cath Negative (Negative); Nitrate,Cath POSITIVE (Negative); PH,Urine/Cath 5.5 (5.0-8.5); Protein,Urine/Cath 2+ (Negative); Specific Gravity, Urine/Cath >= 1.030 (1.005-1.030); Urobilinogen,Cath 0.2 EU/dl (0.2)
--- NOTE | 2020-07-09 15:41 | PC.NURSE ---
received call from lab ([facility]) stating that they do not have an order for the urine that was sent down this morning around 0545. Order entered for UA.
[2020-07-09 15:44] LABS: Bacteria,Urine/Cath 2+ /lpf; RBC,Urine/Cath Occasional # /hpf (0-3); Squamous Epithelial Ur./Cath 20-50 #/hpf (0-5); WBC,Urine/Cath Occasional #/hpf (0-3)
--- NOTE | 2020-07-09 15:54 | PC.NURSE ---
BP 147/57 (87). Levo gtt decreased to 5mcg/min from 10mcg/min. Pt is more awake and asking for sips of water. Swabbed mouth with wet sponges.
--- NOTE | 2020-07-09 17:07 | PC.NURSE ---
FiO2 decreased to 40%. O2 sat 96%. Pt remains A&O. Talking clearly and asking for sips of water.
--- NOTE | 2020-07-09 18:13 | PC.NURSE ---
pt is agitated and wanting Bipap mask off. BP 175/81 (112). Levo gtt turned OFF.
--- NOTE | 2020-07-09 18:40 | PC.NURSE ---
BP dropped to 80/36 (50). Levo gtt turned back on at 5mcg/min
--- NOTE | 2020-07-09 18:58 | PC.NURSE ---
O2 sat 88%. FiO2 increased 50%.
--- NOTE | 2020-07-09 23:41 | PC.NURSE ---
Respiratory attempted to wean her off of bipap to 6LPM n/c and 50% venti but was unsuccessful. Per Dr. Dey, keep O2 sats >88%. She was placed back on the bipap at 50% FiO2. She continues on levophed which had to be increased while she slept.
[2020-07-10] VITALS (23 sets, daily range): BP systolic 83–128; BP diastolic 41–64; PULSE 72–92; RESP 20–37; TEMP 36.9–37.5; O2SAT 94–99; BMI 26.2
--- NOTE | 2020-07-10 05:16 | PC.NURSE ---
ice passed trash and linens picked up. pt had no other needs.KSaiM
--- NOTE | 2020-07-10 06:27 | PC.NURSE ---
Levophed weaned to 2mcg/min at 0600.
--- NOTE | 2020-07-10 08:04 | PC.NURSE ---
notified Dr. Dey of positive blood cx: Staph A no meca A detected
--- NOTE | 2020-07-10 08:12 | PC.NURSE ---
BP 115/63 (80). Levo gtt turned OFF.
--- NOTE | 2020-07-10 08:41 | HMH.ACPN2 ---
Internal Medicine - PN: Subj *Date: 07/10/20 *Time: 08:41 Interval history: Patient was fairly stable overnight, blood pressures have normalized, Levophed drip has been able to be discontinued and patient's blood pressure after 45 minutes off Levophed drip remains in the 120 systolic range. Blood cultures overnight have shown staph, no M ECA detected. Urine cultures from admission have grown E. coli, pansensitive. Exam Vital signs and Labs for Last 24 Hours: Temp Pulse Resp BP Pulse Ox 99.5 F 83 30 H 113/42 L 98 07/10/20 07:54 07/10/20 08:14 07/10/20 06:00 07/10/20 06:45 07/10/20 06:45 Laboratory Results - last 24 hr 07/09/20 05:44: Urine Color Yellow, Urine Appearance Cloudy, Urine pH 5.5, Ur Specific [place] >= 1.030, Urine Protein 2+, Urine Glucose (UA) Negative, Urine Ketones Negative, Urine Blood 2+, Urine Nitrate Positive, Urine Bilirubin Negative, Urine Urobilinogen 0.2, Ur Leukocyte Esterase Negative, Urine RBC Occasional, Urine WBC Occasional, Ur Squamous Epith Cells 20-50, Urine Bacteria 2+ A, Hyaline Casts 3-5 07/09/20 09:45: Lactate 1.9 I & O for Last 24 hours: Intake & Output 07/07/20 07/08/20 07/09/20 07/10/20 11:59 11:59 11:59 11:59 Intake Total 0 / 0 2674.88 / 2674.88 Output Total 350 / 350 Balance 0 / 0 2324.88 / 2324.88 Weight 138 lb 8.968 oz 142 lb 2 oz Microbiology Reports for the Last 24 Hours: Microbiology 07/09/20 05:20 Blood Blood Culture - Preliminary 07/08/20 18:00 Urine,Clean Catch Urine Culture - Final Escherichia coli 07/09/20 05:44 Urine,Catheterized Urine Culture - Preliminary Gram Negative Rods Narrative: Patient remains on BiPAP at lower settings. Blood pressure is normal, pulse rate in the 90s, pacemaker is appropriately kicking and when rate drops. Patient is more responsive to tactile and verbal stimuli. Lungs with rhonchi bilaterally. Abdomen soft, heart rate as noted on monitor. Minimal edema in extremities. Moves all extremities spontaneously. No significant skin breakdown or bruising noted other than from IV sites expected. Assessment and Plan (1) Acute respiratory failure with hypercapnia Status: Acute Category: Medical Code(s): J96.02 - Acute respiratory failure with hypercapnia (2) Severe sepsis with acute organ dysfunction Status: Acute Category: Medical Code(s): A41.9 - Sepsis, unspecified organism; R65.20 - Severe sepsis without septic shock (3) HCAP (healthcare-associated pneumonia) Status: Acute Category: Medical Code(s): J18.9 - Pneumonia, unspecified organism (4) CHF exacerbation Status: Acute Qualifiers: Heart failure type: unspecified Qualified Code(s): I50.9 - Heart failure, unspecified Category: Medical Code(s): I50.9 - Heart failure, unspecified (5) CAP (community acquired pneumonia) Status: Acute Qualifiers: Laterality: right Lung location: lower lobe of lung Qualified Code(s): J18.9 - Pneumonia, unspecified organism Category: Medical Code(s): J18.9 - Pneumonia, unspecified organism - Assessment and plan all Dx Assessment and Plan for all problems:: Plan will be to continue broad-spectrum antibiotics. Add vancomycin because of staph in blood, pharmacy consulted. Continue to wean BiPAP. Pressors have been weaned off. Continue to respect DNR status. Labs pending from this morning.
--- NOTE | 2020-07-10 09:19 | HMH.PHACONS ---
- Pharmacy Consult Date: 07/10/20 Time: 09:19 Referring provider: DR. ELLIS Reason for Consult:: ONCE TIME VANCOMYCIN DOSE Allergies and ADEs:: Allergies Allergy/AdvReac Type Severity Reaction Status Date / Time hydrogen peroxide Allergy Severe Blister Verified 07/08/20 18:19 amiodarone [AMIODARONE] Allergy Unknown Difficulty Verified 07/08/20 18:19 Breathing Home Medications:: Home Medications Medication Instructions Recorded Confirmed Type aspirin 81 mg tablet,delayed 81 mg PO DAILY tab 04/02/17 07/08/20 History release atorvastatin 80 mg tablet 80 mg PO HS #30 tab 09/15/19 07/08/20 Rx digoxin 125 mcg (0.125 mg) tablet 125 mcg PO DAILY #30 tab 09/15/19 07/08/20 Rx rivaroxaban 20 mg tablet 20 mg PO DAILY #30 tab 09/15/19 07/08/20 Rx levothyroxine 50 mcg tablet 50 mcg PO DAILY tab 12/15/19 07/08/20 History ropinirole 0.25 mg tablet 1 mg PO HS tab 03/29/20 07/08/20 History Buspirone HCl [Buspirone 15 mg 15 mg PO BID 07/08/20 07/08/20 History Tablets] Folic Acid 0.8 mg PO DAILY 07/08/20 07/08/20 History Furosemide [Furosemide 80mg Tab] 80 mg PO DAILY 07/08/20 07/08/20 History Ipratropium [place] [Ipratropium 2 spray NS BID 07/08/20 07/08/20 History [place] 0.021mg/act NS] Ropinirole HCl 0.5 mg PO DAILY 07/08/20 07/09/20 History bisoproloL fumarate [Bisoprolol 10 mg PO DAILY 07/08/20 07/08/20 History 10mg Tablet] dilTIAZem HCL [Cartia Xt] 180 mg PO DAILY 07/08/20 07/08/20 History Fluticasone Propionate 2 sprays INHALATION DAILY 07/09/20 07/09/20 History Height: 1.57 m Weight: 64.467 kg Laboratory Results:: Laboratory Results - last 24 hr 07/09/20 05:44: Urine Color Yellow, Urine Appearance Cloudy, Urine pH 5.5, Ur Specific [place] >= 1.030, Urine Protein 2+, Urine Glucose (UA) Negative, Urine Ketones Negative, Urine Blood 2+, Urine Nitrate Positive, Urine Bilirubin Negative, Urine Urobilinogen 0.2, Ur Leukocyte Esterase Negative, Urine RBC Occasional, Urine WBC Occasional, Ur Squamous Epith Cells 20-50, Urine Bacteria 2+ A, Hyaline Casts 3-5 07/09/20 09:45: Lactate 1.9 Medical History: Reports:: Atherosclerotic Heart Disease, Atrial Fibrillation, Congestive Heart Failure, Coronary Artery Disease, Gastroesophageal Reflux Disease(GERD), Hyperlipidemia, Hypertension, Internal Pacemaker, Palpitations Denies:: Cancer, Diabetes Mellitus Type 1, Diabetes Mellitus Type 2, MRSA Assessment and Plan (1) Acute respiratory failure with hypercapnia Status: Acute Category: Medical Code(s): J96.02 - Acute respiratory failure with hypercapnia (2) Severe sepsis with acute organ dysfunction Status: Acute Category: Medical Code(s): A41.9 - Sepsis, unspecified organism; R65.20 - Severe sepsis without septic shock (3) HCAP (healthcare-associated pneumonia) Status: Acute Category: Medical Code(s): J18.9 - Pneumonia, unspecified organism (4) CHF exacerbation Status: Acute Qualifiers: Heart failure type: unspecified Qualified Code(s): I50.9 - Heart failure, unspecified Category: Medical Code(s): I50.9 - Heart failure, unspecified (5) CAP (community acquired pneumonia) Status: Acute Qualifiers: Laterality: right Lung location: lower lobe of lung Qualified Code(s): J18.9 - Pneumonia, unspecified organism Category: Medical Code(s): J18.9 - Pneumonia, unspecified organism - Assessment and plan all Dx Assessment and Plan for all problems:: Age: 79 yo Serum creatinine: 1.3 mg/dL Height: 61.8 Inches Weight (kg): 64.5 Assessment: IBW (kg): 49.64 Dosing wt(kg): 64.5 Estimated Creatinine clearance (ml/min): 26.6 CRCL method: Cockcroft and Gault using ibw(default). Drug selected: Vancomycin Loading dose (mg): 0 Vd (liters): 51.6 (factor used: 0.8 L/kg) Lazaro (hr-1): 0.026 Half life (hrs): 26.66 Recommended dose: 1250 mg Interval: 36 hrs Infusion time (hrs): 2.0 Predicted peak (mcg/mL): 38.8
[2020-07-10 10:17] LABS: Basophils # 0.1 K/mm3 (0-0.2); Basophils % 0.6 % (0.1-2.0); Eosinophils # 0.1 K/mm3 (0.0-0.4); Eosinophils % 0.9 % (0.1-12.0); Hematocrit 41.4 % (37.0-47.0); Hemoglobin 12.9 g/dL (12.2-16.2); Lymphocytes # 0.9 K/mm3 (0.7-4.5); Lymphocytes % 9.5 % (10-50); Mean Corpuscular HGB Conc 31.2 g/dL (31.8-35.4); Mean Corpuscular Hemoglobin 27.6 pg (27.0-31.2); Mean Corpuscular Volume 88.2 fl (81-99); Mean Platelet Volume 7.5 fl (7.4-10.4); Monocytes # 0.7 K/mm3 (0.1-1.0); Monocytes % 7.6 % (1.7-9.3); Neutrophils # 7.3 K/mm3 (1.8-7.8); Neutrophils % 81.4 % (37.0-80.0); Platelet Count 157 K/mm3 (142-424); Red Blood Count 4.69 M/mm3 (4.20-5.40); Red Cell Distribution Width 16.2 % (11.5-17.5); White Blood Count 8.9 K/mm3 (4.8-10.8)
[2020-07-10 10:27] LABS: Chloride 102 mmol/L (98-107); Potassium 4.4 mmoL/L (3.5-5.1); Sodium 141 mmol/L (136-145)
[2020-07-10 10:30] LABS: Anion Gap 8.4 mEq/L (5-15); Blood Urea Nitrogen 43 mg/dl (7-17); Carbon Dioxide 35 mmol/L (22.0-30.0); Creatinine Clearance Estimated 41 mL/min (50-200); Estimated Glomerular Filt Rate 48 ml/min (>60); GFR (African American) 58 ML/MIN (>60); Glucose 120 mg/dl (74-100)
[2020-07-10 10:32] LABS: Calcium 8.1 mg/dl (8.4-10.2)
--- NOTE | 2020-07-10 13:00 | PC.NURSE ---
Bipap decreased to 40% FiO2
[2020-07-11] VITALS (20 sets, daily range): BP systolic 99–134; BP diastolic 44–61; PULSE 70–96; RESP 18–28; TEMP 36.6–36.8; O2SAT 88–99; BMI 26.2
--- NOTE | 2020-07-11 04:02 | PC.NURSE ---
pt has remained off levophed gtt and bp has maintained. welsh draining yellow urine. iv patent. bipap at 40%. vss. no acute changes. q2h turn. call light in reach. will continue to monitor.
[2020-07-11 06:38] LABS: Basophils # 0.1 K/mm3 (0-0.2); Basophils % 0.7 % (0.1-2.0); Eosinophils # 0.1 K/mm3 (0.0-0.4); Eosinophils % 1.7 % (0.1-12.0); Hematocrit 39.5 % (37.0-47.0); Hemoglobin 12.2 g/dL (12.2-16.2); Lymphocytes % 11.8 % (10-50); Mean Corpuscular Hemoglobin 27.6 pg (27.0-31.2); Mean Platelet Volume 8.4 fl (7.4-10.4); Monocytes # 0.8 K/mm3 (0.1-1.0); Monocytes % 10.3 % (1.7-9.3); Neutrophils # 6.2 K/mm3 (1.8-7.8); Neutrophils % 75.5 % (37.0-80.0); Platelet Count 158 K/mm3 (142-424); Red Blood Count 4.44 M/mm3 (4.20-5.40); Red Cell Distribution Width 16.1 % (11.5-17.5); White Blood Count 8.2 K/mm3 (4.8-10.8)
[2020-07-11 06:42] LABS: Chloride 104 mmol/L (98-107); Sodium 143 mmol/L (136-145)
[2020-07-11 06:45] LABS: Blood Urea Nitrogen 32 mg/dl (7-17); Carbon Dioxide 35 mmol/L (22.0-30.0); Creatinine Clearance Estimated 45 mL/min (50-200); Estimated Glomerular Filt Rate 60 ml/min (>60); GFR (African American) 73 ML/MIN (>60)
[2020-07-11 06:46] LABS: Calcium 8.4 mg/dl (8.4-10.2); Glucose 76 mg/dl (74-100)
--- NOTE | 2020-07-11 07:36 | HMH.ACPN2 ---
Internal Medicine - PN: Subj *Date: 07/11/20 *Time: 07:37 Interval history: No acute events. Patient has been weaned from Levophed drip. FiO2 on BiPAP is slowly been weaned down to 40%. Patient is oxygen dependent at home on 3 L/min via nasal cannula Exam Vital signs and Labs for Last 24 Hours: Temp Pulse Resp BP Pulse Ox 97.8 F 80 21 120/46 L 99 07/11/20 06:00 07/11/20 06:00 07/11/20 06:00 07/11/20 06:00 07/11/20 06:00 Laboratory Results - last 24 hr 07/10/20 09:53: WBC 8.9 D, RBC 4.69, Hgb 12.9, Hct 41.4, MCV 88.2, MCH 27.6, MCHC 31.2 L, RDW 16.2, Plt Count 157 D, MPV 7.5, Neut % (Auto) 81.4 H, Lymph % (Auto) 9.5 L, [place] % (Auto) 7.6, Eos % (Auto) 0.9, Baso % (Auto) 0.6, Neut # (Auto) 7.3, Lymph # (Auto) 0.9, [place] # (Auto) 0.7, Eos # (Auto) 0.1, Baso # (Auto) 0.1 07/10/20 09:53: Sodium 141, Potassium 4.4, Chloride 102, Carbon Dioxide 35 H, Anion Gap 8.4, BUN 43 H D, Creatinine 1.10 H, Estimated Creat Clear 41, Estimated GFR 48 L, Est GFR ( Amer) 58 L D, Glucose 120 H, Calcium 8.1 L D 07/11/20 05:30: WBC 8.2, RBC 4.44, Hgb 12.2, Hct 39.5, MCV 89.0, MCH 27.6, MCHC 31.0 L, RDW 16.1, Plt Count 158, MPV 8.4, Neut % (Auto) 75.5, Lymph % (Auto) 11.8, [place] % (Auto) 10.3 H, Eos % (Auto) 1.7, Baso % (Auto) 0.7, Neut # (Auto) 6.2, Lymph # (Auto) 1.0, [place] # (Auto) 0.8, Eos # (Auto) 0.1, Baso # (Auto) 0.1 07/11/20 05:30: Sodium 143, Potassium 4.0, Chloride 104, Carbon Dioxide 35 H, Anion Gap 8.0, BUN 32 H D, Creatinine 0.90, Estimated Creat Clear 45, Estimated GFR 60, Est GFR ( Amer) 73 D, Glucose 76 D, Calcium 8.4 I & O for Last 24 hours: Intake & Output 07/08/20 07/09/20 07/10/20 07/11/20 11:59 11:59 11:59 11:59 Intake Total 0 / 0 2674.88 / 2674.88 545 / 545 Output Total 350 / 350 650 / 650 Balance 0 / 0 2324.88 / 2324.88 -105 / -105 Weight 138 lb 8.968 oz 142 lb 2 oz 142 lb 2 oz Microbiology Reports for the Last 24 Hours: Microbiology 07/09/20 05:20 Blood Blood Culture - Preliminary NO GROWTH AFTER 48 HOURS 07/09/20 05:20 Blood Blood Culture - Preliminary 07/08/20 18:00 Urine,Clean Catch Urine Culture - Final Escherichia coli 07/09/20 05:44 Urine,Catheterized Urine Culture - Preliminary Gram Negative Rods - Constitutional no acute distress - *Routine Respiratory Exam Present: distant breath sounds - *Routine Cardiovascular Exam Present: RRR - *Routine Extremities Exam Absent: edema Assessment and Plan (1) Acute respiratory failure with hypercapnia Status: Acute Category: Medical Code(s): J96.02 - Acute respiratory failure with hypercapnia (2) Severe sepsis with acute organ dysfunction Status: Acute Category: Medical Code(s): A41.9 - Sepsis, unspecified organism; R65.20 - Severe sepsis without septic shock (3) HCAP (healthcare-associated pneumonia) Status: Acute Category: Medical Code(s): J18.9 - Pneumonia, unspecified organism (4) CHF exacerbation Status: Acute Qualifiers: Heart failure type: unspecified Qualified Code(s): I50.9 - Heart failure, unspecified Category: Medical Code(s): I50.9 - Heart failure, unspecified (5) CAP (community acquired pneumonia) Status: Acute Qualifiers: Laterality: right Lung location: lower lobe of lung Qualified Code(s): J18.9 - Pneumonia, unspecified organism Category: Medical Code(s): J18.9 - Pneumonia, unspecified organism - Assessment and plan all Dx Assessment and Plan for all problems:: 1. Wean BiPAP 2. Continue broad-spectrum antibiotic coverage to cover pneumonia and her urinary tract infection 3. Start DuoNebs 4 times daily
--- NOTE | 2020-07-11 17:57 | PC.NURSE ---
[address] tijerina that the pt has been moved to vapotherm and her sats have remained in the upper 80's. per md as long as the pt is comfortable it is ok to move her out of stepdown,. pt has appeared to rest comfortably this shift. lungs are extremely diminished. bowel sounds are active. nad noted.
--- NOTE | 2020-07-11 23:36 | PC.NURSE ---
pt refused to wear bipap
[2020-07-12] VITALS (17 sets, daily range): BP systolic 110–154; BP diastolic 58–64; PULSE 69–83; RESP 20–30; TEMP 36.4–36.7; O2SAT 84–96; BMI 25.7
--- NOTE | 2020-07-12 03:31 | PC.NURSE ---
A&OX4; ABLE TO STATE NEEDS. VAPOTHERM 40LPM 50% WITH O2 SAT 90-93%. PT. HAS NOT C/O PAIN, N/V/D, DIZZINESS AND DENIES SOA. Q2H T/R. FC DRAINING BRIGHT YELLOW URINE.
--- NOTE | 2020-07-12 07:09 | HMH.ACPN2 ---
Internal Medicine - PN: Subj *Date: 07/12/20 *Time: 07:09 Interval history: Patient has no new complaints. She desires discharge to home. Shortness of breath is improving. She remains on Vapotherm with FiO2 of 50%. Exam Vital signs and Labs for Last 24 Hours: Temp Pulse Resp BP Pulse Ox 98.1 F 83 29 H 117/64 91 L 07/12/20 03:57 07/12/20 06:25 07/12/20 03:57 07/12/20 03:57 07/12/20 06:25 I & O for Last 24 hours: Intake & Output 07/09/20 07/10/20 07/11/20 07/12/20 11:59 11:59 11:59 11:59 Intake Total 0 / 0 2674.88 / 2674.88 545 / 545 150 / 150 Output Total 350 / 350 1300 / 1300 800 / 800 Balance 0 / 0 2324.88 / 2324.88 -755 / -755 -650 / -650 Weight 138 lb 8.968 oz 142 lb 2 oz 142 lb 2 oz 139 lb 9 oz Microbiology Reports for the Last 24 Hours: Microbiology 07/09/20 05:20 Blood Blood Culture - Preliminary Gram Positive Cocci 07/09/20 05:44 Urine,Catheterized Urine Culture - Final Escherichia coli 07/09/20 05:20 Blood Blood Culture - Preliminary NO GROWTH AFTER 48 HOURS Narrative: She is in no distress. No increased work of breathing. She has poor aeration with distant breath sounds. Heart rate is irregular. Abdomen is soft. Extremities have no edema Assessment and Plan (1) Acute respiratory failure with hypercapnia Status: Acute Category: Medical Code(s): J96.02 - Acute respiratory failure with hypercapnia (2) Severe sepsis with acute organ dysfunction Status: Acute Category: Medical Code(s): A41.9 - Sepsis, unspecified organism; R65.20 - Severe sepsis without septic shock (3) HCAP (healthcare-associated pneumonia) Status: Acute Category: Medical Code(s): J18.9 - Pneumonia, unspecified organism (4) CHF exacerbation Status: Acute Qualifiers: Heart failure type: unspecified Qualified Code(s): I50.9 - Heart failure, unspecified Category: Medical Code(s): I50.9 - Heart failure, unspecified (5) CAP (community acquired pneumonia) Status: Acute Qualifiers: Laterality: right Lung location: lower lobe of lung Qualified Code(s): J18.9 - Pneumonia, unspecified organism Category: Medical Code(s): J18.9 - Pneumonia, unspecified organism - Assessment and plan all Dx Assessment and Plan for all problems:: 1. Continue to wean oxygen as tolerated 2. Add prednisone 20 mg daily 3. Advance diet
--- NOTE | 2020-07-12 09:33 | HMH.ACPN ---
Internal Medicine - PN: Subj *Date: 07/12/20 *Time: 09:33 Exam Vital signs and Labs for Last 24 Hours: Temp Pulse Resp BP Pulse Ox 97.8 F 75 25 H 154/61 H 94 L 07/12/20 07:39 07/12/20 08:40 07/12/20 07:39 07/12/20 07:39 07/12/20 08:00 I & O for Last 24 hours: Intake & Output 07/09/20 07/10/20 07/11/20 07/12/20 23:59 23:59 23:59 23:59 Intake Total 2507.88 / 2507.88 632 / 662 230 / 230 Output Total 150 / 350 850 / 850 650 / 650 800 / 800 Balance 2357.88 / 2157.88 -218 / -188 -420 / -420 -800 / -800 Weight 62.85 kg 64.467 kg 64.467 kg 63.304 kg Microbiology Reports for the Last 24 Hours: Microbiology 07/09/20 05:20 Blood Blood Culture - Preliminary Staphylococcus epidermidis 07/09/20 05:44 Urine,Catheterized Urine Culture - Final Escherichia coli 07/09/20 05:20 Blood Blood Culture - Preliminary NO GROWTH AFTER 48 HOURS Assessment and Plan (1) Acute respiratory failure with hypercapnia Status: Acute Category: Medical Code(s): J96.02 - Acute respiratory failure with hypercapnia (2) Severe sepsis with acute organ dysfunction Status: Acute Category: Medical Code(s): A41.9 - Sepsis, unspecified organism; R65.20 - Severe sepsis without septic shock (3) HCAP (healthcare-associated pneumonia) Status: Acute Category: Medical Code(s): J18.9 - Pneumonia, unspecified organism (4) CHF exacerbation Status: Acute Qualifiers: Heart failure type: unspecified Qualified Code(s): I50.9 - Heart failure, unspecified Category: Medical Code(s): I50.9 - Heart failure, unspecified (5) CAP (community acquired pneumonia) Status: Acute Qualifiers: Laterality: right Lung location: lower lobe of lung Qualified Code(s): J18.9 - Pneumonia, unspecified organism Category: Medical Code(s): J18.9 - Pneumonia, unspecified organism The patient's infection will respond to the chosen ABx?: Yes Is the patient receiving the right drug, dose, and route?: Yes Could a more targeted ABx be ordered?: No
--- NOTE | 2020-07-12 14:30 | PC.NURSE ---
Patient has been pleasant and cooperative this shift, remains on vapotherm at 40L/50%, O2 saturations 91-96%, reports she still feels mildly short of air but has improved since admission, pt is alert and oriented x3, perrla, skein bleacher weak but equal, HR reg, no edema noted, peripheral pulses 2+, TONY hose in place bilaterally, FC patent and draining clear yellow urine at bedside, pt has been turned q2h this shift, lung sounds diminished in BL bases, denies any pain, no s/s of distress noted, vss, will continue to monitor for changes.
--- NOTE | 2020-07-12 16:36 | HMH.PHAINT ---
DISCUSSED BLOOD CX WITH DR. GALO. DR. ELLIS JUST WANTED 1X DOSE OF VANCOMYCIN FOR POSSIBLE POSITIVE BLOOD CX OVER THE WEEKEND. NO FURTHER DOSES AT THIS TIME PER MD.
--- NOTE | 2020-07-12 20:15 | PC.NURSE ---
INCREASED FIO2 TO 55%
[2020-07-13] VITALS (14 sets, daily range): BP systolic 110–125; BP diastolic 55–67; PULSE 70–89; RESP 18–32; TEMP 36.3–36.6; O2SAT 85–99; BMI 26.0
--- NOTE | 2020-07-13 01:52 | PC.NURSE ---
She is A&O. She has an intermittent, non-productive cough. She reported restless legs. F/c patent with dark yellow, cloudy urine. AV paced on telemetry. Vapotherm settings: 40LPM 55% FiO2.
--- NOTE | 2020-07-13 03:32 | PC.NURSE ---
PT IS ON 2L N/C NOW
[2020-07-13 05:27] LABS: Chloride 101 mmol/L (98-107)
[2020-07-13 05:28] LABS: Potassium 3.8 mmoL/L (3.5-5.1); Sodium 138 mmol/L (136-145)
[2020-07-13 05:31] LABS: Anion Gap 7.8 mEq/L (5-15); Blood Urea Nitrogen 23 mg/dl (7-17); Calcium 8.6 mg/dl (8.4-10.2); Carbon Dioxide 33 mmol/L (22.0-30.0); Creatinine Clearance Estimated 45 mL/min (50-200); Estimated Glomerular Filt Rate 69 ml/min (>60); GFR (African American) 83 ML/MIN (>60); Glucose 127 mg/dl (74-100)
[2020-07-13 05:33] LABS: Basophils % 0.5 % (0.1-2.0); Eosinophils # 0.2 K/mm3 (0.0-0.4); Eosinophils % 1.8 % (0.1-12.0); Hematocrit 44.5 % (37.0-47.0); Hemoglobin 13.8 g/dL (12.2-16.2); Lymphocytes # 1.1 K/mm3 (0.7-4.5); Lymphocytes % 11.7 % (10-50); Mean Corpuscular HGB Conc 31.1 g/dL (31.8-35.4); Mean Corpuscular Hemoglobin 27.7 pg (27.0-31.2); Mean Platelet Volume 7.5 fl (7.4-10.4); Monocytes # 1.1 K/mm3 (0.1-1.0); Neutrophils % 74.1 % (37.0-80.0); Platelet Count 161 K/mm3 (142-424); Red Blood Count 4.99 M/mm3 (4.20-5.40); Red Cell Distribution Width 16.4 % (11.5-17.5); White Blood Count 9.5 K/mm3 (4.8-10.8)
--- NOTE | 2020-07-13 06:35 | PC.NURSE ---
Labored breathing. Respiratory's pulse ox read differently from the sat that was obtained from her forehead. O2 sat on room monitor was 96% while portable pulse ox was 86-87%.
--- NOTE | 2020-07-13 07:10 | P.PN_ITS ---
Internal Medicine - PN: Subj *Date: 07/13/20 *Time: 07:10 Interval history: No acute events in the last 24 hours. Patient remains on Vapotherm with O2 sats in the high 80s to low 90s. Patient denies shortness of breath this morning Exam Vital signs and Labs for Last 24 Hours: Temp Pulse Resp BP Pulse Ox 97.4 F L 70 28 H 116/55 L 99 07/13/20 04:00 07/13/20 04:00 07/13/20 04:00 07/13/20 04:00 07/13/20 04:00 Laboratory Results - last 24 hr 07/13/20 05:10: WBC 9.5, RBC 4.99, Hgb 13.8, Hct 44.5, MCV 89.0, MCH 27.7, MCHC 31.1 L, RDW 16.4, Plt Count 161, MPV 7.5, Neut % (Auto) 74.1, Lymph % (Auto) 11.7, [place] % (Auto) 12.0 H, Eos % (Auto) 1.8, Baso % (Auto) 0.5, Neut # (Auto) 7.0, Lymph # (Auto) 1.1, [place] # (Auto) 1.1 H, Eos # (Auto) 0.2, Baso # (Auto) 0.0 07/13/20 05:10: Sodium 138, Potassium 3.8, Chloride 101, Carbon Dioxide 33 H, Anion Gap 7.8, BUN 23 H D, Creatinine 0.80, Estimated Creat Clear 45, Estimated GFR 69, Est GFR ( Amer) 83, Glucose 127 H, Calcium 8.6 I & O for Last 24 hours: Intake & Output 07/10/20 07/11/20 07/12/20 07/13/20 11:59 11:59 11:59 11:59 Intake Total 2674.88 / 2674.88 545 / 545 150 / 150 310 / 310 Output Total 350 / 350 1300 / 1300 800 / 800 500 / 500 Balance 2324.88 / 2324.88 -755 / -755 -650 / -650 -190 / -190 Weight 142 lb 2 oz 142 lb 2 oz 139 lb 9 oz 141 lb 7 oz Microbiology Reports for the Last 24 Hours: Microbiology 07/09/20 05:20 Blood Blood Culture - Preliminary Staphylococcus epidermidis - Constitutional no acute distress - *Routine Respiratory Exam Present: decreased breath sounds, diminished air movement - *Routine Cardiovascular Exam Present: RRR - *Routine Abdominal Exam Present: soft. Absent: tenderness Assessment and Plan (1) Acute respiratory failure with hypercapnia Status: Acute Category: Medical Code(s): J96.02 - Acute respiratory failure with hypercapnia (2) Severe sepsis with acute organ dysfunction Status: Acute Category: Medical Code(s): A41.9 - Sepsis, unspecified organism; R65.20 - Severe sepsis without septic shock (3) HCAP (healthcare-associated pneumonia) Status: Acute Category: Medical Code(s): J18.9 - Pneumonia, unspecified organism (4) CHF exacerbation Status: Acute Qualifiers: Heart failure type: unspecified Qualified Code(s): I50.9 - Heart failure, unspecified Category: Medical Code(s): I50.9 - Heart failure, unspecified (5) CAP (community acquired pneumonia) Status: Acute Qualifiers: Laterality: right Lung location: lower lobe of lung Qualified Code(s): J18.9 - Pneumonia, unspecified organism Category: Medical Code(s): J18.9 - Pneumonia, unspecified organism - Assessment and plan all Dx Assessment and Plan for all problems:: 1. Continue broad-spectrum antibiotics along with oral steroids. 2. Continue to wean oxygen with goal being 3 L/min via the nasal cannula. Incentive spirometry will be ordered
--- NOTE | 2020-07-13 13:12 | SW/DCPLANNER ---
PATIENT CONTINUES TO BE ON VAPOTHERM, SHE IS ALERT AND ORIENTED AND WAS DISAPPOINTED THAT DR GALO TOLD HER SHE WAS NOT READY TO GO HOME... WEANING HAS NOT BEEN A SUCCESS SO FAR...PATIENT RESIDES AT HOME AND WAS BROUGHT HERE TO [facility] BUT HAS A DOCTOR IN [place].. WILL BE MONITORING PATIENT FOR ANY HOME CARE OR SKILLED PLACEMENT SHE MAY NEED AT TIME OF DISCHARGE.. DISPOSITION UNCERTAIN...
--- NOTE | 2020-07-13 15:39 | DIET.NUTRFU ---
Addendum entered by Radha Norris 07/20/20 15:51: Continues with PO intakes around 50% + TID supplements. Continues to be require full assistance, encouragement/cueing appreciated. Per nursing some swallowing difficulty, [employer] MANAGER[employer]PERVISOR saw her today and recommended soft mechanical diet. She had a BM yesterday. Volume overload noted, pt receiving diuretics, weight down 6#. No added salt added to diet order at this time, will monitor and alter as indicated. Addendum entered by Radha Norris 07/18/20 17:51: Improvement PO intakes past 48h- 50% + TID supplements. She drinks majority of her supplements and responds well to encouragement/cueing. Continues to require full assistance. Weight stable. Still had not had a BM since 07/10. Continuing to monitor. Addendum entered by Radha Norris 07/15/20 14:46: Decrease in PO intakes with SOA/AMS last 24h but improving. Continues to be a total dependent feeder, encouragement/cueing appreciated. Ensure TID on diet order, continues on regular diet with soft modifications for ease of eating. Weight stable, no BM since 07/10. Continuing to monitor. Original Note: Pt is in good spirits and eating okay- 75%, weight stable, bowels normal. She likes ensure, on diet order TID. She does require assistance feeding, encouragement/cueing at meal times appreciated.
[2020-07-14] VITALS (14 sets, daily range): BP systolic 106–146; BP diastolic 63–73; PULSE 64–81; RESP 11–31; TEMP 36.3–37.3; O2SAT 85–100; BMI 26.0
--- NOTE | 2020-07-14 01:19 | PC.NURSE ---
Educated on use of incentive spirometer. Needs reinforcement and help with holding it. She continues on vapotherm at 40LPM FiO2 90%. She has a non-productive cough. She received PRN acetaminophen for a headache.
--- NOTE | 2020-07-14 07:44 | HMH.ACPN2 ---
Internal Medicine - PN: Subj *Date: 07/14/20 *Time: 07:44 Interval history: No acute events overnight. Staff reports patient was awake most of the night and has only fallen asleep this morning. Patient herself is arousable and denies pain or shortness of breath. She is very difficult to awaken. Patient has noted increased work of breathing Exam Vital signs and Labs for Last 24 Hours: Temp Pulse Resp BP Pulse Ox 98.0 F 73 26 H 106/67 L 91 L 07/14/20 04:00 07/14/20 06:09 07/14/20 04:00 07/14/20 04:00 07/14/20 06:09 I & O for Last 24 hours: Intake & Output 07/11/20 07/12/20 07/13/20 07/14/20 11:59 11:59 11:59 11:59 Intake Total 545 / 545 150 / 150 670 / 670 500 / 500 Output Total 1300 / 1300 800 / 800 500 / 500 375 / 375 Balance -755 / -755 -650 / -650 170 / 170 125 / 125 Weight 142 lb 2 oz 139 lb 9 oz 141 lb 7 oz 141 lb 7 oz Microbiology Reports for the Last 24 Hours: Microbiology 07/09/20 05:20 Blood Blood Culture - Final NO GROWTH AFTER 5 DAYS Narrative: Patient has increased respiratory rate with shallow respirations. Vapotherm is in place. Lungs remain diminished throughout with poor aeration. Heart has a regular rate and rhythm Assessment and Plan (1) Acute respiratory failure with hypercapnia Status: Acute Category: Medical Code(s): J96.02 - Acute respiratory failure with hypercapnia (2) Severe sepsis with acute organ dysfunction Status: Acute Category: Medical Code(s): A41.9 - Sepsis, unspecified organism; R65.20 - Severe sepsis without septic shock (3) HCAP (healthcare-associated pneumonia) Status: Acute Category: Medical Code(s): J18.9 - Pneumonia, unspecified organism (4) CHF exacerbation Status: Acute Qualifiers: Heart failure type: unspecified Qualified Code(s): I50.9 - Heart failure, unspecified Category: Medical Code(s): I50.9 - Heart failure, unspecified (5) CAP (community acquired pneumonia) Status: Acute Qualifiers: Laterality: right Lung location: lower lobe of lung Qualified Code(s): J18.9 - Pneumonia, unspecified organism Category: Medical Code(s): J18.9 - Pneumonia, unspecified organism - Assessment and plan all Dx Assessment and Plan for all problems:: 1. ABG this morning to make sure patient's respiratory failure is not worsening. For worsening respiratory failure patient will be placed on BiPAP
[2020-07-14 07:49] LABS: ABG Base Excess 3.6 mmol/L (-2.4-2.3); ABG HCO3 30.8 mmhg (22.0-26.0); ABG Oxygen Saturation 90 % (90-100); ABG PH 7.25 mmol/L (7.35-7.45); ABG PO2 64.7 mmhg (80-100)
[2020-07-14 07:50] LABS: Allen's Test Acceptable; Source Right Radial
[2020-07-14 07:52] LABS: ABG PCO2 71.5 mmhg (35.0-45.0)
--- NOTE | 2020-07-14 07:56 | XR_ITS ---
PROCEDURE: XR CHEST PORTABLE CLINICAL HISTORY: worsening resp. failure, pneumonia COMPARISON: No exams were available for comparison FINDINGS: There is cardiomegaly without failure. There are low lung volumes with bilateral lower lobe consolidation and small right pleural effusion. Consolidation appears somewhat worse in the right lower lobe however, the degree of inspiration is less on today's exam. There is a bipolar pacemaker present from left subclavian approach. Degenerative changes of the shoulders. IMPRESSION: Cardiomegaly with bilateral lower lobe airspace disease consistent with bilateral pneumonia which appears slightly worse on the right with small right pleural effusion Dictated by: Bobby Tabor MD 07/14/2020 08:29 Bobby Tabor MD in [facility] 07/14/2020 08:29
--- NOTE | 2020-07-14 08:19 | PC.NURSE ---
abg results received at 0752. reported face to face to Dr Pedro at 0755. to enter new orders. ph 7.25 CO2 71.5 PO2 64.7 HCO3 30.8 pt on vapotherm 40L 90% FiO2
[2020-07-14 08:45] LABS: Basophils # 0.1 K/mm3 (0-0.2); Basophils % 0.4 % (0.1-2.0); Eosinophils # 0.2 K/mm3 (0.0-0.4); Eosinophils % 1.4 % (0.1-12.0); Hematocrit 46.2 % (37.0-47.0); Hemoglobin 14.2 g/dL (12.2-16.2); Lymphocytes # 1.1 K/mm3 (0.7-4.5); Lymphocytes % 8.8 % (10-50); Mean Corpuscular HGB Conc 30.7 g/dL (31.8-35.4); Mean Corpuscular Hemoglobin 27.8 pg (27.0-31.2); Mean Corpuscular Volume 90.4 fl (81-99); Mean Platelet Volume 7.6 fl (7.4-10.4); Monocytes # 0.7 K/mm3 (0.1-1.0); Neutrophils # 10.2 K/mm3 (1.8-7.8); Neutrophils % 83.5 % (37.0-80.0); Platelet Count 177 K/mm3 (142-424); Red Blood Count 5.11 M/mm3 (4.20-5.40); Red Cell Distribution Width 16.3 % (11.5-17.5); White Blood Count 12.2 K/mm3 (4.8-10.8)
[2020-07-14 08:57] LABS: Chloride 101 mmol/L (98-107); Sodium 140 mmol/L (136-145)
[2020-07-14 08:58] LABS: Potassium 4.5 mmoL/L (3.5-5.1)
[2020-07-14 09:00] LABS: Blood Urea Nitrogen 22 mg/dl (7-17); Creatinine Clearance Estimated 45 mL/min (50-200); Estimated Glomerular Filt Rate 69 ml/min (>60); GFR (African American) 83 ML/MIN (>60)
[2020-07-14 09:01] LABS: Anion Gap 10.5 mEq/L (5-15); Calcium 8.5 mg/dl (8.4-10.2); Carbon Dioxide 33 mmol/L (22.0-30.0); Glucose 117 mg/dl (74-100)
--- NOTE | 2020-07-14 09:15 | HMH.PHACONS ---
- Pharmacy Consult Date: 07/14/20 Time: 09:15 Referring provider: DR. GALO Reason for Consult:: VANCOMYCIN DOSING Allergies and ADEs:: Allergies Allergy/AdvReac Type Severity Reaction Status Date / Time hydrogen peroxide Allergy Severe Blister Verified 07/08/20 18:19 amiodarone [AMIODARONE] Allergy Unknown Difficulty Verified 07/08/20 18:19 Breathing Home Medications:: Home Medications Medication Instructions Recorded Confirmed Type aspirin 81 mg tablet,delayed 81 mg PO DAILY tab 04/02/17 07/08/20 History release atorvastatin 80 mg tablet 80 mg PO HS #30 tab 09/15/19 07/08/20 Rx digoxin 125 mcg (0.125 mg) tablet 125 mcg PO DAILY #30 tab 09/15/19 07/08/20 Rx rivaroxaban 20 mg tablet 20 mg PO DAILY #30 tab 09/15/19 07/08/20 Rx levothyroxine 50 mcg tablet 50 mcg PO DAILY tab 12/15/19 07/08/20 History ropinirole 0.25 mg tablet 1 mg PO HS tab 03/29/20 07/08/20 History Buspirone HCl [Buspirone 15 mg 15 mg PO BID 07/08/20 07/08/20 History Tablets] Folic Acid 0.8 mg PO DAILY 07/08/20 07/08/20 History Furosemide [Furosemide 80mg Tab] 80 mg PO DAILY 07/08/20 07/08/20 History Ipratropium [place] [Ipratropium 2 spray NS BID 07/08/20 07/08/20 History [place] 0.021mg/act NS] Ropinirole HCl 0.5 mg PO DAILY 07/08/20 07/09/20 History bisoproloL fumarate [Bisoprolol 10 mg PO DAILY 07/08/20 07/08/20 History 10mg Tablet] dilTIAZem HCL [Cartia Xt] 180 mg PO DAILY 07/08/20 07/08/20 History Fluticasone Propionate 2 sprays INHALATION DAILY 07/09/20 07/09/20 History Height: 1.57 m Weight: 64.155 kg Laboratory Results:: Laboratory Results - last 24 hr 07/14/20 07:31: Specimen Source Right radial, O2 % 40l 90%, ABG pH 7.25 L, ABG pCO2 71.5 H, ABG pO2 64.7 L, ABG HCO3 30.8 H, ABG Total CO2 33.0 H, ABG O2 Saturation 90, ABG Base Excess 3.6 H, Bobby Test Acceptable 07/14/20 08:35: WBC 12.2 H D, RBC 5.11, Hgb 14.2, Hct 46.2, MCV 90.4, MCH 27.8, MCHC 30.7 L, RDW 16.3, Plt Count 177, MPV 7.6, Neut % (Auto) 83.5 H, Lymph % (Auto) 8.8 L, Yell % (Auto) 6.0, Eos % (Auto) 1.4, Baso % (Auto) 0.4, Neut # (Auto) 10.2 H, Lymph # (Auto) 1.1, Yell # (Auto) 0.7, Eos # (Auto) 0.2, Baso # (Auto) 0.1 07/14/20 08:35: Sodium 140, Potassium 4.5, Chloride 101, Carbon Dioxide 33 H, Anion Gap 10.5, BUN 22 H, Creatinine 0.80, Estimated Creat Clear 45, Estimated GFR 69, Est GFR ( Amer) 83, Glucose 117 H, Calcium 8.5 Medical History: Reports:: Atherosclerotic Heart Disease, Atrial Fibrillation, Congestive Heart Failure, Coronary Artery Disease, Gastroesophageal Reflux Disease(GERD), Hyperlipidemia, Hypertension, Internal Pacemaker, Palpitations Denies:: Cancer, Diabetes Mellitus Type 1, Diabetes Mellitus Type 2, MRSA Assessment and Plan (1) Acute respiratory failure with hypercapnia Status: Acute Category: Medical Code(s): J96.02 - Acute respiratory failure with hypercapnia (2) Severe sepsis with acute organ dysfunction Status: Acute Category: Medical Code(s): A41.9 - Sepsis, unspecified organism; R65.20 - Severe sepsis without septic shock (3) HCAP (healthcare-associated pneumonia) Status: Acute Category: Medical Code(s): J18.9 - Pneumonia, unspecified organism (4) CHF exacerbation Status: Acute Qualifiers: Heart failure type: unspecified Qualified Code(s): I50.9 - Heart failure, unspecified Category: Medical Code(s): I50.9 - Heart failure, unspecified (5) CAP (community acquired pneumonia) Status: Acute Qualifiers: Laterality: right Lung location: lower lobe of lung Qualified Code(s): J18.9 - Pneumonia, unspecified organism Category: Medical Code(s): J18.9 - Pneumonia, unspecified organism - Assessment and plan all Dx Assessment and Plan for all problems:: Age: 79 yo Serum creatinine: 1 mg/dL Height: 61.8 Inches Weight (kg): 64.2 Assessment: IBW (kg): 49.64 Dosing wt(kg): 64.2 Estimated Creatinine clearance (ml/min): 34.6 CRCL
--- NOTE | 2020-07-14 16:32 | PC.NURSE ---
Dr Pedro was notified at this time that the pts feet are cold and dark purple. pulses are still palpable. pt is breathing 24-26 times a minute and o2 sats are anywhere from 82-86 with Vapotherm being 40L and 100%. per Dr Pedro place pt on bipap at this time and continue to monitor. MD feels likely terminal outcome.
--- NOTE | 2020-07-14 21:17 | PC.NURSE ---
trash pulled and snack given at this time
[2020-07-15] VITALS (16 sets, daily range): BP systolic 109–125; BP diastolic 57–73; PULSE 70–83; RESP 23–40; TEMP 36.3–36.9; O2SAT 88–96; BMI 26.6
[2020-07-15 06:03] LABS: Basophils % 0.4 % (0.1-2.0); Eosinophils % 0.4 % (0.1-12.0); Hematocrit 43.8 % (37.0-47.0); Hemoglobin 13.3 g/dL (12.2-16.2); Lymphocytes # 0.8 K/mm3 (0.7-4.5); Mean Corpuscular HGB Conc 30.4 g/dL (31.8-35.4); Mean Corpuscular Hemoglobin 26.4 pg (27.0-31.2); Mean Corpuscular Volume 86.9 fl (81-99); Mean Platelet Volume 8.1 fl (7.4-10.4); Monocytes # 0.9 K/mm3 (0.1-1.0); Monocytes % 9.1 % (1.7-9.3); Neutrophils # 7.7 K/mm3 (1.8-7.8); Neutrophils % 82.1 % (37.0-80.0); Platelet Count 176 K/mm3 (142-424); Red Blood Count 5.04 M/mm3 (4.20-5.40); White Blood Count 9.3 K/mm3 (4.8-10.8)
[2020-07-15 06:20] LABS: Chloride 100 mmol/L (98-107); Potassium 4.7 mmoL/L (3.5-5.1)
[2020-07-15 06:21] LABS: Sodium 139 mmol/L (136-145)
[2020-07-15 06:23] LABS: Blood Urea Nitrogen 32 mg/dl (7-17); Creatinine Clearance Estimated 46 mL/min (50-200); Estimated Glomerular Filt Rate 60 ml/min (>60); GFR (African American) 73 ML/MIN (>60)
[2020-07-15 06:24] LABS: Anion Gap 9.7 mEq/L (5-15); Carbon Dioxide 34 mmol/L (22.0-30.0)
[2020-07-15 06:25] LABS: Calcium 8.9 mg/dl (8.4-10.2); Glucose 129 mg/dl (74-100)
--- NOTE | 2020-07-15 07:10 | HMH.ACPN2 ---
Internal Medicine - PN: Subj *Date: 07/15/20 *Time: 07:10 Interval history: As yesterday progressed patient remained with depressed level of consciousness and minimal interaction with nurses. I was contacted regarding the appearance of the patient's extremities as the nurse felt like her feet were starting to turn a purple color. Patient was placed back on BiPAP. By late in the evening patient had become more awake and alert and was interacting with nurses. She is kept BiPAP on overnight. This morning she is able to awaken and converse through the BiPAP. She denies shortness of breath Exam Vital signs and Labs for Last 24 Hours: Temp Pulse Resp BP Pulse Ox 97.9 F 73 26 H 109/62 L 96 07/15/20 04:00 07/15/20 06:13 07/15/20 04:00 07/15/20 04:00 07/15/20 06:13 Laboratory Results - last 24 hr 07/14/20 07:31: Specimen Source Right radial, O2 % 40l 90%, ABG pH 7.25 L, ABG pCO2 71.5 H, ABG pO2 64.7 L, ABG HCO3 30.8 H, ABG Total CO2 33.0 H, ABG O2 Saturation 90, ABG Base Excess 3.6 H, Bobby Test Acceptable 07/14/20 08:35: WBC 12.2 H D, RBC 5.11, Hgb 14.2, Hct 46.2, MCV 90.4, MCH 27.8, MCHC 30.7 L, RDW 16.3, Plt Count 177, MPV 7.6, Neut % (Auto) 83.5 H, Lymph % (Auto) 8.8 L, [place] % (Auto) 6.0, Eos % (Auto) 1.4, Baso % (Auto) 0.4, Neut # (Auto) 10.2 H, Lymph # (Auto) 1.1, [place] # (Auto) 0.7, Eos # (Auto) 0.2, Baso # (Auto) 0.1 07/14/20 08:35: Sodium 140, Potassium 4.5, Chloride 101, Carbon Dioxide 33 H, Anion Gap 10.5, BUN 22 H, Creatinine 0.80, Estimated Creat Clear 45, Estimated GFR 69, Est GFR ( Amer) 83, Glucose 117 H, Calcium 8.5 07/15/20 05:37: WBC 9.3, RBC 5.04, Hgb 13.3, Hct 43.8, MCV 86.9, MCH 26.4 L, MCHC 30.4 L, RDW 16.0, Plt Count 176, MPV 8.1, Neut % (Auto) 82.1 H, Lymph % (Auto) 8.0 L, [place] % (Auto) 9.1, Eos % (Auto) 0.4, Baso % (Auto) 0.4, Neut # (Auto) 7.7, Lymph # (Auto) 0.8, [place] # (Auto) 0.9, Eos # (Auto) 0.0, Baso # (Auto) 0.0 07/15/20 05:37: Sodium 139, Potassium 4.7, Chloride 100, Carbon Dioxide 34 H, Anion Gap 9.7, BUN 32 H D, Creatinine 0.90, Estimated Creat Clear 46, Estimated GFR 60, Est GFR ( Amer) 73, Glucose 129 H, Calcium 8.9 I & O for Last 24 hours: Intake & Output 07/12/20 07/13/20 07/14/20 07/15/20 11:59 11:59 11:59 11:59 Intake Total 150 / 150 670 / 670 980 / 980 180 / 180 Output Total 800 / 800 500 / 500 375 / 375 1450 / 1450 Balance -650 / -650 170 / 170 605 / 605 -1270 / -1270 Weight 139 lb 9 oz 141 lb 7 oz 141 lb 7 oz 145 lb 2 oz Microbiology Reports for the Last 24 Hours: Microbiology 07/09/20 05:20 Blood Blood Culture - Final NO GROWTH AFTER 5 DAYS - Constitutional no acute distress - *Routine Respiratory Exam Present: distant breath sounds, diminished air movement - *Routine Cardiovascular Exam Present: RRR - *Routine Abdominal Exam Present: soft, normoactive bowel sounds. Absent: tenderness Assessment and Plan (1) Acute respiratory failure with hypercapnia Status: Acute Category: Medical Code(s): J96.02 - Acute respiratory failure with hypercapnia (2) Severe sepsis with acute organ dysfunction Status: Acute Category: Medical Code(s): A41.9 - Sepsis, unspecified organism; R65.20 - Severe sepsis without septic shock (3) HCAP (healthcare-associated pneumonia) Status: Acute Category: Medical Code(s): J18.9 - Pneumonia, unspecified organism (4) CHF exacerbation Status: Acute Qualifiers: Heart failure type: unspecified Qualified Code(s): I50.9 - Heart failure, unspecified Category: Medical Code(s): I50.9 - Heart failure, unspecified (5) CAP (community acquired pneumonia) Status: Acute Qualifiers: Laterality: right Lung location: lower lobe of lung Qualified Code(s): J18.9 - Pneumonia, unspecified organism Category: Medical Code(s): J18.9 - Pneumonia, unspecified organism - Assessment and plan all Dx Assessment and Plan for all problems:: 1. Transition b
--- NOTE | 2020-07-15 16:00 | PC.NURSE ---
Pt has been pleasant and cooperative this shift. A&O X4. No complaints of pain or SOA. Pt is currently wearing O2 via Vapotherm @ 40 LPM with sats. >90%. Lungs CTA. 1+ pitting edema noted to BUE. Skin is C/D/I. Telemetry reveals a PACED rhythm. Pt ambulates with assistance X1 and has sat up in the recliner for several hours today. F/C is patent and draining clear, yellow urine at bedside to gravity. No BM this shift. Pt instructed to provide sputum sample and a specimen cup is at bedside. 20 G peripheral IV in the RT upper arm is patent and SL. 20 G peripheral IV in the LT AC is patent and SL. VSS. Call light within reach. Will continue to monitor.
[2020-07-16] VITALS (14 sets, daily range): BP systolic 107–131; BP diastolic 52–72; PULSE 70–84; RESP 20–37; TEMP 36.4–36.6; O2SAT 89–98; BMI 25.9
--- NOTE | 2020-07-16 05:15 | PC.NURSE ---
patient has tolerated bipap well this shift. somewhat hesitant to put it on but agreeable with encouragement. fio2 titrated to 90% at 2300, titrated to 80% at 0000, 70% at 0200 and then 60% at 0400 on bipap. sats sustained greater than 95% all shift. is awake alert and oriented. case monitor shows paced rhythm. left arm more edematous than right, patient states this is normal for her due to pre-existing numbness in bilateral arms. patient currently on vapotherm 40 l 100%, will discuss titration with respiratory therapy.
[2020-07-16 06:00] LABS: Basophils # 0.1 K/mm3 (0-0.2); Basophils % 0.5 % (0.1-2.0); Eosinophils # 0.2 K/mm3 (0.0-0.4); Eosinophils % 1.4 % (0.1-12.0); Hematocrit 43.8 % (37.0-47.0); Hemoglobin 13.6 g/dL (12.2-16.2); Lymphocytes # 1.4 K/mm3 (0.7-4.5); Mean Corpuscular HGB Conc 31.1 g/dL (31.8-35.4); Mean Corpuscular Hemoglobin 27.2 pg (27.0-31.2); Mean Corpuscular Volume 87.4 fl (81-99); Mean Platelet Volume 8.4 fl (7.4-10.4); Monocytes # 0.8 K/mm3 (0.1-1.0); Monocytes % 6.9 % (1.7-9.3); Neutrophils % 79.2 % (37.0-80.0); Platelet Count 175 K/mm3 (142-424); Red Blood Count 5.01 M/mm3 (4.20-5.40); Red Cell Distribution Width 16.4 % (11.5-17.5); White Blood Count 11.3 K/mm3 (4.8-10.8)
[2020-07-16 06:02] LABS: Chloride 96 mmol/L (98-107)
[2020-07-16 06:03] LABS: Potassium 4.1 mmoL/L (3.5-5.1); Sodium 137 mmol/L (136-145)
[2020-07-16 06:06] LABS: Anion Gap 8.1 mEq/L (5-15); Blood Urea Nitrogen 39 mg/dl (7-17); Calcium 9.2 mg/dl (8.4-10.2); Carbon Dioxide 37 mmol/L (22.0-30.0); Creatinine Clearance Estimated 41 mL/min (50-200); Estimated Glomerular Filt Rate 48 ml/min (>60); GFR (African American) 58 ML/MIN (>60); Glucose 103 mg/dl (74-100)
--- NOTE | 2020-07-16 07:57 | P.PN_ITS ---
Internal Medicine - PN: Subj *Date: 07/16/20 *Time: 07:57 Interval history: Patient is stable. She tolerated Vapotherm well yesterday and was out of bed to chair. Patient used BiPAP again overnight. This morning she is awake and has no complaints Exam Vital signs and Labs for Last 24 Hours: Temp Pulse Resp BP Pulse Ox 97.5 F L 84 30 H 113/62 93 L 07/16/20 04:00 07/16/20 06:30 07/16/20 04:00 07/16/20 04:00 07/16/20 06:55 Laboratory Results - last 24 hr 07/16/20 05:25: WBC 11.3 H, RBC 5.01, Hgb 13.6, Hct 43.8, MCV 87.4, MCH 27.2, MCHC 31.1 L, RDW 16.4, Plt Count 175, MPV 8.4, Neut % (Auto) 79.2, Lymph % (Auto) 12.0, [place] % (Auto) 6.9, Eos % (Auto) 1.4, Baso % (Auto) 0.5, Neut # (Auto) 9.0 H, Lymph # (Auto) 1.4, [place] # (Auto) 0.8, Eos # (Auto) 0.2, Baso # (Auto) 0.1 07/16/20 05:25: Sodium 137, Potassium 4.1, Chloride 96 L, Carbon Dioxide 37 H, Anion Gap 8.1, BUN 39 H, Creatinine 1.10 H D, Estimated Creat Clear 41, Estimated GFR 48 L, Est GFR ( Amer) 58 L D, Glucose 103 H D, Calcium 9.2 I & O for Last 24 hours: Intake & Output 07/13/20 07/14/20 07/15/20 07/16/20 11:59 11:59 11:59 11:59 Intake Total 670 / 670 980 / 980 280 / 280 1135 / 1135 Output Total 500 / 500 375 / 375 1450 / 1450 2175 / 2175 Balance 170 / 170 605 / 605 -1170 / -1170 -1040 / -1040 Weight 141 lb 7 oz 141 lb 7 oz 145 lb 2 oz 141 lb 3 oz Narrative: Patient looks comfortable. No increased work of breathing. Lungs are distant at the bases but clear. Heart has a regular paced rhythm. Abdomen is soft. Patient has edema of the left arm. Assessment and Plan (1) Acute respiratory failure with hypercapnia Status: Acute Category: Medical Code(s): J96.02 - Acute respiratory failure with hypercapnia (2) Severe sepsis with acute organ dysfunction Status: Acute Category: Medical Code(s): A41.9 - Sepsis, unspecified organism; R65.20 - Severe sepsis without septic shock (3) HCAP (healthcare-associated pneumonia) Status: Acute Category: Medical Code(s): J18.9 - Pneumonia, unspecified organism (4) CHF exacerbation Status: Acute Qualifiers: Heart failure type: unspecified Qualified Code(s): I50.9 - Heart failure, unspecified Category: Medical Code(s): I50.9 - Heart failure, unspecified (5) CAP (community acquired pneumonia) Status: Acute Qualifiers: Laterality: right Lung location: lower lobe of lung Qualified Code(s): J18.9 - Pneumonia, unspecified organism Category: Medical Code(s): J18.9 - Pneumonia, unspecified organism - Assessment and plan all Dx Assessment and Plan for all problems:: 1. Patient is stable. Continue attempts to wean oxygen back to patient's ba seline of 3 L/min via nasal cannula
[2020-07-16 09:57] LABS: Vancomycin,Trough 8.9 ug/mL (5.0-10.0)
--- NOTE | 2020-07-16 10:00 | HMH.PHACONS ---
- Pharmacy Consult Date: 07/16/20 Time: 10:02 Referring provider: DR. GALO Reason for Consult:: VANCOMYCIN TROUGH LEVEL AND DOSE CHANGE Allergies and ADEs:: Allergies Allergy/AdvReac Type Severity Reaction Status Date / Time hydrogen peroxide Allergy Severe Blister Verified 07/08/20 18:19 amiodarone [AMIODARONE] Allergy Unknown Difficulty Verified 07/08/20 18:19 Breathing Home Medications:: Home Medications Medication Instructions Recorded Confirmed Type aspirin 81 mg tablet,delayed 81 mg PO DAILY tab 04/02/17 07/08/20 History release atorvastatin 80 mg tablet 80 mg PO HS #30 tab 09/15/19 07/08/20 Rx digoxin 125 mcg (0.125 mg) tablet 125 mcg PO DAILY #30 tab 09/15/19 07/08/20 Rx rivaroxaban 20 mg tablet 20 mg PO DAILY #30 tab 09/15/19 07/08/20 Rx levothyroxine 50 mcg tablet 50 mcg PO DAILY tab 12/15/19 07/08/20 History ropinirole 0.25 mg tablet 1 mg PO HS tab 03/29/20 07/08/20 History Buspirone HCl [Buspirone 15 mg 15 mg PO BID 07/08/20 07/08/20 History Tablets] Folic Acid 0.8 mg PO DAILY 07/08/20 07/08/20 History Furosemide [Furosemide 80mg Tab] 80 mg PO DAILY 07/08/20 07/08/20 History Ipratropium [place] [Ipratropium 2 spray NS BID 07/08/20 07/08/20 History [place] 0.021mg/act NS] Ropinirole HCl 0.5 mg PO DAILY 07/08/20 07/09/20 History bisoproloL fumarate [Bisoprolol 10 mg PO DAILY 07/08/20 07/08/20 History 10mg Tablet] dilTIAZem HCL [Cartia Xt] 180 mg PO DAILY 07/08/20 07/08/20 History Fluticasone Propionate 2 sprays INHALATION DAILY 07/09/20 07/09/20 History Height: 1.57 m Weight: 64.042 kg Laboratory Results:: Laboratory Results - last 24 hr 07/16/20 05:25: WBC 11.3 H, RBC 5.01, Hgb 13.6, Hct 43.8, MCV 87.4, MCH 27.2, MCHC 31.1 L, RDW 16.4, Plt Count 175, MPV 8.4, Neut % (Auto) 79.2, Lymph % (Auto) 12.0, [place] % (Auto) 6.9, Eos % (Auto) 1.4, Baso % (Auto) 0.5, Neut # (Auto) 9.0 H, Lymph # (Auto) 1.4, [place] # (Auto) 0.8, Eos # (Auto) 0.2, Baso # (Auto) 0.1 07/16/20 05:25: Sodium 137, Potassium 4.1, Chloride 96 L, Carbon Dioxide 37 H, Anion Gap 8.1, BUN 39 H, Creatinine 1.10 H D, Estimated Creat Clear 41, Estimated GFR 48 L, Est GFR ( Amer) 58 L D, Glucose 103 H D, Calcium 9.2 07/16/20 09:20: Vancomycin Trough 8.9 Medical History: Reports:: Atherosclerotic Heart Disease, Atrial Fibrillation, Congestive Heart Failure, Coronary Artery Disease, Gastroesophageal Reflux Disease(GERD), Hyperlipidemia, Hypertension, Internal Pacemaker, Palpitations Denies:: Cancer, Diabetes Mellitus Type 1, Diabetes Mellitus Type 2, MRSA Assessment and Plan (1) Acute respiratory failure with hypercapnia Status: Acute Category: Medical Code(s): J96.02 - Acute respiratory failure with hypercapnia (2) Severe sepsis with acute organ dysfunction Status: Acute Category: Medical Code(s): A41.9 - Sepsis, unspecified organism; R65.20 - Severe sepsis without septic shock (3) HCAP (healthcare-associated pneumonia) Status: Acute Category: Medical Code(s): J18.9 - Pneumonia, unspecified organism (4) CHF exacerbation Status: Acute Qualifiers: Heart failure type: unspecified Qualified Code(s): I50.9 - Heart failure, unspecified Category: Medical Code(s): I50.9 - Heart failure, unspecified (5) CAP (community acquired pneumonia) Status: Acute Qualifiers: Laterality: right Lung location: lower lobe of lung Qualified Code(s): J18.9 - Pneumonia, unspecified organism Category: Medical Code(s): J18.9 - Pneumonia, unspecified organism - Assessment and plan all Dx Assessment and Plan for all problems:: BASED ON PATIENT FACTORS AND VANCOMYCIN TROUGH LEVEL OF 8.9 AFTER TWO DOSES, RECOMMEND SLIGHTLY INCREASING DOSE TO 1,250MG Q24H. PHARMACY WILL CONTINUE TO MONITOR AND WILL ADJUST DOSE APPROPRIATE. -SRI TORRES, LILYD
--- NOTE | 2020-07-16 15:40 | PC.NURSE ---
Vapotherm increased to 35L/100% by RT @ 1430, d/t sat decreasing to 85-86% and sustaining. Remains A&Ox4. Required assistance x2 when transferring to recliner, pt extremely weak and only aided staff w/ transfer very minimally. She is currently sitting up in chair, no s/s of resp distress. Family @ bedside. No complaints voiced. Call janet w/in reach.
--- NOTE | 2020-07-16 23:58 | PC.NURSE ---
patient pulled bipap off tonight stating its to much she can't wear it, nose is hurting. patient awake alert and oriented. respiratory unavailable at this time to place vapotherm. venturi mask placed. patient sats 86% on 50%
[2020-07-17] VITALS (13 sets, daily range): BP systolic 101–140; BP diastolic 55–69; PULSE 68–81; RESP 21–36; TEMP 36.3–36.6; O2SAT 83–93
--- NOTE | 2020-07-17 00:11 | PC.NURSE ---
vapotherm back on 35 l 100% with sats 88%
--- NOTE | 2020-07-17 02:59 | PC.NURSE ---
patient continues to refuse bipap, remains on vapotherm 35l 100% maintaining sats of 88-89 while resting. awakens easily, alart and oriented and follows commands appropriately
--- NOTE | 2020-07-17 04:03 | PC.NURSE ---
twan called nurse into room stating she didn't think the vapotherm was working, breathing labored. this rn explained again that she really should be wearing the bipap and that is really the only thing that will help her catch her breath. patient agreed after bargaining for mask being loser and only wearing it for a little. patient o2 sats were 87% on vapotherm when called in, rr 42. bipap placed with 70% fio2. sats increased to 90% and respiratory rate 27
--- NOTE | 2020-07-17 05:35 | PC.NURSE ---
patient only wore bipap for about an hour and a half this morning. discussed attempting to do 2 hrs on and 2 hours off to see if she could tolerate better. sats on vapotherm currently are 92% on 35l 100% with rr of 30
[2020-07-17 05:54] LABS: Basophils % 0.3 % (0.1-2.0); Eosinophils # 0.2 K/mm3 (0.0-0.4); Eosinophils % 1.2 % (0.1-12.0); Hematocrit 42.8 % (37.0-47.0); Hemoglobin 13.6 g/dL (12.2-16.2); Lymphocytes # 1.3 K/mm3 (0.7-4.5); Lymphocytes % 9.8 % (10-50); Mean Corpuscular HGB Conc 31.8 g/dL (31.8-35.4); Mean Corpuscular Hemoglobin 27.2 pg (27.0-31.2); Mean Corpuscular Volume 85.5 fl (81-99); Monocytes # 1.2 K/mm3 (0.1-1.0); Monocytes % 8.9 % (1.7-9.3); Neutrophils # 10.6 K/mm3 (1.8-7.8); Neutrophils % 79.8 % (37.0-80.0); Platelet Count 174 K/mm3 (142-424); Red Cell Distribution Width 16.5 % (11.5-17.5); White Blood Count 13.3 K/mm3 (4.8-10.8)
[2020-07-17 05:58] LABS: Anion Gap 4.8 mEq/L (5-15); Blood Urea Nitrogen 38 mg/dl (7-17); Chloride 95 mmol/L (98-107); Creatinine Clearance Estimated 45 mL/min (50-200); Estimated Glomerular Filt Rate 60 ml/min (>60); GFR (African American) 73 ML/MIN (>60); Glucose 100 mg/dl (74-100); Potassium 3.8 mmoL/L (3.5-5.1); Sodium 136 mmol/L (136-145)
[2020-07-17 06:13] LABS: Carbon Dioxide 40 mmol/L (22.0-30.0)
--- NOTE | 2020-07-17 07:50 | P.PN_ITS ---
Internal Medicine - PN: Subj *Date: 07/17/20 *Time: 07:50 Interval history: Yesterday evening patient developed increased work of breathing with decrease in O2 sats. The nurse negotiated use of the BiPAP with the patient which was brief. Patient reports BiPAP is uncomfortable. This morning she remains on Vapotherm which is nearly maxed out with O2 sat of 90%. Exam Vital signs and Labs for Last 24 Hours: Temp Pulse Resp BP Pulse Ox 97.6 F 80 31 H 137/59 L 90 L 07/17/20 04:00 07/17/20 06:15 07/17/20 04:00 07/17/20 04:00 07/17/20 06:15 Laboratory Results - last 24 hr 07/16/20 09:20: Vancomycin Trough 8.9 07/17/20 05:25: WBC 13.3 H, RBC 5.00, Hgb 13.6, Hct 42.8, MCV 85.5, MCH 27.2, MCHC 31.8, RDW 16.5, Plt Count 174, MPV 8.0, Neut % (Auto) 79.8, Lymph % (Auto) 9.8 L, [place] % (Auto) 8.9, Eos % (Auto) 1.2, Baso % (Auto) 0.3, Neut # (Auto) 10.6 H, Lymph # (Auto) 1.3, [place] # (Auto) 1.2 H, Eos # (Auto) 0.2, Baso # (Auto) 0.0 07/17/20 05:25: Sodium 136, Potassium 3.8, Chloride 95 L, Carbon Dioxide 40 H, Anion Gap 4.8 L, BUN 38 H, Creatinine 0.90, Estimated Creat Clear 45, Estimated GFR 60, Est GFR ( Amer) 73 D, Glucose 100, Calcium 9.0 I & O for Last 24 hours: Intake & Output 07/14/20 07/15/20 07/16/20 07/17/20 11:59 11:59 11:59 11:59 Intake Total 980 / 980 280 / 280 1655 / 1655 180 / 180 Output Total 375 / 375 1450 / 1450 2175 / 2175 2225 / 2225 Balance 605 / 605 -1170 / -1170 -520 / -520 -204 / -2044 Weight 141 lb 7 oz 145 lb 2 oz 141 lb 3 oz Microbiology Reports for the Last 24 Hours: Microbiology 07/14/20 14:00 Nose - Nasal MRSA Culture - Final Negative Narrative: Patient has increased work of breathing compared to yesterday with higher respiratory rate. Oropharynx is moist. Neck is supple. Lungs are diminished throughout. Heart has a regular rate and rhythm. Abdomen is soft. Lower extremities have no edema. Assessment and Plan (1) Acute respiratory failure with hypercapnia Status: Acute Category: Medical Code(s): J96.02 - Acute respiratory failure with hypercapnia (2) Severe sepsis with acute organ dysfunction Status: Acute Category: Medical Code(s): A41.9 - Sepsis, unspecified organism; R65.20 - Severe sepsis without septic shock (3) HCAP (healthcare-associated pneumonia) Status: Acute Category: Medical Code(s): J18.9 - Pneumonia, unspecified organism (4) CHF exacerbation Status: Acute Qualifiers: Heart failure type: unspecified Qualified Code(s): I50.9 - Heart failure, unspecified Category: Medical Code(s): I50.9 - Heart failure, unspecified (5) CAP (community acquired pneumonia) Status: Acute Qualifiers: Laterality: right Lung location: lower lobe of lung Qualified Code(s): J18.9 - Pneumonia, unspecified organism Category: Medical Code(s): J18.9 - Pneumonia, unspecified organism - Assessment and plan all Dx Assessment and Plan for all problems:: 1. Patient is beginning to decline again and it was emphasized with the patient that she will need to use the BiPAP at some point during the day. Patient was repositioned and will be monitored closely 2. CT scan of the chest will be ordered for today. Echocardiogram in the morning.
--- NOTE | 2020-07-17 07:52 | CT_ITS ---
PROCEDURE INFORMATION: Exam: CT Chest Without Contrast; Diagnostic Exam date and time: 07/17/2020 7:52 AM Age: 79 years old Clinical indication: Shortness of breath; Prior surgery; Additional info: Bibasilar pneumonia on x-ray, not improving TECHNIQUE: Imaging protocol: Diagnostic computed tomography of the chest without contrast. Radiation optimization: All CT scans at this facility use at least one of these dose optimization techniques: automated exposure control; mA and/or kV adjustment per patient size (includes targeted exams where dose is matched to clinical indication); or iterative reconstruction. COMPARISON: [facility] CT CHEST W/O CONTRAST 12/07/2014 1:06 PM FINDINGS: Tubes, catheters and devices: Transvenous pacemaker leads in the heart Lungs: Consolidation in both lower lobes . Ground-glass opacities in the upper lobes and right middle lobe and lingula. Findings may represent atelectasis or pneumonia. . Pleural spaces: Moderate bilateral pleural effusions.. Heart: Coronary artery calcifications may indicate coronary artery disease. There is calcification of the aortic valve annulus. There is calcification of the mitral valve annulus. Coronary artery calcifications may indicate coronary artery disease. Cardiomegaly Aorta: Unremarkable. No aortic aneurysm. Lymph nodes: Pathologic node anterior to the deion 2.6 x 1.6 cm. Bones/joints: Degenerative changes in the glenohumeral joints bilaterally Soft tissues: Unremarkable. Other findings: Motion artifact degrades the images. IMPRESSION: 1. Moderate bilateral pleural effusions.. 2. Pathologic node anterior to the deion 2.6 x 1.6 cm. 3. Consolidation in both lower lobes . Ground-glass opacities in the upper lobes and right middle lobe and lingula. Findings may represent atelectasis or pneumonia. .
--- NOTE | 2020-07-17 08:29 | PC.NURSE ---
Pt down to CT by bed w/ RT and SRNA present. Pt placed on non-rebreather while down for CT d/t vapotherm not being mobile for transport.
--- NOTE | 2020-07-17 16:25 | PC.NURSE ---
At around 1400, noted that pt's work of breathing had started to increase again as it was this morning and that sat was remaining around 87-88%. Spoke w/ pt about use of BIPAP to maintain sat > 90%, just as had recommended this AM. Pt consented for RT to place pt on BIPAP. She has rested since then w/ sat 90-93%. Lungs remain diminished. Paced on tely. Abdomen soft, non-tender w/ active BS in all quads. No BM this shift. Mcmillan cath to drain @ bedside. Skin intact. Pt turned and repositioned Q2H. She did not get up to chair this shift, r/t risk for safety. She is currently resting in bed w/ eyes closed. Call janet w/in reach. Family were here to visit w/ pt this AM.
--- NOTE | 2020-07-17 18:50 | PC.NURSE ---
Pt was on BIPAP for about 3 hours this afternoon. She was placed back on vapotherm 35L/100% for supper. Currently remains on vapotherm, tolerating well. She states she is agreeable to wear BIPAP @ .
--- NOTE | 2020-07-17 23:49 | PC.NURSE ---
patient confusion increased, attempting to get out of bed wanting to go home. has pulled ngt out, taken oxygen, catalyst recovery operator, and o2 sensor off. patient assisted back into bed, catalyst recovery operator, o2 and sat probe reapplied. bed alarm reactivated and bilateral mitts reapplied
[2020-07-18] VITALS (16 sets, daily range): BP systolic 105–124; BP diastolic 54–61; PULSE 40–88; RESP 18–34; TEMP 36.3–36.9; O2SAT 88–94; BMI 25.8
--- NOTE | 2020-07-18 00:01 | CA_ITS ---
APPROVED REPORT EXAM: Comprehensive 2D, Doppler, and color-flow Echocardiogram Taxi Dancer: MANJU Saavedra, RVS Ht: 5 ft 1 in Wt: 141lbs BSA: 1.63 BP: 137/59 mmHg Indications: pacer, afib, CHF, COPD, HDD, Pre-op cad 2D Dimensions IVSd 0.97 cm F: 0.6-1.0 LA Volume 94.10 mL LVDd 3.93 cm F: 3.9 - 5.3 LA Volume Index 58.08 mL/m2 (M/F) 16-34 Aortic Root 3.20 cm F: 2.7 - 3.3 Left Atrium 5.40 cm F: 2.7 - 3.8 LVOT 1.80 cm (M/F) 1.5-2.5 M-Mode Dimensions RVDd 3.36 cm (0.9-2.6) LA Diam 5.90 cm (1.9-4.0) LVDd 3.99 cm (3.5-5.7) Ao Diam 3.20 cm (2.0-3.7) LVDs 2.70 cm (3.5-5.7) AV Cusp 1.90 cm (1.5-2.6) IVSd 1.60 cm (0.6-1.1) PWd 1.29 cm (0.6-1.1) EF (Teich) 61.20% EPSs 1.86 cm FS 32.30% EDV (Teich) 69.60 mL TAPSE 0.90 (<1.7) ESV (Teich) 27.00 mL LV Diastology E Decel Time 150.00 (160-240 msec) E/A Ratio 3.1 MED E' 4.50 (< 7 cm/sec) MED A' 8.60 cm/s E'/MED E' Ratio 22.82 (>14) LAT E' 5.50 (<10 cm/sec) LAT A' 9.30 cm/s E/LAT E' Ratio 18.67 (>14) Aortic Valve LVOT Max 88.00 (70-110 cm/s) LVOT VTI 17.46 cm AoV Peak Robert. 127.00 (50-130 cm/s) AO Peak GR. 6.40 mmHg AO Mean GR. 3.20 (<5 mmHg) AO VTI 23.28 (18-25 cm) DONTE (VTI) 1.91 (2.5-4.5 cm2) Mitral Valve MV E Max Robert. 103.00 (40-130 cm/s) MV A Velocity 33.00 (40-130 cm/s) E/A Ratio 3.13 MV Decel. Time 150.00 (160-240 ms) MV PHT 44.00 ms Pulmonary Valve PV Peak Velocity 170.00 (50-150 cm/s) LA End VMAX 219.00 cm/s Tricuspid Valve TR P. Velocity 379.00 cm/s RAP Estimate 10.00 mmHg RVSP 67.50 mmHg Left Ventricle Left atrium is moderately enlarged, left ventricle is normal size, mild concentric left ventricular hypertrophy, visually estimated ejection fraction 55%, there is flattening of the interventricular septum during systole and diastole consistent with pressure and volume overload on right ventricle. Right Ventricle Right atrium is moderately enlarged, right ventricle is moderately dilated with moderate reduction right ventricular contractility. There is pacemaker lead seen in right atrium and right ventricle. Aortic Valve Aortic valve is thickened and calcified without Doppler evidence of aortic stenosis or aortic insufficiency. Mitral Valve Mitral valve leaflets are minimally thickened, there is mild mitral regurgitation. Tricuspid Valve Tricuspid valve grossly normal, there is mild tricuspid regurgitation, calculated right ventricular systolic pressure is 67 mmHg. Pulmonic Valve Pulmonic valve is poorly visualized, there is mild pulmonic insufficiency. Great Vessels Aortic root is normal size. Inferior vena cava is dilated without significant inspiratory collapse. Pericardium No significant pericardial effusion noted Conclusion 1. Moderate biatrial enlargement, normal left ventricular size, mild concentric left ventricular hypertrophy, visually estimated ejection fraction 55% with no regional wall motion abnormality, diastolic parameters are inconclusive. Flattening of the intraventricular septum during systole and diastole consistent with pressure and volume overload on right ventricle. 2. Moderately enlarged right ventricle with moderate reduction right ventricular contractility. 3. Mild mitral and tricuspid regurgitation, calculated right ventricular systolic pressure 67 mmHg. Inferior vena cava is dilated without significant inspiratory collapse wi
--- NOTE | 2020-07-18 05:11 | PC.NURSE ---
patient agreeable to rotation of 2 hours on and two hours off with bipap tonight. fio2 on bipap has been titrated down to 50% fio2 with sats maintaining greater than 91%. when on vapotherm patient sats will slowly decrease down to 88% at the two hour juan.
[2020-07-18 06:13] LABS: Basophils # 0.1 K/mm3 (0-0.2); Basophils % 0.6 % (0.1-2.0); Eosinophils # 0.2 K/mm3 (0.0-0.4); Eosinophils % 1.6 % (0.1-12.0); Hematocrit 44.6 % (37.0-47.0); Hemoglobin 14.2 g/dL (12.2-16.2); Lymphocytes # 1.1 K/mm3 (0.7-4.5); Lymphocytes % 10.3 % (10-50); Mean Corpuscular HGB Conc 31.8 g/dL (31.8-35.4); Mean Corpuscular Hemoglobin 27.1 pg (27.0-31.2); Mean Corpuscular Volume 85.2 fl (81-99); Mean Platelet Volume 8.4 fl (7.4-10.4); Monocytes # 1.1 K/mm3 (0.1-1.0); Monocytes % 10.5 % (1.7-9.3); Neutrophils # 8.1 K/mm3 (1.8-7.8); Neutrophils % 77.1 % (37.0-80.0); Platelet Count 192 K/mm3 (142-424); Red Blood Count 5.24 M/mm3 (4.20-5.40); Red Cell Distribution Width 16.4 % (11.5-17.5); White Blood Count 10.6 K/mm3 (4.8-10.8)
--- NOTE | 2020-07-18 06:17 | PC.NURSE ---
0600 fio2 increased to 60% on bipap for sats sustaining 89%.
[2020-07-18 06:23] LABS: Blood Urea Nitrogen 36 mg/dl (7-17); Calcium 8.9 mg/dl (8.4-10.2); Chloride 93 mmol/L (98-107); Creatinine Clearance Estimated 44 mL/min (50-200); Estimated Glomerular Filt Rate 60 ml/min (>60); GFR (African American) 73 ML/MIN (>60); Glucose 98 mg/dl (74-100); Potassium 3.8 mmoL/L (3.5-5.1); Sodium 140 mmol/L (136-145)
[2020-07-18 06:34] LABS: Anion Gap 9.8 mEq/L (5-15); Carbon Dioxide 41 mmol/L (22.0-30.0)
--- NOTE | 2020-07-18 07:25 | HMH.ACPN2 ---
Internal Medicine - PN: Subj *Date: 07/18/20 *Time: 07:25 Interval history: Patient has no complaints. O2 sats have been maintained in the high 80s to low 90s with either Vapotherm or use of BiPAP overnight. CT scan yesterday showed bilateral moderate pleural effusions, groundglass opacities, enlarged precarinal node. Exam Vital signs and Labs for Last 24 Hours: Temp Pulse Resp BP Pulse Ox 97.7 F 78 28 H 119/61 91 L 07/18/20 04:00 07/18/20 06:10 07/18/20 04:00 07/18/20 04:00 07/18/20 04:00 Laboratory Results - last 24 hr 07/18/20 05:48: WBC 10.6, RBC 5.24, Hgb 14.2, Hct 44.6, MCV 85.2, MCH 27.1, MCHC 31.8, RDW 16.4, Plt Count 192, MPV 8.4, Neut % (Auto) 77.1, Lymph % (Auto) 10.3, [place] % (Auto) 10.5 H, Eos % (Auto) 1.6, Baso % (Auto) 0.6, Neut # (Auto) 8.1 H, Lymph # (Auto) 1.1, [place] # (Auto) 1.1 H, Eos # (Auto) 0.2, Baso # (Auto) 0.1 07/18/20 05:48: Sodium 140, Potassium 3.8, Chloride 93 L, Carbon Dioxide 41 H*, Anion Gap 9.8, BUN 36 H, Creatinine 0.90, Estimated Creat Clear 44, Estimated GFR 60, Est GFR ( Amer) 73, Glucose 98, Calcium 8.9 I & O for Last 24 hours: Intake & Output 07/15/20 07/16/20 07/17/20 07/18/20 11:59 11:59 11:59 11:59 Intake Total 280 / 280 1655 / 1655 300 / 300 350 / 350 Output Total 1450 / 1450 2175 / 2175 2225 / 2225 2425 / 2425 Balance -1170 / -1170 -520 / -520 -192 / -192 -2074 / -2074 Weight 145 lb 2 oz 141 lb 3 oz 140 lb 6 oz Microbiology Reports for the Last 24 Hours: Microbiology 07/14/20 14:00 Nose - Nasal MRSA Culture - Final Negative Narrative: Patient appears comfortable this morning with no increased work of breathing. She is alert and oriented. Lungs have improved aeration at the right base with persistent distant/decreased breath sounds in the left. Heart rate is regular. Abdomen is soft. Lower extremities have no edema. Assessment and Plan (1) Acute respiratory failure with hypercapnia Status: Acute Category: Medical Code(s): J96.02 - Acute respiratory failure with hypercapnia (2) Severe sepsis with acute organ dysfunction Status: Acute Category: Medical Code(s): A41.9 - Sepsis, unspecified organism; R65.20 - Severe sepsis without septic shock (3) HCAP (healthcare-associated pneumonia) Status: Acute Category: Medical Code(s): J18.9 - Pneumonia, unspecified organism (4) CHF exacerbation Status: Acute Qualifiers: Heart failure type: unspecified Qualified Code(s): I50.9 - Heart failure, unspecified Category: Medical Code(s): I50.9 - Heart failure, unspecified (5) CAP (community acquired pneumonia) Status: Acute Qualifiers: Laterality: right Lung location: lower lobe of lung Qualified Code(s): J18.9 - Pneumonia, unspecified organism Category: Medical Code(s): J18.9 - Pneumonia, unspecified organism - Assessment and plan all Dx Assessment and Plan for all problems:: 1. Echocardiogram today to assess LV function. Increase Lasix to 80 mg twice daily 2. For patient's pneumonia she has completed an appropriate course of antibiotics with over 7 days of cefepime and today will be day 7 of Levaquin 3. Patient's pleural effusions in combination with her COPD are making it difficult to wean the patient back to nasal cannula. This may respond to increase Lasix however plan will be for ultrasound-guided thoracentesis tomorrow if patient is unable to wean further. Patient is currently on Xarelto and this will be held beginning this morning. Patient's last dose of Xarelto was yesterday evening 4. Consult pulmonary service for patient's enlarged carinal lymph node and COPD with chronic respiratory failure
--- NOTE | 2020-07-18 09:40 | PC.NURSE ---
CPT performed at this time.
--- NOTE | 2020-07-18 09:52 | HMH.PULMCON ---
*Admission Date: 07/09/20 *Reason for consult:: Hypoxic respiratory failure, pleural effusions, mediastinal adenopathy *History of present illness: Ms. Bolanos is a 79-year-old female as per the patient is a never smoker, significant secondhand exposure, carries a prior diagnosis COPD, intermittently used inhalers, not on home oxygen therapy until February 2020 where she was prescribed oxygen therapy however she is not compliant with that, diagnosis of congestive heart failure was admitted to the hospital on July 09 and has been having fluctuating hospital course with waxing and waning oxygen requirements eventually worsened and has been on BiPAP/high flow for the last couple of days has a recent CT without contrast performed that showed bilateral pleural effusions along with associated atelectasis/airspace disease, elevated left hemidiaphragm and lymphadenopathy, pulmonary was called for further management. [facility] History Medical History: Reports:: Atherosclerotic Heart Disease, Atrial Fibrillation, Congestive Heart Failure, Coronary Artery Disease, Gastroesophageal Reflux Disease(GERD), Hyperlipidemia, Hypertension, Internal Pacemaker, Palpitations Denies:: Cancer, Diabetes Mellitus Type 1, Diabetes Mellitus Type 2, MRSA *Have you ever received a pneumonia vaccine?: Yes *Have you received a flu vaccine this season?: Yes Other Medical History: Reports: Arthritis Laterality Cases: Right: Arthroscopy Knee, Bilateral: Carpal Tunnel Release, Other Other Surgeries: Yes: Angioplasty, Appendectomy, Hysterectomy-Total, Hysterectomy-Partial, Pacemaker, Other (Back surgery, Dental implant) Amputation: No Fractures: No - *Social History Last grade of school completed: GED Smoking Status: Never smoker Alcohol Intake: never Substance Use Type: denies use *Occupational Status:: retired Housing: house *Travel in the last 8 weeks: None Family Hx:: Cancer, Heart Attack, Tuberculosis ROS - Cons Reports body ache(s), Reports fatigue - Card Reports shortness of breath, Reports shortness of breath with activity, Reports leg sores - Resp Respiratory: Reports chest congestion, Reports cough, Denies pain with breathing - GI Gastrointestingal: Denies: abdominal pain - [place] Musculoskeletal: Reports joint pain, Reports back pain Meds Home Medications Medication Instructions Recorded Confirmed Type aspirin 81 mg tablet,delayed 81 mg PO DAILY tab 04/02/17 07/08/20 History release atorvastatin 80 mg tablet 80 mg PO HS #30 tab 09/15/19 07/08/20 Rx digoxin 125 mcg (0.125 mg) tablet 125 mcg PO DAILY #30 tab 09/15/19 07/08/20 Rx rivaroxaban 20 mg tablet 20 mg PO DAILY #30 tab 09/15/19 07/08/20 Rx levothyroxine 50 mcg tablet 50 mcg PO DAILY tab 12/15/19 07/08/20 History ropinirole 0.25 mg tablet 1 mg PO HS tab 03/29/20 07/08/20 History Buspirone HCl [Buspirone 15 mg 15 mg PO BID 07/08/20 07/08/20 History Tablets] Folic Acid 0.8 mg PO DAILY 07/08/20 07/08/20 History Furosemide [Furosemide 80mg Tab] 80 mg PO DAILY 07/08/20 07/08/20 History Ipratropium [place] [Ipratropium 2 spray NS BID 07/08/20 07/08/20 History [place] 0.021mg/act NS] Ropinirole HCl 0.5 mg PO DAILY 07/08/20 07/09/20 History bisoproloL fumarate [Bisoprolol 10 mg PO DAILY 07/08/20 07/08/20 History 10mg Tablet] dilTIAZem HCL [Cartia Xt] 180 mg PO DAILY 07/08/20 07/08/20 History Fluticasone Propionate 2 sprays INHALATION DAILY 07/09/20 07/09/20 History Allergies Allergy/AdvReac Type Severity Reaction Status Date / Time hydrogen peroxide Allergy Severe Blister Verified 07/08/20 18:19 amiodarone [AMIODARONE] Allergy Unknown Difficulty Verified 07/08/20 18:19 Breathing Exam - Constitutional Constitutional:: Present: comfortable - HENMT Exam HENMT: Present: atraumatic - Eye Exam Eyes:: Present: normal appearance both eyes and related structures - Neck Exam Neck:: Present: normal visual inspection - Respiratory Exam Respiratory:: Present: able to speak
--- NOTE | 2020-07-18 10:45 | PC.NURSE ---
late entry: notified Dr tijerina face to face of CO2 of 41 (previously 40) at 0716
--- NOTE | 2020-07-18 13:24 | PC.NURSE ---
Sputum induced. Pt unable to make productive cough. Encouraged to continue to cough. Specimen cup left at bedside.
--- NOTE | 2020-07-18 18:34 | PC.NURSE ---
Pt has rested well in her room this shift. she has been alert and oriented x4 and has been pleasant to converse with. pt states that she is unable to lift her arms well enough to feed herself or take a drink on her own. pt was fed all meals by nursing staff this shift. pt had good appetite at the beginning of the shift, but by the end of the day she was soa and wasnt able to eat or drink much. pt rested in the bed this shift and did not feel like getting up to the chair. discussed with pt importance of getting up to chair and states she will try tomorrow. lungs are clear but diminished, bowel sounds are active. pt complains of restless leg symptoms sporadically during the day.
[2020-07-19] VITALS (14 sets, daily range): BP systolic 93–128; BP diastolic 46–82; PULSE 69–117; RESP 20–36; TEMP 36.5–36.7; O2SAT 85–96
--- NOTE | 2020-07-19 04:24 | PC.NURSE ---
She slept with the bipap on a@ 60% FiO2. Vapotherm settings prior to wearing bipap were 35LPM 100% FiO2. Paced on telemetry.
--- NOTE | 2020-07-19 06:06 | PC.NURSE ---
Pt did not want CPT at this time. Stated she would do it later today.
--- NOTE | 2020-07-19 06:09 | PC.NURSE ---
Assist x2 to the chair. Vapotherm weaned to 30LPM FiO2 80%.
[2020-07-19 06:55] LABS: Basophils # 0.1 K/mm3 (0-0.2); Basophils % 0.7 % (0.1-2.0); Eosinophils # 0.3 K/mm3 (0.0-0.4); Eosinophils % 2.4 % (0.1-12.0); Hemoglobin 14.4 g/dL (12.2-16.2); Lymphocytes # 1.1 K/mm3 (0.7-4.5); Lymphocytes % 8.9 % (10-50); Mean Corpuscular Hemoglobin 26.9 pg (27.0-31.2); Mean Corpuscular Volume 84.2 fl (81-99); Mean Platelet Volume 8.1 fl (7.4-10.4); Monocytes % 8.5 % (1.7-9.3); Neutrophils # 9.6 K/mm3 (1.8-7.8); Neutrophils % 79.5 % (37.0-80.0); Platelet Count 246 K/mm3 (142-424); Red Blood Count 5.34 M/mm3 (4.20-5.40); Red Cell Distribution Width 16.6 % (11.5-17.5); White Blood Count 12.1 K/mm3 (4.8-10.8)
[2020-07-19 07:05] LABS: Blood Urea Nitrogen 37 mg/dl (7-17); Calcium 9.3 mg/dl (8.4-10.2); Chloride 86 mmol/L (98-107); Creatinine Clearance Estimated 44 mL/min (50-200); Estimated Glomerular Filt Rate 60 ml/min (>60); GFR (African American) 73 ML/MIN (>60); Glucose 113 mg/dl (74-100); Potassium 3.5 mmoL/L (3.5-5.1); Sodium 136 mmol/L (136-145)
--- NOTE | 2020-07-19 07:45 | P.PN_ITS ---
Internal Medicine - PN: Subj *Date: 07/19/20 *Time: 07:45 Interval history: Patient has no complaints this morning. No acute events over the last 24 hours. Patient continues to ask about discharge. Vapotherm has been weaned to an FiO2 of 80%. Patient's O2 sats remained in the high 80s to low 90s. Chest physiotherapy has yet to produce any sputum. Patient's incentive spirometry effort is weak Echocardiogram revealed a normal left ventricular systolic function with evidence of right-sided volume overload Exam Vital signs and Labs for Last 24 Hours: Temp Pulse Resp BP Pulse Ox 97.9 F 78 26 H 103/46 L 92 L 07/19/20 00:00 07/19/20 06:03 07/19/20 00:00 07/19/20 04:00 07/19/20 06:03 Laboratory Results - last 24 hr 07/19/20 06:15: WBC 12.1 H, RBC 5.34, Hgb 14.4, Hct 45.0, MCV 84.2, MCH 26.9 L, MCHC 32.0, RDW 16.6, Plt Count 246 D, MPV 8.1, Neut % (Auto) 79.5, Lymph % (Auto) 8.9 L, [place] % (Auto) 8.5, Eos % (Auto) 2.4, Baso % (Auto) 0.7, Neut # (Auto) 9.6 H, Lymph # (Auto) 1.1, [place] # (Auto) 1.0, Eos # (Auto) 0.3, Baso # (Auto) 0.1 I & O for Last 24 hours: Intake & Output 07/16/20 07/17/20 07/18/20 07/19/20 11:59 11:59 11:59 11:59 Intake Total 1655 / 1655 300 / 300 590 / 590 340 / 340 Output Total 2175 / 2175 2225 / 2225 2425 / 2425 1800 / 1800 Balance -520 / -520 -1925 / -1925 -1835 / -1835 -1460 / -1460 Weight 141 lb 3 oz 140 lb 6 oz - Constitutional no acute distress - *Routine Respiratory Exam Present: distant breath sounds, diminished air movement - *Routine Cardiovascular Exam Present: RRR - *Routine Abdominal Exam Present: soft, normoactive bowel sounds Assessment and Plan (1) Acute respiratory failure with hypercapnia Status: Acute Category: Medical Code(s): J96.02 - Acute respiratory failure with hypercapnia (2) Severe sepsis with acute organ dysfunction Status: Acute Category: Medical Code(s): A41.9 - Sepsis, unspecified organism; R65.20 - Severe sepsis without septic shock (3) HCAP (healthcare-associated pneumonia) Status: Acute Category: Medical Code(s): J18.9 - Pneumonia, unspecified organism (4) Chronic obstructive pulmonary disease, unspecified Status: Acute Category: Medical Code(s): J44.9 - Chronic obstructive pulmonary disease, unspecified (5) Thoracic kyphosis Status: Acute Category: Medical Code(s): M40.204 - Unspecified kyphosis, thoracic region (6) Chronic respiratory failure with hypoxia and hypercapnia Status: Acute Category: Medical Code(s): J96.11 - Chronic respiratory failure with hypoxia; J96.12 - Chronic respiratory failure with hypercapnia - Assessment and plan all Dx Assessment and Plan for all problems:: 1. Patient continues to be a slow wean from the Vapotherm in an attempt to get her back to nasal cannula oxygen. Continue chest physiotherapy, incentive spirometry, breathing treatments. 2. DC Mcmillan catheter today as well as market research specialist. 3. Encourage ambulation 4. Continue Lasix twice daily
--- NOTE | 2020-07-19 07:57 | PC.NURSE ---
welsh catheter discontinued. BSC placed in room for pt to use. Tele discontinued except for cont pulse ox. Current O2 sat is 88% on Vapotherm 30L 80%. Pt is A&O. Attempted IS but pt is unable to perform. Called RT (Chrystal) and ordered a flutter valve for pt to use. Will cont working with pt to increase IS volume.
--- NOTE | 2020-07-19 08:08 | PC.NURSE ---
pt able to use flutter valve. She coughs after use. Will cont Q1hr.
[2020-07-19 08:14] LABS: Anion Gap 8.5 mEq/L (5-15); Carbon Dioxide 45 mmol/L (22.0-30.0)
--- NOTE | 2020-07-19 08:30 | PC.NURSE ---
Dr. Pedro notified of CO2 45.
--- NOTE | 2020-07-19 09:43 | CA_ITS ---
APPROVED REPORT Bilateral Lower Extremity Venous Study for DVT. Dough Cutting Machine Operator: CT Indications Lower Extremity Edema: Hypoxia and LE Swelling Vein Imaging CFV (R): compressive, spontaneous, phasic, augmentation SFJ (R): compressive, spontaneous, phasic, augmentation FEM (R): compressive, spontaneous, phasic, augmentation POP (R): compressive, spontaneous, phasic, augmentation DFV (R): compressive, spontaneous, phasic, augmentation PTV (R): compressive, spontaneous, phasic, augmentation GSV (R): compressive, spontaneous, phasic, augmentationcompressive, spontaneous, phasic, augmentationcompressive, spontaneous, phasic, augmentation Peroneals (R):compressive, spontaneous, phasic, augmentation GAS (R): compressive, spontaneous, phasic, augmentation CFV (L): compressive, spontaneous, phasic, augmentation SFJ (L): compressive, spontaneous, phasic, augmentation FEM (L): compressive, spontaneous, phasic, augmentation POP (L): compressive, spontaneous, phasic, augmentation DFV (L): compressive, spontaneous, phasic, augmentation PTV (L): compressive, spontaneous, phasic, augmentation GSV (L): compressive, spontaneous, phasic, augmentation Peroneals (L):compressive, spontaneous, phasic, augmentation GAS (L): compressive, spontaneous, phasic, augmentation Findings Bilateral venous negative for DVT/SVT. Vessels fully compressible Conclusion Bilateral venous negative for DVT/SVT. Vessels fully compressible Electronically signed by : Bobby Tabor MD 07/19/2020 17:32:05
--- NOTE | 2020-07-19 09:52 | HMH.PULMPN ---
Internal Medicine - PN: Subj *Date: 07/19/20 *Time: 09:52 Interval history: No acute respiratory events overnight. Patient remained stable with slight decrease in her FiO2 requirements to 80% Exam - Constitutional Constitutional:: Present: no acute distress, comfortable - HENMT Exam HENMT: Present: normocephalic, atraumatic - Eye Exam Eyes:: Present: eyelids normal - Neck Exam Neck:: Present: normal visual inspection - Respiratory Exam Respiratory:: Present: able to speak in complete sentences, respiratory distress, crackles. Absent: accessory muscle use, wheezing - Cardiovascular Exam Cardiac:: Present: S1, S2 - GI Exam GI:: Present: soft - Skin Exam Skin: Present: warm, no rash - Neurological Exam Neurological: Present: alert, awake, normal cognition - Extremities Exam Extremities: Present: no cyanosis, no clubbing, edema - Psychiatric Exam Psychiatric: Present: normal affect Assessment and Plan (1) Acute respiratory failure with hypercapnia Status: Acute Category: Medical Code(s): J96.02 - Acute respiratory failure with hypercapnia (2) Severe sepsis with acute organ dysfunction Status: Acute Category: Medical Code(s): A41.9 - Sepsis, unspecified organism; R65.20 - Severe sepsis without septic shock (3) HCAP (healthcare-associated pneumonia) Status: Acute Category: Medical Code(s): J18.9 - Pneumonia, unspecified organism (4) Chronic obstructive pulmonary disease, unspecified Status: Acute Category: Medical Code(s): J44.9 - Chronic obstructive pulmonary disease, unspecified (5) Thoracic kyphosis Status: Acute Category: Medical Code(s): M40.204 - Unspecified kyphosis, thoracic region (6) Chronic respiratory failure with hypoxia and hypercapnia Status: Acute Category: Medical Code(s): J96.11 - Chronic respiratory failure with hypoxia; J96.12 - Chronic respiratory failure with hypercapnia - Assessment and plan all Dx Assessment and Plan for all problems:: #Acute on chronic hypoxic respiratory failure: #Hypercarbic respiratory failure #Pneumonia: #Mediastinal lymphadenopathy: Ms. Bolanos is a 79-year-old female as per the patient is a never smoker, significant secondhand exposure, carries a prior diagnosis COPD, intermittently used inhalers, not on home oxygen therapy until February 2020 where she was prescribed oxygen therapy however she is not compliant with that, diagnosis of congestive heart failure was admitted to the hospital on July 09 and has been having fluctuating hospital course with waxing and waning oxygen requirements eventually worsened and has been on BiPAP/high flow for the last couple of days has a recent CT without contrast performed that showed bilateral pleural effusions along with associated atelectasis/airspace disease, elevated left hemidiaphragm and lymphadenopathy, pulmonary was called for further management. On this hospital admission patient urine culture positive for E. coli and blood culture in one bottle positive for staph epi. Nasal MRSA culture negative. Sputum sample available. Leukocytosis improving/relatively stable. Patient afebrile. Patient this admission also noted to have recurrent hypercarbic respiratory failure as evidenced by ABGs. Her ABG on admission showed a PCO2 of 162 with a pH of 6.99. Interval update: Patient respiratory remained stable select improvement in her oxygen requirements. Patient does not appear to be in any respiratory distress. Alert awake. No wheezing noted. Bilateral crackles decreased along with decreased breath sounds on the lung bases left greater than right noted. No wheezing heard. Plan: -PT OT evaluation and therapy -Continue oxygen supplementation currently on high flow nasal cannula 80%. We will continue to wean as tolerated. - Initiate BiPAP therapy at night at 8/12 given her recurrent hypercarbic respiratory failure episodes during his hospital admission - Incentive spirometry as tolerated along
--- NOTE | 2020-07-19 10:49 | HMH.OTEV ---
OT Inpatient Evaluation Rehab OT IP Evaluation Start: 07/19/20 09:44 Freq: ONCE Status: Complete Protocol: Document 07/19/20 10:[address] [facility] (Rec: 07/19/20 10:[address] [facility] [id number]) Rehab OT IP Assessment Subjective History Pt oriented x 3 on arrival. Pt resting in chair and agreeable to engage in therapy evaluation. Pt was admitted via ED on 07/08/20 due to Dyspnea, AMS, and diminished urine output. Pt has a past medical history of CHF, CAD, A -fib, DM type 2, GERD, Hyperlipidemia, HTN, Internal pacemaker, Palpitations. Pt reports prior to being hospitalized she lived at home alone. However, he family was there every single day checking on her and assisting with IADL's. Pt claims she was independent with ADL's. Pt did use walker during ambulation. Subjective I have carpal tunnel. Pt was resting in chair on arrival. Pt demonstrates poor core control and is very unbalanced when she sat up in chair without back support. Therapists biggest concern with the flacidity in her right and left arm. Pt was unable to move arms in flexion at shoulder, or elbow extension. Left side seems to be worse. Pt appears to be extremely weak. Objective Patient Orientation Person,Place,Birthday Upper Extremity Gross ROM Mod Limitation 50% Shoulder ROM Limitations Muscle Weakness Elbow ROM Limitations Muscle Weakness Wrist Limitations of Range of Motion Muscle Weakness Bed Mobility bed mobility-scooting,bed mobility - supine/sit,bed mobility - rolling Assist Level Maximum x 2 (75% assist) Transfer Training Sit/Stand/Pivot Transfer Assist Level Maximum x 1 (75% assist) Chair Transfer Ability Maximum x 1 (75% assist) Chair Transfer Technique Squat Pivot Rehab OT IP prob,goals,plan Problem
--- NOTE | 2020-07-19 11:09 | HMH.PTEV ---
Physical Therapy Evaluation Rehab PT IP Evaluation Start: 07/19/20 09:45 Freq: ONCE Status: Active Protocol: Document 07/19/20 10:00 [facility] (Rec: 07/19/20 11:08 [facility] [id number]) Subjective/History History History 79 yowf adm to [facility] [place] 07/08/20 with sepsis and poss CHF exac. Long hospital stay with HAP and continued need for increased oxygen via vapotherm . She reports she has family to assist her at home and was walking with a rolling walker prior to adm. Subjective Subjective Currently pt reports no c/o pain, only inability to move her arms. Rehab PT IP Eval Objective Appearance Patient Behavior Appropriate Patient Orientation Person,Place,Time Difficulty following instructions none Speech Pattern Clear Ambulation Patient Able to Ambulate No Balance Ability to Arise Able, uses arms to help Sitting Balance Leans or slides in chair Standing Balance Steady, wide stance Dynamic Sitting Balance Ability Poor Dynamic Standing Balance Ability Fair Transfers Bed Transfer Ability Moderate x 1 (50% assist) Chair Transfer Ability Moderate x 1 (50% assist) Sit to Stand Bed Transfer Ability Moderate x 1 (50% assist) Sit to Stand Chair Transfer Ability Moderate x 1 (50% assist) ROM RUE PT ROM Status WFL Abnormal ROM Comment PROM only LUE PT ROM Status WFL Abnormal ROM Comment PROM only MMT RUE PT MMT ABN Abnormal MMT Grade mostly flaccid with 2/5 strength in L hand and forearm only. LUE PT MMT ABN Abnormal MMT Grade flaccid with 1/5 strength in the L hand only Rehab PT IP prob,goals,plan Problems Date of Evaluation: 07/19/20 PT IP Problems Bed Mobility,Transfers,Gait, Balance,Self care Rehab Potential Rehab Potential Good Plan PT Intervention Plan Bed Mobility,Transfers,Gait, Balance,Self care,Therapeutic Exercise PT Plan Frequency BID Duration LOS Discharge Goals Bed Transfer Ability Minimal x 2 (25% assist) Sit to Stand Chair Transfer Ability Minimal x 2 (25% assist) Ambulation Distance (feet) 10 Dis
--- NOTE | 2020-07-19 11:43 | CT_ITS ---
PROCEDURE: CT CERVICAL SPINE WO CON CLINICAL INDICATION: weakness/paralysis of bilat. arms COMPARISON: CT CT CERVICAL SPINE WO CON from 07/08/2020 CR XR CHEST PORTABLE from 07/08/2020 TECHNIQUE: Axial images obtained with sagittal and coronal reformats. All CT scans at the facility use one or more dose reduction, viz: automated exposure control, ma/kV adjustment per patient size (including targeted exams where dose is matched to indication, i.e. head), or iterative reconstruction technique. Axial spiral CT scanning performed of the cervical spine beginning at the base of the skull and continuing to the upper T-spine. 3-D multiplanar reconstruction with 3-D manipulation of volumetric data set in image rendering was completed by the radiologist and/or technologist with the supervision of the radiologist on independent workstation. FINDINGS: Once again partially calcified masslike lesion at the inferior tip clivus extending inferiorly posteriorly along mid aspect of the C2 vertebral body measuring 3 cm cephalad caudad and 1.3 cm AP and 2 cm transverse. Motion artifact somewhat obscures fine detail. This is causing severe canal stenosis centrally and on the right with the canal measuring approximately 6 mm in AP dimension and likely is causing cord compression. There is very poor resolution the cervical cord. MRI would be of better value however I see from prior chest x-rays patient has a pacemaker. Would suggest performing CT of the C-spine with IV contrast if patient's renal function permits. This may merely represent prominent pannus formation however, a more ominous process such is a partially calcified metastatic focus or meningioma would be included in the differential diagnosis. A sub chondral cystic lesion is present at the base of the odontoid posteriorly there is some discontinuity of the bone at this area. This was better circumscribed on the previous exam probably related to decreased motion artifact as compared to lytic process. C2-C3: Degenerative disc disease with endplate hypertrophy with bilateral foraminal narrowing left greater than right. Canal stenosis. C3-C4: 3 mm anterolisthesis of C4 with severe bilateral foraminal narrowing from facet and uncovertebral hypertrophy and degenerative disc disease. C4-C5: Degenerative disc disease with bilateral foraminal narrowing and narrowing of the canal at 8 mm. Mild bulging disc C5-C6: Degenerative disc disease with bilateral foraminal narrowing. C6-C7: Mild degenerative disc disease. C7-T1: Unremarkable There is mild diffuse ground-glass attenuation within the upper lung zones and mid lung zones greater on the right. IMPRESSION: 1. Multilevel cervical spondylosis with canal stenosis lateral recess narrowing and foraminal narrowing. Please see above for detailed description at each level. 2. Overall no significant change in the partially calcified masslike lesion along the posterior aspect of the odontoid as described above which is central and to the right causing canal stenosis and likely impinging upon the spinal cord with right lateral recess narrowing. This may be due to prominent pannus formation. Neoplasm such as meningioma and metastatic disease would also be included in the differential diagnosis. 3. Diffuse ground-glass attenuation of the mid and upper lung zones Dictated by: Bobby Tabor MD 07/19/2020 16:49 Bobby Tabor MD in [facility] 07/19/2020 16:49
--- NOTE | 2020-07-19 17:45 | PC.NURSE ---
shift note: pt now on 35L/100% Vapotherm secondary to O2 sat mid 80s. Has been A&O. Sat in chair for aprox 4hrs. Tolerates chest physiotherapy well. Not able to complete IS but is able to blow in flutter valve. Uses BSC. Has had 2 BMs today. Needed assistance with stool removal. Has voided a small amount x 2 (aprox 25mL each time) with each BM. Pt denies pain and/or discomfort.
--- NOTE | 2020-07-19 18:46 | PC.NURSE ---
Vapotherm increased to 40L/100% secondary to O2 sat 83-84%.
--- NOTE | 2020-07-19 19:19 | PC.NURSE ---
Sats not increasing with Vapotherm 40L/100%. Switched to Bipap 80%. O2 sat now 93%.
[2020-07-20] VITALS (13 sets, daily range): BP systolic 102–126; BP diastolic 45–63; PULSE 71–80; RESP 8–47; TEMP 36.5–37.1; O2SAT 75–93; BMI 24.5
--- NOTE | 2020-07-20 01:15 | PC.NURSE ---
0030 patient requested break from bipap after being on it since before shift change, with 15 min o2 sats dropped to 82% on vapotherm. bipap placed back on
--- NOTE | 2020-07-20 04:54 | PC.NURSE ---
Addendum entered by iVdya Etienne RN 07/20/20 05:41: incontinent episode required complete bed change. Original Note: patient has been unable to be off of bipap without quickly desating. when on vapotherm patient unable to speak complete sentences without becoming breathless. patient has rested on bipap at 80% with sats 92-93%, sats sustain 89% on 70% fio2. patient has been incontinent of urine. purwick placed for more accurate i&o. patient remains awake and oriented
--- NOTE | 2020-07-20 05:42 | PC.NURSE ---
patient o2 sats sustaining 87% after current oral care performed, fio2 increased to 90% with sats of 90%. has had loose cough but unable to clear secretions
--- NOTE | 2020-07-20 05:54 | PC.NURSE ---
sats back down to 88-89% even on 90% fio2, rt called for breathing treatment, discussed cough and inability to clear secretions and possible suctioning. questionable if patient could tolerate deep suctioning
--- NOTE | 2020-07-20 06:19 | PC.NURSE ---
twan now sustaining 95% on 90% fio2 after receiving breathing treatment. will continue to monitor.
--- NOTE | 2020-07-20 06:35 | SW/DCPLANNER ---
Addendum entered by Nereyda Roca 07/21/20 10:13: SENT REFERRAL TO [facility] THIS MORNING AFTER DR GALO HAD A ANN TALK WITH MS RANDALL REGARDING HER CONDITION.. HE EXPRESSED TO HER THAT SHE WAS NOT GOING TO GET ANY BETTER AND WAS GOING TO HAVE HOSPICE TO COME AND SEE HER AND DISCUSS OPTIONS.. I HAVE SPOKEN WITH DAUGHTER, AND SHE IS PLANNING ON BEING HERE WHEN THEY GET HERE..WILL DISCUSS A DISCHARGE PLAN ONCE HOSPICE GETS HERE TO SEE PATIENT... NOT SURE IF THE CARE CENTER OR GOING HOME IS WHAT THE FAMILY WISHES TO DO... Original Note: PATIENT CONTINUES TO REMAIN ON VAPOTHERM AND YESTERDAY WAS SITTING UP IN THE CHAIR... SOME CONFUSION NOTED BY STAFF OFF AND ON..PATIENT IS FROM HOME BUT IT DOESN'T APPEAR SHE IS GOING TO BE ABLE TO RETURN BACK RIGHT AFTER HER DISCHARGE FROM THE HOSPITAL..WE HAVE DISCUSSED A SWING BED BUT PATIENT AT THIS TIME IS NOT MEDICALLY STABLE TO CONVERT TO A SWING BED STATUS.. WHEN I HAVE SPOKEN WITH PATIENT SHE APPEARS TO BE ALERT AND ORIENTED BUT DOES HAVE MOST OF HER CONFUSION AT NIGHT.. CM WILL FOLLOW AND ASSIST WITH DISCHARGE PLANNING PATIENT BECOMES MEDICALLY STABLE TO DO SO...
--- NOTE | 2020-07-20 07:25 | HMH.ACPN2 ---
Internal Medicine - PN: Subj *Date: 07/20/20 *Time: 07:25 Interval history: Due to patient's difficulty moving upper extremities decision was made to proceed with CT scan of the neck yesterday. Patient has severe cervical spine stenosis. Patient continues to deny fall and admits that her symptoms were present prior to hospitalization regarding upper extremity weakness and paresthesias of the hands. After CT scan nursing staff reported patient's O2 sats were difficult to maintain with use of the Vapotherm and ultimately she ended up back on BiPAP which was continued overnight into this morning. Exam Vital signs and Labs for Last 24 Hours: Temp Pulse Resp BP Pulse Ox 98.3 F 75 28 H 102/63 L 93 L 07/20/20 04:00 07/20/20 05:59 07/20/20 04:00 07/20/20 04:00 07/20/20 04:00 Laboratory Results - last 24 hr 07/19/20 06:15: Sodium 136, Potassium 3.5, Chloride 86 L, Carbon Dioxide 45 H*, Anion Gap 8.5, BUN 37 H, Creatinine 0.90, Estimated Creat Clear 44, Estimated GFR 60, Est GFR ( Amer) 73, Glucose 113 H, Calcium 9.3 I & O for Last 24 hours: Intake & Output 07/17/20 07/18/20 07/19/20 07/20/20 11:59 11:59 11:59 11:59 Intake Total 300 / 300 590 / 590 580 / 580 600 / 600 Output Total 2225 / 2225 2425 / 2425 1950 / 1950 45 / 45 Balance -1925 / -1925 -1835 / -1835 -1370 / -1370 555 / 555 Weight 140 lb 6 oz 133 lb 4 oz Narrative: Patient is awake sitting up in bed with BiPAP in place. She answers questions appropriately. BiPAP does make conversation difficult. Lungs remain distant and diminished. Heart has a regular rate and rhythm. Abdomen is soft and obese. Lower extremities have no edema. Assessment and Plan (1) Acute respiratory failure with hypercapnia Status: Acute Category: Medical Code(s): J96.02 - Acute respiratory failure with hypercapnia (2) Severe sepsis with acute organ dysfunction Status: Acute Category: Medical Code(s): A41.9 - Sepsis, unspecified organism; R65.20 - Severe sepsis without septic shock (3) HCAP (healthcare-associated pneumonia) Status: Acute Category: Medical Code(s): J18.9 - Pneumonia, unspecified organism (4) Chronic obstructive pulmonary disease, unspecified Status: Acute Category: Medical Code(s): J44.9 - Chronic obstructive pulmonary disease, unspecified (5) Thoracic kyphosis Status: Acute Category: Medical Code(s): M40.204 - Unspecified kyphosis, thoracic region (6) Chronic respiratory failure with hypoxia and hypercapnia Status: Acute Category: Medical Code(s): J96.11 - Chronic respiratory failure with hypoxia; J96.12 - Chronic respiratory failure with hypercapnia (7) Cervical stenosis of spine Status: Acute Category: Medical Code(s): M48.02 - Spinal stenosis, cervical region - Assessment and plan all Dx Assessment and Plan for all problems:: 1. Patient will continue on BiPAP this morning with attempt to transition back to Vapotherm this evening. 2. Continue twice daily Lasix with close monitoring of I's and O's as well as patient's weight
--- NOTE | 2020-07-20 09:12 | PC.NURSE ---
pt refusing Bipap and wiggling nose to get mask down on her face. RT ([place]) switched Bipap to Vapotherm 40L/100%. O2 sat 86%.
--- NOTE | 2020-07-20 09:17 | PC.NURSE ---
100% NRB mask applied over Vapotherm as O2 sat continues mid 80s.
--- NOTE | 2020-07-20 09:25 | XR_ITS ---
PROCEDURE: XR CHEST PORTABLE CLINICAL HISTORY: resp distress, decreased lung sounds COMPARISON: CR XR CHEST PORTABLE from 07/08/2020 CR XR CHEST PORTABLE from 07/09/2020 CR XR CHEST PORTABLE from 07/14/[address] CHEST WO CON from 07/17/2020 FINDINGS: Borderline cardiomegaly. Bipolar pacemaker is present from left subclavian approach. Diffuse increased density in both mid and lower lung zones which has progressed from the previous exam and may be due to worsening pneumonia or pulmonary edema. There are bilateral pleural effusions present. No acute bony abnormalities. IMPRESSION: Worsening bilateral airspace disease with bilateral effusions Dictated by: Bobby Tabor MD 07/20/2020 10:13 Bobby Tabor MD in [facility] 07/20/2020 10:13
--- NOTE | 2020-07-20 10:30 | PC.NURSE ---
Bladder distention noted. Pt has not urinated this AM. Bladder scan reveals > 500mL urine. Contacted Dr. Pedro, who ordered to reinsert welsh catheter. After reinsertion of catheter, UOP is 680mL. UA sent to lab per protocol.
[2020-07-20 10:42] LABS: Microscopic, Urine URINE MICROSCOPIC (MICROSCOPIC)
[2020-07-20 10:55] LABS: Appearance,Urine SL CLOUDY (Clear); Bilirubin,Urine Negative (Negative); Blood, Urine 3+ (Negative); Color,Urine YELLOW (Yellow); Glucose,Urine (UA) Negative (Negative); Ketones,Urine Negative (Negative); Leukocyte Esterase,Urine Negative (Negative); Nitrate,Urine Negative (Negative); Protein,Urine TRACE (Negative); Urobilinogen,Urine 0.2 EU/dl (0.2)
--- NOTE | 2020-07-20 10:59 | HMH.PULMPN ---
Internal Medicine - PN: Subj *Date: 07/20/20 *Time: 10:59 Interval history: Patient respiratory status worsened from yesterday. Exam - Constitutional Constitutional:: Absent: no acute distress - HENMT Exam HENMT: Present: normocephalic, atraumatic - Eye Exam Eyes:: Present: normal appearance both eyes and related structures - Neck Exam Neck:: Present: normal visual inspection - Respiratory Exam Respiratory:: Present: able to speak in complete sentences, respiratory distress, crackles - Cardiovascular Exam Cardiac:: Present: S1, S2 - GI Exam GI:: Present: soft - Skin Exam Skin: Present: warm, no rash - Neurological Exam Neurological: Present: alert, awake, normal cognition - Extremities Exam Extremities: Present: no cyanosis, no clubbing, edema Assessment and Plan (1) Acute respiratory failure with hypercapnia Status: Acute Category: Medical Code(s): J96.02 - Acute respiratory failure with hypercapnia (2) Severe sepsis with acute organ dysfunction Status: Acute Category: Medical Code(s): A41.9 - Sepsis, unspecified organism; R65.20 - Severe sepsis without septic shock (3) HCAP (healthcare-associated pneumonia) Status: Acute Category: Medical Code(s): J18.9 - Pneumonia, unspecified organism (4) Chronic obstructive pulmonary disease, unspecified Status: Acute Category: Medical Code(s): J44.9 - Chronic obstructive pulmonary disease, unspecified (5) Thoracic kyphosis Status: Acute Category: Medical Code(s): M40.204 - Unspecified kyphosis, thoracic region (6) Chronic respiratory failure with hypoxia and hypercapnia Status: Acute Category: Medical Code(s): J96.11 - Chronic respiratory failure with hypoxia; J96.12 - Chronic respiratory failure with hypercapnia (7) Cervical stenosis of spine Status: Acute Category: Medical Code(s): M48.02 - Spinal stenosis, cervical region - Assessment and plan all Dx Assessment and Plan for all problems:: #Acute on chronic hypoxic respiratory failure: #Hypercarbic respiratory failure #Pneumonia: #Mediastinal lymphadenopathy: #Pulmonary hypertension Ms. Bolanos is a 79-year-old female as per the patient is a never smoker, significant secondhand exposure, carries a prior diagnosis COPD, intermittently used inhalers, not on home oxygen therapy until February 2020 where she was prescribed oxygen therapy however she is not compliant with that, diagnosis of congestive heart failure was admitted to the hospital on July 09 and has been having fluctuating hospital course with waxing and waning oxygen requirements eventually worsened and has been on BiPAP/high flow with CT without contrast performed that showed bilateral pleural effusions along with associated atelectasis/airspace disease, elevated left hemidiaphragm and lymphadenopathy, pulmonary was called for further management. On this hospital admission patient urine culture positive for E. coli and blood culture in one bottle positive for staph epi. Nasal MRSA culture negative. Sputum sample available. Patient this admission also noted to have recurrent hypercarbic respiratory failure as evidenced by ABGs. Her ABG on admission showed a PCO2 of 162 with a pH of 6.99. Interval update: Patient respiratory status worsened from yesterday. This morning she is on high flow nasal cannula along with non-rebreather saturating 88% appears more distressed compared to yesterday. Patient chest x-ray bilateral worsening airspace disease. T Patient not adequately responding to diuresis and x-ray showed worsening effusions. Patient chest x-ray showed worsening airspace disease concern for aspiration, will proceed with swallow evaluation. Lower extremity Doppler did not show any evidence of pulmonary embolism. Patient also has been receiving Xarelto since this admission. Overall This patient is having multiple comorbidities including congestive heart failure, evidence of pulmonary hypertension/RV strain on the echo,
--- NOTE | 2020-07-20 10:59 | PC.NURSE ---
spoke to Dr. Bear. He wants a BS swallow eval. Order entered on his behalf.
[2020-07-20 12:05] LABS: NT Pro Brain Natriuretic Pep. 7930 pg/mL (0-450)
[2020-07-20 12:08] LABS: Troponin I 0.06 ng/ml (0.00-0.034)
--- NOTE | 2020-07-20 14:40 | HMH.SLDYSPHA ---
Speech & Language Evaluation Speech/Language Dysphagia Evaluation Start: 07/20/20 14:26 Freq: ONCE Status: Active Protocol: Document 07/20/20 14:26 VIELKA (Rec: 07/20/20 14:40 VIELKA [id number]) Dysphagia Assess/Goals/Plan Assessment Date of Evaluation: 07/20/20 Evaluation Type Initial Certification Assessment/Problems Dysphagia Does Patient Qualify for Service No Qualify/Failure Comment Patient exhibited no overt s/s of dysphagia Recommendations PHYSICIAN CERTIFICATION: The specified therapy services are required, authorized, and reviewed every 30 days. Diet Recommendations Mechanical Soft Liquid Type Recommendations Normal/Thin SL Swallow Guidelines Standard Aspiration Prec. Dysphagia Swallow Precautions/Strategies Sitting Upright (90 deg),Small Bites and Sips,Alternate Liquids/Solids Plan Pt/Guardian verbally ack understanding Yes of dx/prognosis/goals G -code Required No Speech & Language HPI Language Primary Language Hebrew General Information General Current Food Consistancy Mechanical Soft,Chopped Meats, Thin Liquids Dentition Upper & Lower Dentures Oxygen Status Non-Rebreather,Vapotherm Facial Symmetry Symmetrical Patient Orientation Person,Place Ability to Follow Directions Excellent Dysphagia:Food Presentation Evaluation Food Type Pureed,Mechanical Soft,Liquid, Pudding Dysphagia Evaluation Summary Ms. Bolanos was given the following consistencies: thins via straw and open cup, pudding, pureed, and mechanical soft. No overt s/s of dysphagia noted. At this time, it is recommended she be placed on mechanical soft with chopped meats with gravy/ sauce with thin liquids due to decreased respiratory status. Stroke Dysphagia Assessment PHYSICIAN CERTIFICATION: I certify the specified therapy services for Aleja Bolanos are required, authorized, and reviewed every 30 days.
--- NOTE | 2020-07-20 15:54 | PC.NURSE ---
Pt refusing BiPAP at this time. Pt on vapotherm 40L 100% with nonrebreather sating 83%. Explained the benefit of BiPAP, pt continues to refuse.
--- NOTE | 2020-07-20 16:24 | PC.NURSE ---
O2 sat remains 79-80% on 100% NRB mask and Vapotherm 40L/100%. Pt continues to refuse Bipap mask. She denies being in distress. Explained to pt what would happen if she continues to refuse Bipap. She is A&O and verbalized understanding.
--- NOTE | 2020-07-20 17:23 | PC.NURSE ---
pt now in resp distress with O2 sat 75%. After much discussion again, she is agreeable to Bipap. Called RT (Cindy).
--- NOTE | 2020-07-20 17:42 | PC.NURSE ---
Pt now on Bipap 100%. O2 sat 90%.
--- NOTE | 2020-07-20 18:22 | PC.NURSE ---
O2 sat 94% on 100% Bipap
--- NOTE | 2020-07-20 21:16 | PC.NURSE ---
patient much more week this shift compared to previous days. removed bipap and placed on vapotherm for medication administration and oral care. patient disoriented, speech mumbled and very soft. patient unable to suck through straw. patient sats dropped to 85% with vapotherm on within 5 min. when bipap placed back on patient became very tearful, sats have been maintaining 91% on 100% fio2 on the bipap.
[2020-07-21] VITALS (8 sets, daily range): BP systolic 95–107; BP diastolic 46–52; PULSE 73–79; RESP 8–22; TEMP 36.6–37.6; O2SAT 89–97; BMI 24.7
--- NOTE | 2020-07-21 03:50 | PC.NURSE ---
2300 respiratory therapy notified of patient sustaining sats of 88% on 100%. adjustments made per rt sats have been consistently 90-91% since that time. patient is resting comfortably being turned q 2 hrs.
--- NOTE | 2020-07-21 06:00 | PC.NURSE ---
patient has rested well throughout night, this am bath given patient awake and alert. appears to be stronger, shakes head yes when asked if she feels better. will assess orientation and strength of speech when resp therapy arrives to give breathing treatment.
--- NOTE | 2020-07-21 06:41 | PC.NURSE ---
patient appears much stronger this am, voice stronger, vocabulary more clear. able to drink from straw this am o2 sats down to 85% and sustaining on vapotherm. 40 l, 100%.
--- NOTE | 2020-07-21 06:57 | PC.NURSE ---
patient sats down to 83 and dropping with 15 min. bipap placed back on, recovery time back to 94% with 5 min.
--- NOTE | 2020-07-21 07:51 | HMH.ACPN2 ---
Internal Medicine - PN: Subj *Date: 07/21/20 *Time: 07:51 Interval history: Patient has remained on BiPAP for the majority of the last 24 hours. She is having brief respites onto Vapotherm with desats into the mid 80s within 15 minutes. Patient has been more awake according to nursing staff while she is on BiPAP. Exam Vital signs and Labs for Last 24 Hours: Temp Pulse Resp BP Pulse Ox 97.8 F 76 20 107/46 L 92 L 07/21/20 04:00 07/21/20 06:15 07/21/20 04:00 07/21/20 04:00 07/21/20 06:36 Laboratory Results - last 24 hr 07/20/20 10:25: Urine Color Yellow, Urine Appearance Sl cloudy, Urine pH 6.0, Ur Specific [place] 1.020, Urine Protein Trace, Urine Glucose (UA) Negative, Urine Ketones Negative, Urine Blood 3+, Urine Nitrate Negative, Urine Bilirubin Negative, Urine Urobilinogen 0.2, Ur Leukocyte Esterase Negative, Urine RBC 10-20, Urine WBC 3-5, Ur Squamous Epith Cells 3-5, Urine Bacteria None 07/20/20 11:25: Troponin I 0.06 H, NT-Pro-B Natriuret Pep 7930 H I & O for Last 24 hours: Intake & Output 07/18/20 07/19/20 07/20/20 07/21/20 11:59 11:59 11:59 11:59 Intake Total 590 / 590 580 / 580 600 / 600 Output Total 2425 / 2425 1950 / 1950 725 / 725 600 / 600 Balance -1835 / -1835 -1370 / -1370 -125 / -125 -600 / -600 Weight 140 lb 6 oz 133 lb 4 oz 134 lb 3.2 oz Narrative: Patient is wearing BiPAP. She shows no increased work of breathing. To allow for conversation she was transitioned to Vapotherm and almost immediately upon application of Vapotherm patient desatted into the mid 80s. Lungs are clear anteriorly with diminished/absent breath sounds at the bases. Heart has a regular rate and rhythm. Assessment and Plan (1) Acute respiratory failure with hypercapnia Status: Acute Category: Medical Code(s): J96.02 - Acute respiratory failure with hypercapnia (2) Severe sepsis with acute organ dysfunction Status: Acute Category: Medical Code(s): A41.9 - Sepsis, unspecified organism; R65.20 - Severe sepsis without septic shock (3) HCAP (healthcare-associated pneumonia) Status: Acute Category: Medical Code(s): J18.9 - Pneumonia, unspecified organism (4) Chronic obstructive pulmonary disease, unspecified Status: Acute Category: Medical Code(s): J44.9 - Chronic obstructive pulmonary disease, unspecified (5) Thoracic kyphosis Status: Acute Category: Medical Code(s): M40.204 - Unspecified kyphosis, thoracic region (6) Chronic respiratory failure with hypoxia and hypercapnia Status: Acute Category: Medical Code(s): J96.11 - Chronic respiratory failure with hypoxia; J96.12 - Chronic respiratory failure with hypercapnia (7) Cervical stenosis of spine Status: Acute Category: Medical Code(s): M48.02 - Spinal stenosis, cervical region (8) Pulmonary artery hypertension Status: Acute Category: Medical Code(s): I27.21 - Secondary pulmonary arterial hypertension - Assessment and plan all Dx Assessment and Plan for all problems:: 1. Patient is slowly declining and it is only BiPAP that is keeping her sats in an appropriate range. A discussion was had with the patient regarding the fact that she is now been hospitalized for nearly 2 weeks and has made very little, if any, progress. Hospice will be consulted to explain the role and end-of-life care.
--- NOTE | 2020-07-21 10:41 | HMH.PULMPN ---
Internal Medicine - PN: Subj *Date: 07/21/20 *Time: 10:41 Interval history: Patient respiratory status showed no improvement from yesterday. She denies any new complaint. Exam - Constitutional Constitutional:: Absent: comfortable - HENMT Exam HENMT: Present: normocephalic, atraumatic - Eye Exam Eyes:: Present: normal appearance both eyes and related structures - Neck Exam Neck:: Present: normal visual inspection - Respiratory Exam Respiratory:: Present: able to speak in complete sentences, respiratory distress, decreased breath sounds, crackles - Cardiovascular Exam Cardiac:: Present: S1, S2 - GI Exam GI:: Present: soft - Skin Exam Skin: Present: warm, no rash - Neurological Exam Neurological: Present: alert, awake - Extremities Exam Extremities: Present: no cyanosis, no clubbing, edema Comments: Weakness and decreased muscle strength Assessment and Plan (1) Acute respiratory failure with hypercapnia Status: Acute Category: Medical Code(s): J96.02 - Acute respiratory failure with hypercapnia (2) Severe sepsis with acute organ dysfunction Status: Acute Category: Medical Code(s): A41.9 - Sepsis, unspecified organism; R65.20 - Severe sepsis without septic shock (3) HCAP (healthcare-associated pneumonia) Status: Acute Category: Medical Code(s): J18.9 - Pneumonia, unspecified organism (4) Chronic obstructive pulmonary disease, unspecified Status: Acute Category: Medical Code(s): J44.9 - Chronic obstructive pulmonary disease, unspecified (5) Thoracic kyphosis Status: Acute Category: Medical Code(s): M40.204 - Unspecified kyphosis, thoracic region (6) Chronic respiratory failure with hypoxia and hypercapnia Status: Acute Category: Medical Code(s): J96.11 - Chronic respiratory failure with hypoxia; J96.12 - Chronic respiratory failure with hypercapnia (7) Cervical stenosis of spine Status: Acute Category: Medical Code(s): M48.02 - Spinal stenosis, cervical region (8) Pulmonary artery hypertension Status: Acute Category: Medical Code(s): I27.21 - Secondary pulmonary arterial hypertension - Assessment and plan all Dx Assessment and Plan for all problems:: #Acute on chronic hypoxic respiratory failure: #Hypercarbic respiratory failure #Pneumonia: #Mediastinal lymphadenopathy: #Pulmonary hypertension Ms. Bolanos is a 79-year-old female as per the patient is a never smoker, significant secondhand exposure, carries a prior diagnosis COPD, intermittently used inhalers, not on home oxygen therapy until February 2020 where she was prescribed oxygen therapy however she is not compliant with that, diagnosis of congestive heart failure was admitted to the hospital on July 09 and has been having fluctuating hospital course with waxing and waning oxygen requirements eventually worsened and has been on BiPAP/high flow with CT without contrast performed that showed bilateral pleural effusions along with associated atelectasis/airspace disease, elevated left hemidiaphragm and lymphadenopathy, pulmonary was called for further management. On this hospital admission patient urine culture positive for E. coli and blood culture in one bottle positive for staph epi. Nasal MRSA culture negative. Sputum sample available. Patient during her hospital completed a 7-day course-levofloxacin for hospital-acquired pneumonia. Patient also on long-term anticoagulation for her chronic atrial fibrillation Patient respiratory status since admission has been fluctuating between BiPAP no high flow nasal, without any significant improvement. Overall This patient is having multiple comorbidities including congestive heart failure, evidence of pulmonary hypertension/RV strain on the echo, bilateral lower lobe pneumonia and possible COPD. Patient CT spine recent also showed severe spinal canal stenosis that is complicating clinical status from neuromuscular weakness. The possibility of malignancy can nieves
--- NOTE | 2020-07-21 15:28 | HMH.DEATH ---
Pronouncement Note - Date and Time of Date of : 07/21/20 Time of : 03:09 - Summary Additional details: I was called to the bedside from the emergency department for the pronouncement. I was not involved in her care. - Additional Data Confirmation of : no pulse, no respirations, no heart sounds, pupils fixed and dilated Family: at bedside Attending physician: Reddy Pedro MD Was code activated?: No (DNR) Autopsy requested?: No
--- NOTE | 2020-07-21 15:40 | PC.NURSE ---
1225- Spoke with Dr Bear regarding patients status, patients BP is beginning to decline, has not responded to lasix drip, has had only 20cc of urine since initiation, current BP 71/36, HR 72, RR 24, O2 95% on bipap at 100%. Given order to start milrinone drip titrate to keep MAP 65. 1228- Dr Pedro updated on patients status at this time. 1415- Hospice nurse at bedside with family at this time to discuss plan of care 1421- Patient made decision to have comfort measures only, bipap removed at this time, placed on nasal cannula, given morphine for air hunger, Dr Pedro notified at this time, given orders for comfort meds 1509- Patient , Dr Norris at bedside to pronounce 1519- [facility] contacted at this time, excluded from donation, Spoke with Naldo Vital, given case # [id number]
--- NOTE | 2020-07-21 16:54 | PC.NURSE ---
Post Mortem Care completed at this time
--- NOTE | 2020-07-27 07:31 | HMH.DCSUM ---
General - General Admission date:: 07/08/20 Discharge date: 07/21/20 HPI HPI: 79-year-old white female who follows with a nurse practitioner clinic in [place], [place], who has been diagnosed with CHF and is on chronic Lasix therapy. Her niece reports that over the past week she has had diminished urine output and has been somewhat more lethargic, they called nurse practitioner's office who recommended increasing Lasix about 3 days ago. This was done and for the first day she had increasing urine output and went to the bathroom quite a bit but then this seemed to stop. She then became more breathless through the day yesterday, was slightly confused and was brought to the emergency department. In the emergency department she was noted to be relatively hypoxic even on 3 L nasal cannula, required more oxygen, diagnosis of CHF exacerbation was made with elevated BNP levels and patient was admitted to hospital after having received IV Lasix in the emergency department. Mcmillan catheter was not inserted and urine output measurements have been somewhat erratic. Through the night patient did well until approximately 430 this morning when she had sudden decompensation, unresponsiveness, worsening respiratory status and significant acidosis on blood gas. Nursing staff reports that she might have aspirated on some food yesterday evening. She was made n.p.o., but also had some choking spells on some medication. Rapid response was called-appreciate emergency department physician responding and documentation. Placed on BiPAP, found to be hypotensive and transferred to stepdown unit. I was notified, patient meets criteria for severe sepsis, antibiotics have been started, 30 mg/kg fluid bolus has been started and Levophed has also been started. I reviewed her labs, x-ray films personally and discussed case with family. Patient has maintained a DNI status, we will continue to respect this. I had a conversation with her niece at the bedside regarding her overall condition and prognosis. Hospital Course Hospital Course: Patient was admitted with a diagnosis of CHF exacerbation and an by the following morning he developed acute respiratory failure from COPD and chronic lung disease with hypoxemia and hypercapnia. Patient responded well to BiPAP initially. After initial use of BiPAP patient was able to be weaned to high flow nasal cannula by July 11. From that point on patient's hospital course was variable. Patient would show signs of improvement with decreased oxygen requirement, improved level of alertness followed by several days of depressed level of consciousness and signs of hypercapnia. Ultimately patient was continued on HFNC during the day with use of BiPAP at night which the patient tolerated but was opposed to. Patient completed a course of antibiotics with cefepime and azithromycin for pneumonia during hospitalization. Dr. Bear was consulted. During hospitalization echocardiogram showed evidence of pulmonary hypertension and right heart failure. Patient was diuresed with Lasix with little improvement in oxygenation status. Patient's lung exam during hospitalization generally had diminished breath sounds with poor airflow with occasional basilar rales. On July 20 discussion was had with patient regarding her lack of improvement and consideration of palliative care. Patient was awake and alert during this conversation and her goal was to ultimately return home. Decision was made to proceed with a Lasix drip which patient had poor response to and developed hypotension. Patient had milrinone started with lack of response as well. Hospice was consulted to explain the role to the patient. During our conversation with hospice patient desatted and when discussion was had regarding reapplication of BiPAP patient refused. Patient was placed on nasal cannula and passed a short time later. Please see ER physician's note for pronouncement P
== END 2020-07-21 18:42 | disposition expired | DRG 871 ==
LOC: ER 15:18 → 2ND 07-09 06:15
PROVIDERS: Emergency Medicine; Internal Medicine Adolescent Medicine; Internal Medicine Pulmonary Disease; Admitting Provider Family Medicine; Emergency Provider Family Medicine; PCP Nurse Practitioner Family; Visit Provider Family Medicine
DX: J96.02 Acute respiratory failure with hypercapnia (principal); J18.9 Pneumonia, unspecified organism; J69.0 Pneumonitis due to inhalation of food and vomit; J96.01 Acute respiratory failure with hypoxia; J44.0 Chronic obstructive pulmonary disease with (acute) lower respiratory infection; A41.9 Sepsis, unspecified organism; N17.9 Acute kidney failure, unspecified; Z20.822 Contact with and (suspected) exposure to COVID-19; R65.20 Severe sepsis without septic shock; I50.9 Heart failure, unspecified; I11.0 Hypertensive heart disease with heart failure; Z95.0 Presence of cardiac pacemaker; I48.91 Unspecified atrial fibrillation; I25.10 Atherosclerotic heart disease of native coronary artery without angina pectoris; I27.20 Pulmonary hypertension, unspecified; Z95.5 Presence of coronary angioplasty implant and graft; M19.90 Unspecified osteoarthritis, unspecified site; Z88.8 Allergy status to other drugs, medicaments and biological substances
CPT/HCPCS: 36415; 70450; 71045; 71250; 72125; 80048; 80053; 80202; 81001; 82803; 82962; 83605; 83880; 84484; 85007; 85025; 87040; 87077; 87081; 87086; 87088; 87186; 92610; 93005; 93306; 93970; 94640; 94660; 94760; 94761; 96374; 97163; 97166; 97530; 99284; J0692; J1956; J2185; J2260; J3370; U0003